=== PATIENT | male | born 1935 | race Caucasian/White ===

== ENCOUNTER → 2016-12-15 | Outpatient (CLI) | payer OTHER ==
[~2016-12-15] VITALS: Ht 182.9 cm; Wt 105.2 kg
[~2016-12-15] MED LIST: ADENOSINE 88 MG in GIVE UN-DILUTED 0 ML IV ONE; ADENOSINE 90 MG/30 ML INJ IV ONE; SPIR50TA
== END | disposition home or self-care (01) ==
LOC: Rad HDHVI 08:19
PROVIDERS: ATTEND Internal Medicine Cardiovascular Disease
DX: I48.2 Chronic atrial fibrillation (principal); I10 Essential (primary) hypertension
CPT/HCPCS: 78452; 93005; 93306; 96374; 96375; A9500; J0153

== ENCOUNTER → 2019-10-19 | Emergency (ER) | payer OTHER ==
[~2019-10-19] VITALS: Ht 182.9 cm; Wt 106.6 kg
[~2019-10-19] MED LIST changes: -ADENOSINE 88 MG in GIVE UN-DILUTED 0 ML IV ONE; -ADENOSINE 90 MG/30 ML INJ IV ONE; +AZITHROMYCIN 500MG/ 250ML 250 ML IV ONE; +cefTRIAXone 1GM/50ML D5W 50 ML IV ONE
[2019-10-19 16:22] LABS: Basophils # (auto) 0 10 ^3/uL (0-0.2); Basophils % (auto) 0.1 % (0.0-2.0); Eosinophils # (auto) 0 10 ^3/uL (0-0.8); Hematocrit 39.6 % (41.0-53.0); Hemoglobin 13.1 g/dL (13.5-17.5); Lymphocytes # (auto) 0.4 10 ^3/uL (0.4-5.4); Lymphocytes % (auto) 2.3 % (10.0-50.0); Mean Corpuscular Hemoglobin 32.4 pg (28.0-32.0); Mean Corpuscular Volume 98.1 fL (80.0-100.0); Monocytes # (auto) 1.2 10 ^3/uL (0-1.3); Monocytes % (auto) 6.1 % (0.0-12.0); Neutrophils # (auto) 17.2 10 ^3/uL (1.6-8.6); Neutrophils % (auto) 91.5 % (37.0-80.0); Platelet Count (auto) 139 10^3/uL (140-450); Red Blood Cells 4.04 10^6/uL (4.5-5.90); Red Cell Distribution Width 15.8 % (11.8-14.3); White Blood Cell 18.8 10^3/uL (4.4-10.8)
[2019-10-19 16:37] LABS: INR 1.23 (0.9-1.15); Partial Thromboplastin Time 34.7 sec (23.64-32.05)
[2019-10-19 16:38] LABS: Albumin 3.7 g/dL (3.4-5.0); Calcium 9.2 mg/dL (8.5-10.1); Potassium 4.4 mmol/L (3.5-5.1)
[2019-10-19 16:43] LABS: BUN/Creatinine Ratio 20.3; Total Protein 7.3 g/dL (6.4-8.2)
[2019-10-19 17:19] VITALS: BP 133/48
== END | disposition home or self-care (01) ==
LOC: EDUNIT# 14:59 → EDBD 14:59 → ER 14:59 → EEVIPCON 14:59
DX: S12.000A Unspecified displaced fracture of first cervical vertebra, initial encounter for closed fracture (principal); S09.8XXA Other specified injuries of head, initial encounter; J06.9 Acute upper respiratory infection, unspecified; I10 Essential (primary) hypertension; Z87.11 Personal history of peptic ulcer disease; W06.XXXA Fall from bed, initial encounter; Y93.89 Activity, other specified; Y92.89 Other specified places as the place of occurrence of the external cause; Y99.8 Other external cause status
CPT/HCPCS: 36415; 70450; 71250; 72125; 80053; 85025; 85610; 85730; 96365; 99285; J0456; J0696

== ENCOUNTER 2019-10-25 23:34 | Inpatient (IN) | payer OTHER ==
[~2019-10-25] VITALS: Ht 193 cm; Wt 103.0 kg
[~2019-10-25 23:34] MED LIST changes: -AZITHROMYCIN 500MG/ 250ML 250 ML IV ONE; -cefTRIAXone 1GM/50ML D5W 50 ML IV ONE
[2019-10-26 01:16] LABS: Basophils # (auto) 0 10 ^3/uL (0-0.2); Basophils % (auto) 0.1 % (0.0-2.0); Eosinophils # (auto) 0 10 ^3/uL (0-0.8); Lymphocytes # (auto) 0.5 10 ^3/uL (0.4-5.4); Lymphocytes % (auto) 6.6 % (10.0-50.0); Mean Corpuscular Hemoglobin 32.3 pg (28.0-32.0); Mean Corpuscular Hgb Conc. 33.3 g/dL (32.0-36.0); Mean Corpuscular Volume 97.2 fL (80.0-100.0); Monocytes # (auto) 0.9 10 ^3/uL (0-1.3); Monocytes % (auto) 11.7 % (0.0-12.0); Neutrophils # (auto) 6.3 10 ^3/uL (1.6-8.6); Neutrophils % (auto) 81.6 % (37.0-80.0); Platelet Count (auto) 226 10^3/uL (140-450); Red Blood Cells 4.32 10^6/uL (4.5-5.90); Red Cell Distribution Width 15.3 % (11.8-14.3); White Blood Cell 7.7 10^3/uL (4.4-10.8)
[2019-10-26 01:26] LABS: INR 1.21 (0.9-1.15); Partial Thromboplastin Time 34.7 sec (23.64-32.05)
[2019-10-26 01:28] LABS: Calcium 9.4 mg/dL (8.5-10.1); Potassium 4.9 mmol/L (3.5-5.1)
[2019-10-26 01:30] LABS: Lactic Acid w/Reflex 2.5 mmol/L (0.4-2.0)
[2019-10-26 01:32] LABS: Bilirubin, Total 2.3 mg/dL (0.2-1.0); Total Protein 7.3 g/dL (6.4-8.2)
[2019-10-26] MEDS ORDERED: HYDROcodone-ACET 10/325MG TAB PO PRN (06:45)
[2019-10-26 08:01] LABS: Urine Bacteria NONE SEEN /hpf (None Seen); Urine Blood 1+ /uL (Negative); Urine Hyaline Cast FEW /lpf (0 - 2); Urine Specific Gravity 1.017 (1.001-1.035); Urine WBC 6 /hpf (0 - 3)
[2019-10-26] MEDS ORDERED: ENOXAPARIN SOD 40 MG/0.4 ML SYRINGE SC ONE (10:00)
[2019-10-26] MEDS ORDERED: FUROSEMIDE 20 MG/2 ML VIAL IV ONE (10:00)
[2019-10-26] MEDS ORDERED: CELECOXIB 100 MG CAP PO ONE (10:00)
[2019-10-26] MEDS ORDERED: methylPREDNISolone SOD SUCC 125 MG/2 ML VL IV ONE (10:00)
[2019-10-26] MEDS ORDERED: POTASSIUM CHL 10 Meq TABLET PO ONE (10:00)
[2019-10-26 12:31] VITALS: BP 108/57
[2019-10-26 16:37] VITALS: BP 94/51
[2019-10-26] MEDS ORDERED: PANTOPRAZOLE 40 MG TAB PO SCH (22:00)
== END 2019-10-26 18:51 | DRG 551 ==
LOC: EEVIPCON 23:34 → ER 23:34 → OVERFLOW 23:35 → WEST WING 10-26 09:06
PROVIDERS: ADMIT Internal Medicine; ATTEND Internal Medicine
DX: M50.90 Cervical disc disorder, unspecified, unspecified cervical region (principal); I50.43 Acute on chronic combined systolic (congestive) and diastolic (congestive) heart failure; I48.91 Unspecified atrial fibrillation; I11.0 Hypertensive heart disease with heart failure; J44.9 Chronic obstructive pulmonary disease, unspecified; S09.90XA Unspecified injury of head, initial encounter; W18.39XA Other fall on same level, initial encounter; Z87.11 Personal history of peptic ulcer disease; Z87.891 Personal history of nicotine dependence; Z91.19 Patient's noncompliance with other medical treatment and regimen; Y93.89 Activity, other specified; Y92.89 Other specified places as the place of occurrence of the external cause; Y99.8 Other external cause status
CPT/HCPCS: 36415; 71045; 80053; 81001; 82728; 83605; 83880; 84484; 85025; 85610; 85730; 87040; 87070; 87804; 87880; 93005; 96372; 96374; 96375; G0378

== ENCOUNTER 2019-11-09 11:35 | Inpatient (IN) | payer OTHER ==
[~2019-11-09] VITALS: Ht 190.5 cm; Wt 117.8 kg
[2019-11-09] VITALS (14 sets, daily range): BP systolic 89–128; BP diastolic 44–65
[2019-11-09] MEDS ORDERED: SODIUM CHLORIDE 0.9% 1,000 ML IV ONE ×2 (12:21)
[2019-11-09 13:12] LABS: Basophils # (auto) 0 10 ^3/uL (0-0.2); Basophils % (auto) 0.1 % (0.0-2.0); Eosinophils # (auto) 0 10 ^3/uL (0-0.8); Hemoglobin 12.6 g/dL (13.5-17.5); Lymphocytes # (auto) 0.2 10 ^3/uL (0.4-5.4); Lymphocytes % (auto) 1.8 % (10.0-50.0); Mean Corpuscular Hemoglobin 31.9 pg (28.0-32.0); Mean Corpuscular Volume 96.7 fL (80.0-100.0); Monocytes # (auto) 0.6 10 ^3/uL (0-1.3); Neutrophils # (auto) 12.1 10 ^3/uL (1.6-8.6); Neutrophils % (auto) 93.1 % (37.0-80.0); Nucleated Red Blood Cells % 0.1 %; Platelet Count (auto) 247 10^3/uL (140-450); Red Blood Cells 3.93 10^6/uL (4.5-5.90); Red Cell Distribution Width 14.5 % (11.8-14.3)
[2019-11-09 13:32] LABS: Albumin 2.1 g/dL (3.4-5.0); Calcium 8.3 mg/dL (8.5-10.1)
[2019-11-09 13:38] LABS: BUN/Creatinine Ratio 16.3; Bilirubin, Total 1.1 mg/dL (0.2-1.0); Total Protein 6.6 g/dL (6.4-8.2)
[2019-11-09 13:44] LABS: Potassium 6.8 mmol/L (3.5-5.1)
[2019-11-09] MEDS ORDERED: SODIUM BICARBONATE 8.4% INJ 50ML SYRINGE IV ONE (13:45)
[2019-11-09] MEDS ORDERED: InsuLIN REG 1unit/0.01ml Soln (100units/ml) IV ONE (13:45)
[2019-11-09] MEDS ORDERED: ALBUTEROL SULF 2.5 MG/0.5ML(0.5%) NEB SOLN NEB ONE (13:45)
[2019-11-09] MEDS ORDERED: CALCIUM GLUC 4.65meq/50ml D5AE 50 ML IV ONE (13:45)
[2019-11-09] MEDS ORDERED: DEXTROSE (50%) 50ML SYRG IV ONE (13:45)
[2019-11-09] MEDS: SODIUM ZIRCONIUM CYCL 10 GM PAK PO SCH ×2 (14:45→22:00)
[2019-11-09] MEDS: NOREPINEPHRINE 8 MG/250ML KIT 250 ML IV SCH (15:26)
[2019-11-09] MEDS ORDERED: ALBUMIN 25% 50 ML IV ONE (15:30)
[2019-11-09 17:50] LABS: Urine Bacteria MOD /hpf (None Seen); Urine Blood 3+ /uL (Negative); Urine WBC 4085 /hpf (0 - 3)
[2019-11-09 17:56] LABS: Urine Specific Gravity 1.012 (1.001-1.035)
[2019-11-09] MEDS: SODIUM BICARBONATE 50ML VIAL 75 ML in D5W/SOD CHL 0.45% 1,000 ML IV SCH (17:58)
[2019-11-09] MEDS ORDERED: PIPERACILLIN-TAZOB 3.375GM 100 ML IV SCH (18:45)
[2019-11-09] MEDS ORDERED: MORPHINE SULF INJ 2 MG/ML SYRINGE 1ML IV PRN (18:45)
[2019-11-09] MEDS ORDERED: ONDANSETRON HCL 4 MG/2 ML VIAL IV SCH (18:45)
[2019-11-09] MEDS ORDERED: MORPHINE SULFATE 4 MG/ML SYR/VIAL IV SCH (18:45)
[2019-11-09] MEDS ORDERED: NITROGLYCERIN 0.4 MG SL TAB SL PRN (18:45)
[2019-11-09] MEDS ORDERED: ONDANSETRON HCL 4 MG/2 ML VIAL IV PRN (19:15)
[2019-11-09 20:38] LABS: Amphetamine Screen, Urine NEGATIVE (NEGATIVE); Barbiturate Scree,Urine NEGATIVE (NEGATIVE); Benzodiazephine Screen, Urine NEGATIVE (NEGATIVE); Cannabinoid Screen, Urine NEGATIVE (NEGATIVE); Cocaine Screen, Urine NEGATIVE (NEGATIVE); Opiate Scree,Urine NEGATIVE (NEGATIVE); Phencyclidine Screen, Urine NEGATIVE (NEGATIVE)
[2019-11-09 21:37] LABS: BUN/Creatinine Ratio 14.9; Calcium 8.4 mg/dL (8.5-10.1); Potassium 5.4 mmol/L (3.5-5.1)
[2019-11-09] MEDS: PIPERACILLIN-TAZOB 2.25GM 50 ML IV SCH (22:00)
--- NOTE | 2019-11-09 22:42 | NUR ---
dr Jeong was called to inform him the latest chemistry result: k+ is 5.4 and Na-127, co2-15 , bun-129' and cr-8.68
--- NOTE | 2019-11-09 22:47 | NUR ---
at 1999, pt was received from emergency room per stretcher in no acute distress with IVs intactlfa and rfa with levophed at 5mcg/min and d51/2 with 50 meq nabicarb at 100 ml/hr. On sr and afebrile. álvarez ath draining well
--- NOTE | 2019-11-09 22:50 | NUR ---
at 2030 repositioned and refused oral care and was screaming rojelio when turned. vital signs are stable
[2019-11-10] VITALS (93 sets, daily range): BP systolic 42–132; BP diastolic 38–70
--- NOTE | 2019-11-10 03:32 | NUR ---
2200 asleep and no resp distress. hob up to 45 degrees
--- NOTE | 2019-11-10 03:33 | NUR ---
0000, repositioned , oral care done
--- NOTE | 2019-11-10 04:34 | NUR ---
0200- sleeping,Remains on controlled afib
--- NOTE | 2019-11-10 04:36 | NUR ---
0400 repositioned. refused am care and oral care,doesnt want to open eyes
[2019-11-10 05:07] LABS: Basophils # (auto) 0 10 ^3/uL (0-0.2); Basophils % (auto) 0.2 % (0.0-2.0); Eosinophils # (auto) 0 10 ^3/uL (0-0.8); Hematocrit 34.2 % (41.0-53.0); Hemoglobin 11.3 g/dL (13.5-17.5); Lymphocytes # (auto) 0.2 10 ^3/uL (0.4-5.4); Mean Corpuscular Hemoglobin 31.7 pg (28.0-32.0); Monocytes # (auto) 0.9 10 ^3/uL (0-1.3); Monocytes % (auto) 5.3 % (0.0-12.0); Neutrophils # (auto) 16.3 10 ^3/uL (1.6-8.6); Neutrophils % (auto) 93.5 % (37.0-80.0); Platelet Count (auto) 237 10^3/uL (140-450); Red Blood Cells 3.56 10^6/uL (4.5-5.90); White Blood Cell 17.5 10^3/uL (4.4-10.8)
[2019-11-10 05:31] LABS: Albumin 1.9 g/dL (3.4-5.0); BUN/Creatinine Ratio 15.7; Calcium 7.9 mg/dL (8.5-10.1); Potassium 5.1 mmol/L (3.5-5.1)
[2019-11-10 05:34] LABS: Bilirubin, Total 0.9 mg/dL (0.2-1.0); Total Protein 5.9 g/dL (6.4-8.2)
[2019-11-10] MEDS: SODIUM ZIRCONIUM CYCL 10 GM PAK PO SCH ×3 (05:50→21:33)
[2019-11-10] MEDS: SODIUM BICARBONATE 50ML VIAL 75 ML in D5W/SOD CHL 0.45% 1,000 ML IV SCH ×3 (06:10→23:00)
--- NOTE | 2019-11-10 07:30 | NUR ---
ASSESS- PT. LYING IN BED WITH EYES CLOSED, AROUSABLE TO NAME. ALERT TO SELF ONLY. DENIES ANY PAIN. PT. HAS HARD C-COLLAR IN PLACE 2ND. HX. OF C-SPINE FX. LUNGS CLEAR ROEL. INSPIRATORY AND EXPIRATORY. NO SOB. ON R/A. NO COUGH. ABD. SOFT, FLAT, NON-TENDER. BOWEL SOUNDS ALL FOUR QUADRANTS. F/C TO GRAVITY WITH CLEAR DK. JOAN/BROWN URINE. ARMS WEAK ROEL. LOWER LEGS WITH SEVERE WEAKNESS ROEL. PT. IS INMATE, 2 GUARDS AT BS. ROEL. LE IN SHACKLES WITH ABD. PAD UNDER EACH SHACKLE TO PROTECT THE SKIN. LT. HEEL WITH DTI, OPTIFOAM DSG. D/I. SACRUM WITH ERYTHEMA, BLANCHABLE. LT. ELBOW WITH OPEN WOUND WITH OPTIFOAM DSG. D/I. RT. FOREARM WITH SCAB. RADIAL PULSES WEAK, PALPABLE ROEL. DORSALIS PEDAL PULSES WEAK, PALPABLE ROEL. 1 PLUS EDEMA FT./ANKLES ROEL. ON LEVOPHED GTT. AT 5 MCG. SBP 90'S. IN A-FIB, HR 70'S-80'S WITHOUT ECTOPY.
[2019-11-10] MEDS: PIPERACILLIN-TAZOB 2.25GM 50 ML IV SCH ×2 (09:40→21:33)
[2019-11-10] MEDS: ENOXAPARIN SOD 30 MG/0.3 ML SYRINGE SC SCH (09:40)
--- NOTE | 2019-11-10 10:30 | NUR ---
SBP 90'S-100'S. ON LEVOPHED GTT. AT 5 MCG. MONITORING BP.
--- NOTE | 2019-11-10 13:00 | NUR ---
DR. CHAVEZ Provider/Hospitalist at bedside. GAVE UPDATE ON PT. NEW ORDERS RECEIVED.
--- NOTE | 2019-11-10 13:00 | NUR ---
WOUND CARE NOTE: IN TO SEE PATIENT AT THIS TIME PER WOUND CARE CONSULT REQUEST. PATIENT WAS NOTED UPON ADMIT TO HAVE WOUNDS. ALL WOUNDS PHOTOGRAPHED AT THAT TIME BY BEDSIDE NURSE FOR REFERENCE. PATIENT ADMITTED TO [facility] WITH DIAGNOSIS OF ACUTE RENAL FAILURE. CURRENT JANE SCORE IS 11. PATIENT IS VERY HARD OF HEARING. HE IS S/P FALL PER GUARD AT BEDSIDE. HE FELL OUT OF HIS WHEELCHAIR, AND OBTAINED MULTIPLE WOUNDS. HE HAS BEEN STAYING AT A SNF RECENTLY, PRIOR TO ADMISSION. PATIENT IS NOTED TO HAVE A FULL THICKNESS WOUND TO THE LEFT ELBOW. 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 WOUND MEASURES 0.5 X 0.5 CM, WITH YELLOW WOUND BED, RED PERIWOUND. PERIWOUND IS ALSO EDEMATOUS, WITH WHAT FEELS LIKE FLUID COLLECTION, SUBCUTANEOUSLY. BEDSIDE NURSE MADE AWARE. APPLIED THERAHONEY, OPTIFOAM GENTLE DRESSING.SMALL DTI OVER MASD TO SACRUM/BUTTOCK NOTED. SKIN REMAINS INTACT, PURPLE AND BRIGHT RED. PATIENT ALSO HAS ERYTHEMA THAT IS NON BLANCHABLE WELL BLANCHABLE TO BILATERAL HEELS. SKIN INTACT. PATIENT HAS MULTIPLE SCABBED ABRASIONS/SKIN TEARS TO BILATERAL ARMS. RECOMMEND: FREQUENT TURN SCHEDULE Q2 HOURS, PRN CONDITION PERMITS, WITH PRESSURE REDISTRIBUTION USING PILLOWS/WEDGES, ELEVATION OF BILATERAL HEELS WITH PILLOWS TO OFFLOAD PRESSURE, LOW AIRLOSS, SOFT SETTING ON ICU BED, BID/PRN MOISTURE BARRIER CREAM, OPTIFOAM GENTLE SACRAL DRESSING TO SACRUM/BUTTOCK, NO MASSAGE OF ELENI OR PURPLE SKIN TO THE SACRUM/BUTTOCKS, SKIN/WOUND CARE PLAN, DIETARY CONSULT, CONTINUED MONITORING BY WOUND CARE TEAM. Addendum: 11/10/19 at 1555 by Jaida Hugo RN Amended: Links added.
[2019-11-10] MEDS ORDERED: BUMETANIDE 2.5mg/10ml (0.25 mg/ml) INJ IV ONE (13:15)
--- NOTE | 2019-11-10 13:15 | NUR ---
WOUND CARE BRIAN ADAMS HERE FOR EVALUATION.
[2019-11-10] MEDS: NOREPINEPHRINE 8 MG/250ML KIT 250 ML IV SCH ×2 (14:58→16:50)
--- NOTE | 2019-11-10 15:53 | NUR ---
DR. SHARMA Provider/Hospitalist at bedside. GAVE UPDATE ON PT. NEW ORDERS RECEIVED.
[2019-11-10] MEDS ORDERED: ALBUTEROL SULF 2.5 MG/0.5ML(0.5%) NEB SOLN NEB PRN (16:15)
[2019-11-10] MEDS ORDERED: SODIUM CHLORIDE 0.9% 1,000 ML IV ONE ×2 (16:15→16:30)
[2019-11-10] MEDS ORDERED: VANCOMYCIN PER PHARMACY 0 MG IV SCH (16:15)
[2019-11-10] MEDS ORDERED: VANCOMYCIN 1GM/250ML 250 ML IV ONE (16:45)
--- NOTE | 2019-11-10 18:00 | NUR ---
PT. HAS BEEN RESTING WITH EYES CLOSED. NO SIGNS OF DISTRESS OR DISCOMFORT.
--- NOTE | 2019-11-10 18:15 | NUR ---
Respiratory note: PT RECEIVED ON RA. PT IS CURRENTLY IN NO RESP DISTRESS AT THIS TIME. BS CLR/DIM T/O. SPO2 96%, HR 87, RR 16. NO PRN TX INDICATED. GUARDS BY BEDSIDE WATCHING PT, PT IN NECK BRACE.
[2019-11-10] MEDS: BUMETANIDE 2.5mg/10ml (0.25 mg/ml) INJ IV SCH (21:32)
[2019-11-11] VITALS (38 sets, daily range): BP systolic 77–139; BP diastolic 40–70
--- NOTE | 2019-11-11 03:47 | NUR ---
AT 0130 AM bp DOWN TO 77/46 WHILE i WAS ON BREAK AND JOHNNIE RN TITRATE UP TH RATE TO 9MCG/MIN.AT 0315 i CHANGED THE bp CUFF TO LEFT ARM FROM THE RIGHT ARM AND bpSYSTOLIC WAS UP TO110, oBSERVED THAT THE LEVOPHED SITE IS LUIS EECHYMOTIC AND BLACKISH AND SWOLLEN, rEINSERTED ANGIO CATH 20 GAUGE ON THE LEFT FOREARM WITH GOOD BLLOD RETUN AND TRANSFERRED THE lEVOPHED TO THE [facility], .THE AFFECTED SWOLLEN AND BLACKISH PURPLE RIGHT ARM WAS ELEVATED IN A PILLOWAND APPLIED ice AND DOCUMENTED AND PHOTOGRAPHED, LEVOPHED OFF THIS TIME
--- NOTE | 2019-11-11 03:54 | NUR ---
AT 0230AM, PT WAS BATHED AND CHANGED GOWN AND LINENS, ORAL CARE GIVEN , MOUTH AND LIPS ARE DRIED WASHED AND PETROLATUM APPLIED
[2019-11-11 03:56] LABS: Basophils # (auto) 0 10 ^3/uL (0-0.2); Basophils % (auto) 0.1 % (0.0-2.0); Eosinophils # (auto) 0 10 ^3/uL (0-0.8); Hematocrit 33.8 % (41.0-53.0); Hemoglobin 11.2 g/dL (13.5-17.5); Lymphocytes # (auto) 0.3 10 ^3/uL (0.4-5.4); Lymphocytes % (auto) 2.1 % (10.0-50.0); Mean Corpuscular Hemoglobin 31.6 pg (28.0-32.0); Mean Corpuscular Volume 95.7 fL (80.0-100.0); Monocytes # (auto) 0.9 10 ^3/uL (0-1.3); Monocytes % (auto) 5.9 % (0.0-12.0); Neutrophils # (auto) 14.2 10 ^3/uL (1.6-8.6); Neutrophils % (auto) 91.9 % (37.0-80.0); Nucleated Red Blood Cells % 0.1 %; Platelet Count (auto) 212 10^3/uL (140-450); Red Blood Cells 3.53 10^6/uL (4.5-5.90); Red Cell Distribution Width 14.7 % (11.8-14.3); White Blood Cell 15.5 10^3/uL (4.4-10.8)
[2019-11-11 04:14] LABS: BUN/Creatinine Ratio 15.4; Calcium 7.6 mg/dL (8.5-10.1); Potassium 4.6 mmol/L (3.5-5.1)
[2019-11-11] MEDS: SODIUM BICARBONATE 50ML VIAL 75 ML in D5W/SOD CHL 0.45% 1,000 ML IV SCH ×2 (06:18→20:39)
[2019-11-11] MEDS: SODIUM ZIRCONIUM CYCL 10 GM PAK PO SCH (06:18)
--- NOTE | 2019-11-11 09:10 | NUR ---
NUTRITION Patient was feed breakfast: had a three spoonfuls of apple sauce and two of oatmeal. Patient refused anything else. Also had sips of water. Patient tolerated well.
[2019-11-11] MEDS: BUMETANIDE 2.5mg/10ml (0.25 mg/ml) INJ IV SCH ×2 (10:26→21:41)
[2019-11-11] MEDS: ENOXAPARIN SOD 30 MG/0.3 ML SYRINGE SC SCH (10:26)
[2019-11-11] MEDS: PIPERACILLIN-TAZOB 2.25GM 50 ML IV SCH (10:26)
[2019-11-11] MEDS: ALBUMIN 25% 100 ML IV SCH ×2 (10:26→17:54)
--- NOTE | 2019-11-11 12:20 | NUR ---
MD Dr. Joshua at bedside updated on patient condition with new orders. This RN to input into system. MD spoke to patient regarding plan of care. Will carry out orders per MD.
--- NOTE | 2019-11-11 13:15 | NUR ---
WOUND CARE NOTE: IN TO ASSESS NEW WOUND CONCERN AT THIS TIME. BEDSIDE NURSE PHOTOGRAPHED A NEW IV INFILTRATION TO THE RIGHT FOREARM FOR REFERENCE. PATIENT'S RIGHT FOREARM IS EDEMATOUS, WITH ERYTHEMA AND ECCHYMOSIS. ADVISED BEDSIDE NURSE TO ELEVATE ARM UP ONTO PILLOWS FOR EDEMA CONTROL, AND CLOSELY MONITOR SKIN TO THE AREA. NO BLISTERING NOTED AT THIS TIME. WOUND CARE TEAM WILL CONTINUE TO MONITOR PATIENT FOR SKIN INTEGRITY. Addendum: 11/11/19 at 1608 by Jaida Hugo RN Amended: Links added.
[2019-11-11] MEDS: LINEZOLID 600MG/300ML 300 ML IV SCH ×2 (13:49→21:41)
--- NOTE | 2019-11-11 15:08 | NUR ---
Nutrition Consult Est Energy needs 8541-0550 kcal (25-30 kcal/kg IBW 87.7) Est protein needs 89-118(0.6-0.8g/kg BW, consider adjusting when CHANEL resolves) Will reassess prn. Consider adding Nephrovite and Vitamin C daily Addendum: 11/11/19 at [address] Amended: Links added.
--- NOTE | 2019-11-11 18:23 | NUR ---
ASSESSED PT @ THIS TIME FOR PRN MED NEB TX. PT IS RESTING COMFORTABLY IN BED. HE STATES HIS BREATHING IS DOING FINE. NO DISTRESS NOTED. CURRENTLY ON R/A 96%, HR 90 AND RR 16. BS ARE DIMINISHED T/O. PT IS AWARE TO CALL IF HE FEELS SOB. GUARDS @ BEDSIDE.
--- NOTE | 2019-11-11 20:11 | NUR ---
PT REFUSING TO EAT DINNER PT STATED "I DON'T FEEL LIKE EATING"
--- NOTE | 2019-11-11 20:12 | NUR ---
IMPLEMENTED COOLING MEASURES - T100.2
[2019-11-11] MEDS: MORPHINE SULFATE 4 MG/ML SYR/VIAL IV PRN (21:42)
--- NOTE | 2019-11-11 22:40 | NUR ---
PAIN ASSESSMENT PATIENT IS SLEEPING COMFORTABLY IN BED, NO SIGN OF FACIAL GRIMACING.
[2019-11-12] VITALS (58 sets, daily range): BP systolic 77–133; BP diastolic 32–104
[2019-11-12] MEDS: SODIUM BICARBONATE 50ML VIAL 75 ML in D5W/SOD CHL 0.45% 1,000 ML IV SCH ×3 (01:07→17:20)
[2019-11-12] MEDS: ALBUMIN 25% 100 ML IV SCH (02:06)
--- NOTE | 2019-11-12 03:55 | NUR ---
ADVERTISING JOB TITLES UNABLE TO DRAW BLOOD FOR BMP LABS PER ADVERTISING JOB TITLES REPOT PT IS HARD STICK, "WILL TRY AGAIN IN A MORNING"
--- NOTE | 2019-11-12 06:35 | NUR ---
Respiratory note: PT ASSESSED FOR PRN MN TX. HR 84, RR 10, POX 98% ON RA, BREATH SOUNDS ARE CLEAR. NO SOB OR DISTRESS NOTED. PT NOTIFY TO HAVE RT PAGE FOR MN TX.
[2019-11-12] MEDS: MORPHINE SULFATE 4 MG/ML SYR/VIAL IV PRN ×3 (07:45→20:27)
[2019-11-12 08:17] LABS: BUN/Creatinine Ratio 15.9; Calcium 7.8 mg/dL (8.5-10.1); Potassium 4.4 mmol/L (3.5-5.1)
--- NOTE | 2019-11-12 09:30 | NUR ---
DR. MCINTYRE AT BEDSIDE: UPDATE MD UPDATED ON PT'S CURRENT STATUS, LABS FROM THIS AM AND POC FOR TODAY. INFORMED MD THAT PT'S BUN CURRENTLY IS 139. WILL CARRY OUT ANY ORDERS GIVEN. CONTINUE CARE.
[2019-11-12] MEDS: BUMETANIDE 2.5mg/10ml (0.25 mg/ml) INJ IV SCH ×2 (10:13→22:13)
[2019-11-12] MEDS: LINEZOLID 600MG/300ML 300 ML IV SCH ×2 (10:13→22:13)
[2019-11-12] MEDS: ENOXAPARIN SOD 30 MG/0.3 ML SYRINGE SC SCH (10:14)
[2019-11-12 10:41] LABS: Basophils # (auto) 0 10 ^3/uL (0-0.2); Basophils % (auto) 0.1 % (0.0-2.0); Eosinophils # (auto) 0 10 ^3/uL (0-0.8); Eosinophils % (auto) 0.1 % (0.0-7.0); Hematocrit 36.4 % (41.0-53.0); Hemoglobin 11.8 g/dL (13.5-17.5); Lymphocytes # (auto) 0.6 10 ^3/uL (0.4-5.4); Lymphocytes % (auto) 3.7 % (10.0-50.0); Mean Corpuscular Hemoglobin 31.7 pg (28.0-32.0); Mean Corpuscular Hgb Conc. 32.3 g/dL (32.0-36.0); Mean Corpuscular Volume 98.1 fL (80.0-100.0); Monocytes # (auto) 1.2 10 ^3/uL (0-1.3); Monocytes % (auto) 7.2 % (0.0-12.0); Neutrophils # (auto) 14.9 10 ^3/uL (1.6-8.6); Neutrophils % (auto) 88.9 % (37.0-80.0); Platelet Count (auto) 166 10^3/uL (140-450); Red Blood Cells 3.71 10^6/uL (4.5-5.90); White Blood Cell 16.8 10^3/uL (4.4-10.8)
[2019-11-12] MEDS: NOREPINEPHRINE 8 MG/250ML KIT 250 ML IV SCH (13:00)
[2019-11-12] MEDS: ceFAZolin 1GM/50ML 50 ML IV SCH (13:00)
--- NOTE | 2019-11-12 13:44 | NUR ---
DR. MARQUEZ AT BEDSIDE: ORDERS MD UPDATED ON PT'S CURRENT STATUS, LABS AND POC FOR TODAY. INFORMED MD ON PT'S TRENDING LABS AND HEMODYNAMICS AT THIS TIME. CONTINUE CARE.
--- NOTE | 2019-11-12 19:30 | NUR ---
PT REFUSED DINNER FOR THIS EVENING.
--- NOTE | 2019-11-12 19:35 | NUR ---
OPENING NOTE RECEIVED REPORT FROM DAY SHIFT RN AND ASSUMED CARE OF PT. PT IS RESTING IN BED WITH CERVICAL SPINE COLLAR APPLIED FOR FRACTURE, 1.5 L NC SUPPLEMENTAL 02. VITAL SIGNS STABLE WITH NO S/S OF DISTRESS. PER REPORT PT HAS BEEN BRADYPNEIC. BASS CATHETER IN PLACE AND DRAINING APPROPRIATELY. WILL CONTINUE TO MONITOR AND ASSESS PT.
[2019-11-13] VITALS (85 sets, daily range): BP systolic 83–132; BP diastolic 36–88
[2019-11-13] MEDS: MORPHINE SULFATE 4 MG/ML SYR/VIAL IV PRN ×4 (00:40→19:54)
[2019-11-13] MEDS: ceFAZolin 1GM/50ML 50 ML IV SCH ×2 (00:40→14:15)
--- NOTE | 2019-11-13 00:47 | NUR ---
PT CARE DID FULL KRISTINE CHANGE. ATTEMPTED TO GIVE PT BATH, BUT HE WAS SCREAMING, MOANING, AND THRASHING IN BED DESPITE MORPHINE ADMINISTRATION. BATH AND GOWN CHANGE HELD FOR NOW. WILL ATTEMPT AGAIN LATER.
--- NOTE | 2019-11-13 03:46 | NUR ---
CLINICAL RESEARCH DIRECTOR UNABLE TO OBTAIN LABS AT THIS TIME. WILL HAVE ANOTHER TECH ATTEMPT.
--- NOTE | 2019-11-13 04:35 | NUR ---
UNABLE TO OBTAIN LABS.
[2019-11-13] MEDS: NOREPINEPHRINE 8 MG/250ML KIT 250 ML IV SCH (05:06)
--- NOTE | 2019-11-13 05:56 | NUR ---
PRN MN TX NOT INDICATED AT THIS TIME. PT ON 2L/MIN VIA NC, 98% O2 SATS, HR 86 BPM, RR16 BPM. RESPIRATION IS EQUAL AND NON LABORED. BS ARE CLEAR TO AUSCULTATION, SKIN IS DRY AND WARM TO THE TOUCH. NO SOB OR ANY OTHER RESPIRATORY DISTRESS NOTED. WILL CONTINUE TO MONITOR PT.
--- NOTE | 2019-11-13 06:15 | NUR ---
GUZZLER BUILDER AT BEDSIDE TO ATTEMPT TO OBTAIN LABS. SUCCESSFUL. AWAITING RESULTS.
[2019-11-13] MEDS: SODIUM BICARBONATE 50ML VIAL 75 ML in D5W/SOD CHL 0.45% 1,000 ML IV SCH (06:42)
[2019-11-13 06:46] LABS: Basophils # (auto) 0 10 ^3/uL (0-0.2); Basophils % (auto) 0.1 % (0.0-2.0); Eosinophils # (auto) 0.1 10 ^3/uL (0-0.8); Eosinophils % (auto) 0.6 % (0.0-7.0); Hematocrit 32.6 % (41.0-53.0); Hemoglobin 11.1 g/dL (13.5-17.5); Lymphocytes # (auto) 0.4 10 ^3/uL (0.4-5.4); Mean Corpuscular Hemoglobin 32.6 pg (28.0-32.0); Mean Corpuscular Volume 95.9 fL (80.0-100.0); Monocytes # (auto) 0.9 10 ^3/uL (0-1.3); Monocytes % (auto) 4.8 % (0.0-12.0); Neutrophils # (auto) 17.3 10 ^3/uL (1.6-8.6); Neutrophils % (auto) 92.5 % (37.0-80.0); Platelet Count (auto) 172 10^3/uL (140-450); Red Cell Distribution Width 14.9 % (11.8-14.3); White Blood Cell 18.7 10^3/uL (4.4-10.8)
[2019-11-13 06:59] LABS: Potassium 4.2 mmol/L (3.5-5.1)
[2019-11-13 07:12] LABS: BUN/Creatinine Ratio 16.6; Calcium 7.4 mg/dL (8.5-10.1)
[2019-11-13] MEDS: BUMETANIDE 2.5mg/10ml (0.25 mg/ml) INJ IV SCH (09:35)
[2019-11-13] MEDS: LINEZOLID 600MG/300ML 300 ML IV SCH ×2 (09:43→21:31)
[2019-11-13] MEDS: PANTOPRAZOLE 40 MG/10 ML VIAL INJ IV SCH (09:46)
[2019-11-13] MEDS: ENOXAPARIN SOD 30 MG/0.3 ML SYRINGE SC SCH (10:00)
[2019-11-13] MEDS: SODIUM CHLORIDE 0.9% 1,000 ML IV SCH (12:15)
[2019-11-13 12:23] LABS: Phosphorus 8.8 mg/dL (2.5-4.90)
[2019-11-13] MEDS: FUROSEMIDE INJECTION 100 MG in SODIUM CHL 0.9% 100 ML IV SCH ×2 (13:00→21:32)
--- NOTE | 2019-11-13 15:38 | NUR ---
MD PHONE CALL; Spoke with physician from [facility], provided an update on condition and current POC.
--- NOTE | 2019-11-13 16:26 | NUR ---
Midline Placement: Patient educated on need for midline placement. All risks and benefits explained and all questions and concerns addresses prior to procedure. 18g/10cm midline inserted via right basilic vein using Ultrasound. Sterile technique utilized. Blood return obtained from lumen and flushed easily with NS using proper technique. Midline secured with saline lock; biodisc and occlusive dressing applied. Primary RN notified. Midline lot #[id number]
--- NOTE | 2019-11-13 18:45 | NUR ---
PT ASSESSED FOR PRN TX. PT IS SLEEPING WITH NO ACUTE RESP DISTRESS NOTED. TX IS NOT INDICATED. HR 88 POX 97% ON 2LNC RR 14 B/S CLEAR.
--- NOTE | 2019-11-13 19:45 | NUR ---
NUTRITION ASKED PT IF HE WOULD LIKE HIS DINNER TRAY AND HE REFUSED. STATING HE "ISN'T HUNGRY". ENCOURAGED PO INTAKE OF WATER. TOLD PT TO LET THIS RN KNOW IF HE BECAME HUNGRY. WILL ATTEMPT TO FEED PT THIS EVENING.
[2019-11-13 22:29] LABS: BUN/Creatinine Ratio 16.3; Calcium 7.5 mg/dL (8.5-10.1); Potassium 4.3 mmol/L (3.5-5.1)
[2019-11-14] VITALS (89 sets, daily range): BP systolic 88–132; BP diastolic 24–99
[2019-11-14] MEDS: ceFAZolin 1GM/50ML 50 ML IV SCH ×2 (00:39→13:52)
--- NOTE | 2019-11-14 02:00 | NUR ---
PT CARE GAVE PT CHG BATH, GOWN CHANGE, AND FULL KRISTINE CHANGE. PT DID NOT TOLERATE WELL. HE WAS MOANING, GRIMACING, AND PROTECTING THE ENTIRE TIME DESPITE USE OF RELAXATION TECHNIQUES. VITAL SIGNS STABLE. PT TURNED. DENIED PO INTAKE AGAIN. WILL MEDICATE PER MD ORDER.
[2019-11-14] MEDS: MORPHINE SULFATE 4 MG/ML SYR/VIAL IV PRN ×3 (02:24→15:35)
[2019-11-14] MEDS: NOREPINEPHRINE 8 MG/250ML KIT 250 ML IV SCH ×2 (03:35→14:15)
[2019-11-14 03:46] LABS: Basophils # (auto) 0 10 ^3/uL (0-0.2); Basophils % (auto) 0.1 % (0.0-2.0); Eosinophils # (auto) 0.1 10 ^3/uL (0-0.8); Eosinophils % (auto) 0.5 % (0.0-7.0); Hematocrit 33.2 % (41.0-53.0); Hemoglobin 11.2 g/dL (13.5-17.5); Lymphocytes # (auto) 0.4 10 ^3/uL (0.4-5.4); Mean Corpuscular Hemoglobin 32.1 pg (28.0-32.0); Mean Corpuscular Hgb Conc. 33.9 g/dL (32.0-36.0); Mean Corpuscular Volume 94.8 fL (80.0-100.0); Monocytes # (auto) 0.9 10 ^3/uL (0-1.3); Monocytes % (auto) 4.9 % (0.0-12.0); Neutrophils # (auto) 17.8 10 ^3/uL (1.6-8.6); Neutrophils % (auto) 92.5 % (37.0-80.0); Platelet Count (auto) 150 10^3/uL (140-450); Red Cell Distribution Width 15.1 % (11.8-14.3); White Blood Cell 19.2 10^3/uL (4.4-10.8)
[2019-11-14 04:03] LABS: BUN/Creatinine Ratio 15.6; Calcium 7.2 mg/dL (8.5-10.1); Potassium 4.3 mmol/L (3.5-5.1)
[2019-11-14] MEDS: SODIUM CHLORIDE 0.9% 1,000 ML IV SCH ×2 (05:45→22:02)
--- NOTE | 2019-11-14 07:04 | NUR ---
RT NOTES: NO TX INDICATED AT THIS TIME. NO SIGNS OF DISTRESS. PT STATES HE IS SLIGHTLY SOB BUT ONLY BECAUSE OF THE NECK BRACE. ON 2L NC SPO2 98 HR 91 RR 14. BP 100/58. LUNG SOUNDS CLEAR T/O. GUARD IS BEDSIDE. PT AWARE TO PAGE IF NEED FOR TX ARISES. WILL CONTINUE TO MONITOR.
--- NOTE | 2019-11-14 07:11 | NUR ---
REPORT RECEIVED FROM FLAT IRONER RN
--- NOTE | 2019-11-14 08:58 | NUR ---
DR. MCINTYRE AT BEDSIDE
[2019-11-14] MEDS: FUROSEMIDE INJECTION 100 MG in SODIUM CHL 0.9% 100 ML IV SCH ×6 (09:35→22:02)
[2019-11-14] MEDS: ALLOPURINOL 100 MG TAB PO SCH (10:11)
[2019-11-14] MEDS: LINEZOLID 600MG/300ML 300 ML IV SCH ×2 (10:11→22:01)
[2019-11-14] MEDS: PANTOPRAZOLE 40 MG/10 ML VIAL INJ IV SCH (10:11)
[2019-11-14] MEDS: ENOXAPARIN SOD 30 MG/0.3 ML SYRINGE SC SCH (10:11)
[2019-11-14 11:11] LABS: BUN/Creatinine Ratio 17.7; Calcium 7.1 mg/dL (8.5-10.1); Potassium 4.6 mmol/L (3.5-5.1)
--- NOTE | 2019-11-14 12:31 | NUR ---
Nutrition Follow-up Notes Wt.: 147.6 kg pt sleeping with guards by bedside. per pt records pt with CKD no HD yet. pt with no distress noted. currently in renal std diet with inadequate PO of < 50% x 4 per RN doc Est Energy needs 6191-0332 kcal (25-30 kcal/kg IBW 87.7) Est protein needs 89-118(0.6-0.8g/kg BW, consider adjusting when CHANEL resolves) Will reassess prn. Labs: BUN 34 H, CREAT 8.59 H, CA 7.2 L, PHOS 8.8 H Skin: Jose scale 13, mod risk, pt with multiple wounds. Please refer to wound assessment report for full details. GI: Pt had 1 BM yesterday per arranging funeral director. PES: Partially resolved: Altered nutrition related lab values r/t current medical condition aeb elev RFTs Obesity r/t excessive PO intake aeb 168% of IBW and BMI of 40.7 which is morbidly obese Will continue to monitor PO intake, skin status, pertinent labs and weight trend. F/u in 3-5 days. Rec.: 1.) Consider renal specific 90 gm protein 2 gm na low phos diet if pt not on HD. 2) continue renal std diet if pt on HD. 3) consider nephrovite and Vit C bid. 4) continue current plan of care
[2019-11-14 13:52] LABS: INR 1.56 (0.9-1.15); Partial Thromboplastin Time 42.5 sec (23.64-32.05)
--- NOTE | 2019-11-14 14:54 | NUR ---
COMFORT PATIENT RESTING NO S/S OF DISTRESS AT THIS TIME
--- NOTE | 2019-11-14 15:38 | NUR ---
PICC NURSES AT BEDSIDE
[2019-11-14] MEDS ORDERED: LIDOCAINE 1% (LOCAL ANESTH.) PF 5ml SDV ID ONE (16:45)
--- NOTE | 2019-11-14 16:53 | NUR ---
PICC line placement Patient educated on need for PICC line placement. All risks and benefits explained and all questions and concerns addressed prior to procedure. Noted past medical history and allergies with no contraindications. INR and Plt counts within acceptable range. 5 fr PICC line inserted via RIGHT BASILIC vein using food[employer] US and Tip Location System. Sterile technique with maximum barrier precautions utilized. CURRENT MIDLINE WAS EXCHANGED OVER A GUIDWIRE UTILIZING STERILE TECHNIQUE. MIDLINE WAS REMOVED WITH CATHETER FULLY INTACT. Blood return obtained from each of THE 3 lumens and each flushed easily with NS using proper technique. PICC secured with Stat-lock; biodisc and occlusive dressing applied. Stat portable chest x-ray obtained for PICC tip placement. *Baseline Arm Circumference 30CM. INTERNAL LENGTH 41CM. EXTERNAL LENGTH 0CM. PICC lot # [id number]. Note:
--- NOTE | 2019-11-14 16:57 | NUR ---
OK to use PICC line Xray completed. OK to use PICC line. PRIMARY RN NOTIFIED
[2019-11-14 17:21] LABS: BUN/Creatinine Ratio 17.4; Calcium 7.6 mg/dL (8.5-10.1); Potassium 4.4 mmol/L (3.5-5.1)
--- NOTE | 2019-11-14 18:02 | NUR ---
PT ASSESSED FOR PRN MED NEB TX. SPO2 97% ON 2L NC, HR 90, RR 14. NO SIGNS OF RESPIRATORY DISTRESS. PT RESTING COMFORTABLY. WILL CONTINUE TO MONITOR.
[2019-11-14] MEDS ORDERED: KETOROLAC TROMETH 30 MG/ML 1ML VIAL IV PRN (20:00)
--- NOTE | 2019-11-14 22:00 | NUR ---
Patient bathe/linen change Patient given complete bath. Skin integrity assessed for any changes. Dressing changed on sacrum. Linens changed. Patient repositioned for comfort.
[2019-11-14] MEDS: SODIUM CHLOR 0.9% PF (SALINE LOCK) 10ML VIAL/SYR IV SCH (22:02)
[2019-11-14] MEDS: MORPHINE SULF INJ 2 MG/ML SYRINGE 1ML IV PRN (22:08)
[2019-11-15] VITALS (98 sets, daily range): BP systolic 74–138; BP diastolic 39–117
[2019-11-15] MEDS: NOREPINEPHRINE 8 MG/250ML KIT 250 ML IV SCH ×4 (00:24→21:45)
[2019-11-15] MEDS: ceFAZolin 1GM/50ML 50 ML IV SCH ×2 (00:34→13:41)
[2019-11-15] MEDS: FUROSEMIDE INJECTION 100 MG in SODIUM CHL 0.9% 100 ML IV SCH ×3 (01:30→06:35)
[2019-11-15 04:07] LABS: Basophils # (auto) 0 10 ^3/uL (0-0.2); Eosinophils # (auto) 0.1 10 ^3/uL (0-0.8); Eosinophils % (auto) 0.5 % (0.0-7.0); Hematocrit 33.9 % (41.0-53.0); Hemoglobin 11.1 g/dL (13.5-17.5); Lymphocytes # (auto) 0.4 10 ^3/uL (0.4-5.4); Lymphocytes % (auto) 2.1 % (10.0-50.0); Mean Corpuscular Hemoglobin 31.4 pg (28.0-32.0); Mean Corpuscular Hgb Conc. 32.8 g/dL (32.0-36.0); Mean Corpuscular Volume 95.8 fL (80.0-100.0); Monocytes # (auto) 0.8 10 ^3/uL (0-1.3); Monocytes % (auto) 4.4 % (0.0-12.0); Neutrophils # (auto) 16.3 10 ^3/uL (1.6-8.6); Platelet Count (auto) 140 10^3/uL (140-450); Red Blood Cells 3.54 10^6/uL (4.5-5.90); Red Cell Distribution Width 15.1 % (11.8-14.3); White Blood Cell 17.5 10^3/uL (4.4-10.8)
[2019-11-15 04:22] LABS: Alanine Aminotransferase < 6 U/L (16-61); Albumin 1.4 g/dL (3.4-5.0); Anion Gap 16 (5-15); Aspartate Aminotransferase 21 U/L (15-37); BUN/Creatinine Ratio 16.2; Calcium 7.2 mg/dL (8.5-10.1); Carbon Dioxide 21 mmol/L (21-32); Chloride 86 mmol/L (98-107); GFR African American 8 mL/min; GFR Non-African American 6 mL/min; Glucose 86 mg/dL (74-106); Potassium 4.7 mmol/L (3.5-5.1); Sodium 123 mmol/L (136-145)
[2019-11-15 04:25] LABS: Alkaline Phosphatase 94 U/L (45-117); Bilirubin, Total 1.8 mg/dL (0.2-1.0); Total Protein 4.9 g/dL (6.4-8.2)
[2019-11-15 04:27] LABS: Blood Urea Nitrogen 138 mg/dL (7-18)
--- NOTE | 2019-11-15 07:05 | NUR ---
REPORT RECEIVED FROM ADULT AND PEDIATRIC NEUROLOGIST NURSE. PATIENT IS RESTING IN BED. RESPIRATIONS EVEN AND UNLABORED. NO SIGNS OF ACUTE DISTRESS NOTED. BED IN LOW POSITION WITH 2 GUARDS AT BEDSIDE. WILL CONTINUE TO MONITOR.
--- NOTE | 2019-11-15 07:05 | NUR ---
Report is given to Ximena Avalos RN.
[2019-11-15] MEDS ORDERED: SODIUM CHL 0.9% 1000 ML BAG XX ONE (08:00)
--- NOTE | 2019-11-15 08:00 | NUR ---
PAIN PATIENT COMPLAINS OF PAIN 10/10 ALL OVER WITH ANY MOVEMENT OR TOUCH. MEDICATED PATIENT PER MD ORDER.
[2019-11-15] MEDS: MORPHINE SULF INJ 2 MG/ML SYRINGE 1ML IV PRN ×2 (08:01→17:58)
--- NOTE | 2019-11-15 08:52 | NUR ---
DR MCINTYRE ON UNIT TO DISCUSS PLAN OF CARE. ALL ORDERS NOTED IN CHART. PER MD PATIENT TO HAVE DIALYSIS TODAY ONCE CATHETER IS PLACED.
[2019-11-15 09:00] LABS: % Iron Saturation 94.7 % (20-55)
--- NOTE | 2019-11-15 09:05 | NUR ---
SPOKE TO DR SHARMA TO CONFIRM CONSENT FOR DIALYSIS CATHETER PLACEMENT. PER MD BRAGG TO PLACE CATHETER.
--- NOTE | 2019-11-15 09:51 | NUR ---
DR ISAAC AT BEDSIDE TO PLACE DIALYSIS CATHETER.
--- NOTE | 2019-11-15 09:56 | NUR ---
Respiratory note: PT ASSESSED FOR PRN TX. FOUND PT ON 2 LPM NC SP02 96&. PT IS IN NO RESPIRATORY DISTRESS AT THIS TIME. WILL CONTINUE TO MONITOR.
[2019-11-15] MEDS: ALLOPURINOL 100 MG TAB PO SCH (10:00)
[2019-11-15] MEDS ORDERED: HEPARIN 1,000 UNITS/ml 1ML VIAL ONE (10:04)
[2019-11-15] MEDS: LINEZOLID 600MG/300ML 300 ML IV SCH ×2 (10:26→22:06)
[2019-11-15] MEDS: SODIUM CHLOR 0.9% PF (SALINE LOCK) 10ML VIAL/SYR IV SCH ×2 (10:26→22:00)
[2019-11-15] MEDS: ENOXAPARIN SOD 30 MG/0.3 ML SYRINGE SC SCH (10:27)
[2019-11-15 10:29] LABS: Hepatitis A Ab IgM Negative; Hepatitis B Core IgM Negative
[2019-11-15 10:30] LABS: Hepatitis B Surface Antigen Negative (Negative); Hepatitis C Antibody Negative (Negative)
[2019-11-15] MEDS ORDERED: HEPARIN SODIUM (PORCINE) 5000 UNITS/ML 1ML VIAL SC ONE (10:30)
[2019-11-15] MEDS: SODIUM CHLORIDE 0.9% 1,000 ML IV SCH ×2 (10:37→22:30)
[2019-11-15] MEDS: PANTOPRAZOLE 40 MG/10 ML VIAL INJ IV SCH (13:41)
--- NOTE | 2019-11-15 15:42 | NUR ---
DIALYSIS NURSE AT BEDSIDE
--- NOTE | 2019-11-15 16:18 | NUR ---
SPOKE TO DR SHARMA ABOUT PATIENTS CURRENT BLOOD PRESSURE OF 74/45 DURING DIALYSIS. PER OK TO MAX CURRENT PRESSOR AND START NEXT PRESSOR NEEDED TO MAINTAIN MAP OF 65-70. ALL ORDERS NOTED IN CHART.
[2019-11-15] MEDS ORDERED: PHENYLEPHRINE IV 250 ML IV ONE (16:22)
[2019-11-15] MEDS: PHENYLEPHRINE IV 250 ML IV SCH ×3 (16:30→22:30)
--- NOTE | 2019-11-15 20:00 | NUR ---
FEDERAL INMATE FROM [facility]. MEDICAL DIAGNOSIS PER MD: ACUTE RENAL FAILURE AND SEPSIS. DIALYSIS PATIENT. DIALIZED TODAY THROUGH A RIGHT FEMORAL JANI CATH. VASOPRESSOR: NEOSYNEPHRINE AND LEVOPHED. ATRIAL FIB WITH FREQUENT VENTRICULAR ABERRANCIES. PATIENT SLEEPS READILY. PAINFUL WHEN TOUCHING HIM. DOES NOT MOVES EXTREMITIES TO COMMAND. RESISTANT TO ORAL CARE. ON 2LNP. RR13. RENAL DIET BUT HAS NOT BEEN TAKING IT. BOTH ARMS ARE WEEPING. LEFT ELBOW SKIN TEAR WITH FOAM DRESSING. RIGHT FOREARM OPTIFOAM OVER AN OLD IV SITE WOUND. HAS A SHER PICC LINE PLACED FROM 11/14/19. BASS IN PLACE TO DOWN DRAIN BAG. 3+ PITTING EDEMA TO ARMS AND LEGS. WOUND CONSULT IN. DIETARY CONSULT IN. SEVERAL LAB VALUES ABNORMAL : NA 123, WBC 17.5, BUN 138 AND CREATININE 8.52
[2019-11-15] MEDS: ENSURE CLEAR Mixed Berry 8oz Carton PO SCH (22:00)
--- NOTE | 2019-11-15 22:00 | NUR ---
ROM EXERCISES TO ARMS. 15% OF MOVEMENT IN THE ARMS. OTHERWISE FULL SUPPORT IN EXERCISE. RAC HAS A FOAM DRESSING OVER A RED/BLACK SITE. NO DRNG. LEFT AC HAS A SKIN TEAR. FOAM DRESSING SATURATED WITH SEROUS FLUID. WOUND CLEANSED WITH WOUND FIRE MEDIC , DRIED, AND NEW FOAM DRESSING APPLIED. LEFT HEEL , DRY PINK WOUND WITH TOP LAYER OF SKIN OFF. NO DRNG ON FOAM DRESSING. NEW FOAM DRESSING APPLIED. BILATERAL SHACKLES TO FEET. BOTH ARMS AND LEGS HAVE AT LEAST 2+ PITTING EDEMA. ALL PULSES WEAK. EXTREMITIES WARM. HEELS OFF BED. REPOSITIONED TO HIS RIGHT SIDE. ORAL CARE DONE. 250CC OF ENSURE GIVEN TO PATIENT . HE IS UNABLE TO DO IT HIMSELF. TRIED STRAW FLUID DROP, 15CC AND 30CC OF ENSURE AT A TIME. HE DID BETTER WITH THE 15CC. COUGHED TWICE BUT HIS MOUTH WAS DRY. OVIDIO AREA BETWEEN HIS SCROTUM AND LEG IS RED AND TENDER. AREA CLEANED AND ZGUARD APPLIED. PICC LINE DRESSING IS CURRENT, BIOPATCH AT SITE. ATRIAL FIB RATE RANGE 107-132 WHILE I WAS FEEDING HIM. URINE PER BASS IS BELOW BORDERLINE AND IS A DARK TEA COLOR. CERVICAL COLLAR ON PATIENT. WEANING NEOSYNEPHRINE DOWN.
[2019-11-16] VITALS (93 sets, daily range): BP systolic 81–171; BP diastolic 28–131
--- NOTE | 2019-11-16 | NUR ---
INCONTINENT OF LIQUID JOAN STOOL. OVIDIO CARE DONE AND ZGUARD APPLIED. ATRIAL FIB RATE IS COMING DOWN WITH THE WEANING OF THE NEOSYNEPHRINE. LUNGS CLEAR, DIM IN BASES. ABDOMEN SOFT. URINE IS A DARK TEA COLOR. OLIGURIC. WEEPING A LARGE AMOUNT FROM THE RIGHT FOREARM AND A LARGE AMOUNT FROM THE SKIN TEAR ON THE LEFT ELBOW.
[2019-11-16] MEDS: PHENYLEPHRINE IV 250 ML IV SCH ×3 (00:53→22:30)
[2019-11-16] MEDS: ceFAZolin 1GM/50ML 50 ML IV SCH ×2 (00:59→13:00)
--- NOTE | 2019-11-16 01:18 | NUR ---
NEOSYNEPHRINE OFF. SBP STABLE.
[2019-11-16] MEDS: NOREPINEPHRINE 8 MG/250ML KIT 250 ML IV SCH ×4 (01:30→20:30)
[2019-11-16 03:54] LABS: Basophils # (auto) 0 10 ^3/uL (0-0.2); Basophils % (auto) 0.1 % (0.0-2.0); Eosinophils # (auto) 0 10 ^3/uL (0-0.8); Eosinophils % (auto) 0.1 % (0.0-7.0); Hematocrit 31.9 % (41.0-53.0); Hemoglobin 10.7 g/dL (13.5-17.5); Lymphocytes # (auto) 0.3 10 ^3/uL (0.4-5.4); Lymphocytes % (auto) 2.5 % (10.0-50.0); Mean Corpuscular Hemoglobin 32.1 pg (28.0-32.0); Mean Corpuscular Hgb Conc. 33.6 g/dL (32.0-36.0); Mean Corpuscular Volume 95.5 fL (80.0-100.0); Monocytes # (auto) 0.8 10 ^3/uL (0-1.3); Monocytes % (auto) 5.9 % (0.0-12.0); Neutrophils # (auto) 12.5 10 ^3/uL (1.6-8.6); Neutrophils % (auto) 91.4 % (37.0-80.0); Platelet Count (auto) 108 10^3/uL (140-450); Red Blood Cells 3.34 10^6/uL (4.5-5.90); Red Cell Distribution Width 14.9 % (11.8-14.3); White Blood Cell 13.7 10^3/uL (4.4-10.8)
--- NOTE | 2019-11-16 04:00 | NUR ---
DIARRHEA. JOAN SOFT LIQUID. STILL DOES NOT ANSWER ORIENTATION QUESTIONS. IN FACT, HE DOESN'T ANSWER ANY QUESTIONS. I'LL SAY " YOU'VE GOT THE POOPS TONIGHT". HE WILL ANSWER "YES, I DO".. BUT THAT'S IT. LUNGS CLEAR, DIM IN BASES. HAD TO PUT THE NEOSYNEPHRINE BACK ON FOR B/P SUPPORT.
[2019-11-16 04:18] LABS: Calcium 7.2 mg/dL (8.5-10.1); Potassium 4.4 mmol/L (3.5-5.1)
[2019-11-16 04:21] LABS: BUN/Creatinine Ratio 15.2; Phosphorus 8.5 mg/dL (2.5-4.90)
[2019-11-16] MEDS: ENSURE CLEAR Mixed Berry 8oz Carton PO SCH ×2 (05:44→12:00)
--- NOTE | 2019-11-16 06:30 | NUR ---
LARGE INCONTINENT DIARRHEA, JOAN SOFT LIQUID. OVIDIO CARE. ZGUARD TO BUTTOCKS. NEW OPTIFOAM. BLISTER ON INSIDE OF LEFT FOOT BROKEN. CLEANSED AND FOAM DRESSING APPLIED.
--- NOTE | 2019-11-16 07:00 | NUR ---
REPORT RECEIVED FROM GUYLINE OPERATOR NURSE. PATIENT RESTING IN BED AT THIS TIME. RESPIRATIONS EVEN AND UNLABORED. NO SIGNS OF ACUTE DISTRESS NOTED. BED IN LOW POSITION, 2 GUARDS AT BEDSIDE. WILL CONTINUE TO MONITOR.
[2019-11-16] MEDS: SODIUM CHLORIDE 0.9% 1,000 ML IV SCH (07:13)
--- NOTE | 2019-11-16 08:00 | NUR ---
PATIENT DRINKING MINIMAL AMOUNTS OF ENSURE THAT IS ORDERED. PATIENT REFUSING TO EAT ANY FOOD.
--- NOTE | 2019-11-16 08:00 | NUR ---
BOWEL MOVEMENT PATIENT HAD MODERATE LIQUID BOWEL MOVEMENT, FOUL SMELLING. WILL SEND FOR C DIFF IF ANOTHER BOWEL MOVEMENT.
[2019-11-16] MEDS: MORPHINE SULF INJ 2 MG/ML SYRINGE 1ML IV PRN ×2 (08:29→16:46)
[2019-11-16] MEDS: ALLOPURINOL 100 MG TAB PO SCH (10:13)
[2019-11-16] MEDS: PANTOPRAZOLE 40 MG/10 ML VIAL INJ IV SCH (10:13)
[2019-11-16] MEDS: ENOXAPARIN SOD 30 MG/0.3 ML SYRINGE SC SCH (10:14)
[2019-11-16] MEDS: SODIUM CHLOR 0.9% PF (SALINE LOCK) 10ML VIAL/SYR IV SCH ×2 (10:14→22:00)
[2019-11-16] MEDS: LINEZOLID 600MG/300ML 300 ML IV SCH (10:14)
--- NOTE | 2019-11-16 10:44 | NUR ---
C DIFF SENT DUE TO PATIENTS DIARRHEA.
--- NOTE | 2019-11-16 11:07 | NUR ---
Nutrition Follow-up and Consult Wt.: 102.4kg pt wt 147kg likely erroneous, pt wt last visit October 25, 2019 wt was 103kg pt sleeping with guards by bedside. per pt records CKD stage 3, RN starting inpatient dialysis. Pt with elevated RFTs still. Pt refusing to eat, consumed some ensure clear. MD discussing placing NG tube for feeding. If TF initiated consider Nepro Carb Steady at 60 ml/hr to provide 2592 kcal and 117g protein+ 1 prostat per day. Est Energy needs 0849-7245 kcal (25-30 kcal/kg IBW 87.7) Est protein needs 122-150(1.2-1.5g/kg BW, CHANEL/CKD III with dialysis) Will reassess prn. Labs: BUN 100H, Creat 6.56H, Ca 7.2L, Alb 1.4L, Glu 114H Skin: BS 9, high risk, pt with multiple wounds. Please refer to wound assessment report for full details. GI: Pt with diarrhea x 6 11/15 per canoe inspector final, culture sent to r/o C diff PES: Altered nutrition related lab values r/t current medical condition aeb elev RFTs PES Altered: Overweight r/t excessive PO intake aeb 117% of IBW and BMI of 28.2 which is overweight Will continue to monitor PO intake, skin status, pertinent labs and weight trend. F/u in 3-5 days. Rec.: 1.) If TF initiated consider Nepro Carb Steady at 60 ml/hr per MD approval, with the addition of 1 prostat 2) When medically feasible and pt decides to eat continue renal std diet if pt on HD, renal specific 90g pro diet if not on HD 3) consider nephrovite and Vit C bid. 4) continue current plan of care
--- NOTE | 2019-11-16 12:46 | NUR ---
WOUND CARE NOTE: Wound care in to see patient for reevaluation of wounds. Patient continue resting in ICU bed in Rm. 110. Patient is awake but not fully oriented. He's max assist in turning and repositioning and his Jose score is 9. Patient is sensitive to touch and moans in every touch. Skin/wound assessment done with the help of charge nurse, BRIAN Guerrero. Patient's bilateral arm noted with weeping edema and erythema with multi scabs and ecchymosis. His L elbow continue to display 0.5x0.5cm puncture wound. Wound is red, draining moderate amount of serous drainage, no odor noted. His bilateral heel continue to display small area of non-blanchable/slow to ralph redness with dry intact brown scab to R posterior ankle. His L medial ankle noted with 1x2.5cm open abrasion. Wound is red with pink cookie wound, no drainage/odor noted.Cleansed L elbow and L medial ankle wound with wound cleanser,patted dry with gauze, applied Thera honey gel and covered with Opti foam gentle dressing. Patient's R sacrum continue to display dark red non-blanchable skin with skin erosion consistent with moisture associated skin damage due to diarrhea. Patient passed small amount of soft loose stool. Cookie care given, applied Z Guard cream. Care pad changed. New photograph of wounds are taken for reference. Repositioned patient for comfort facing his Lt side, redistributed pressure points with pillows and elevated edematous extremities on pillows. Patient tolerated well. BRIAN Guerrero at bedside. RECOMMENDATION: Continuation of all wound care order prescribed by MD, continue with skin/wound plan of care, continue monitoring by wound care while patient is hospitalized. Addendum: 11/16/19 at 1501 by Mimi Vargas RN Amended: Links added.
--- NOTE | 2019-11-16 13:30 | NUR ---
PATIENT DRINKING MINIMAL AMOUNTS OF ENSURE AND REFUSING TO EAT FOOD.
--- NOTE | 2019-11-16 14:15 | NUR ---
DRESSING CHANGED TO RIGHT FEMORAL JANI CATHETER USING STERILE TECHNIQUE. DRESSING WAS SATURATED DUE TO PATIENTS WEEPING OF SEROUS FLUIDS FROM HIS TISSUES. PATIENT TOLERATED WELL. WILL CONTINUE TO MONITOR.
--- NOTE | 2019-11-16 17:41 | NUR ---
DR SHARMA AT BEDSIDE TO ASSESS PATIENT AND DISCUSS PLAN OF CARE. MD MADE AWARE OF ANTIBIOTIC SENSITIVITY CULTURES THAT ARE BACK AND PATIENT NOT EATING OR DRINKING VERY WELL. PER MD PLACE NGT.
[2019-11-16] MEDS ORDERED: Nepro With Carb Steady 1 Liter Bottle GT SCH (17:45)
--- NOTE | 2019-11-16 18:00 | NUR ---
LATE ENTRY ATTEMPTED SEVERAL TIMES TO PLACE NGT. UNABLE TO SUCCESSFULLY PLACE NGT AND PATIENT WAS ALSO SPITTING AT STAFF DURING ATTEMPTS. WILL ENDORSE TO BOUNTY HUNTER NURSE.
--- NOTE | 2019-11-16 18:20 | NUR ---
PT ASSESSED, NO SOB NOTED. PRN [place] TX NOT INDICATED.
[2019-11-16] MEDS: levoFLOXacin 250MG 50 ML IV SCH (18:44)
--- NOTE | 2019-11-16 19:19 | NUR ---
[facility] INMATE CAME FROM BEING AT [facility] FOR 2-3 WEEKS. LABS REVEALED A RISE IN THE BUN AND CREATININE. ARRIVED WITH HYPOTENSION AND DEHYDRATION. IS CURRENTLY ON LEVOPHED AND NEOSYNEPHRINE. UNABLE TO WEAN THEM AT THIS TIME. PLAN: DIALYSIS TOMORROW MORNING. HAD DIARRHEA TODAY, C DIFF LEVEL NEGATIVE. DIFFICULTY GETTING PATIENT TO DRINK ENOUGH. PLAN FOR NGT INSERTION. ATTEMPT MADE ON , HE RESISTED, YELLED AND STARTED SPITTING. PLAN IS TO TRY GETTING HIM TO DRINK AGAIN TONIGHT. MICHEL. SPEAKS. LUNGS CLEAR. 2LNP. NO DYSPNEA. O2 SATURATION STABLE. OVIDIO AREA REDNESS, SACRAL SKIN EROSION, RAC SKIN AREA THAT IS DARKENED AND RED. BOTH ARMS WEEP SEROUS FLUID. LEFT ELBOW SKIN TEAR WITH FOAM DRESSING. RIGHT MEDIAL ANKLE BLISTER BROKE AND NOW HAS A FOAM DRESSING OVER IT. LEFT HEEL FOAM DRESSING COVERING A SKIN PRESSURE REDNESS. ALL PULSES WEAK. ALL EXTREMITIES ARE WARM. 2 [facility] GUARDS IN ROOM. ANKLE SHACKLE. PICC LINE RIGHT UPPER ARM. JNAI RIGHT FEMORAL . ATRIAL FIB WITH VENTRICULAR ABERRANCIES.
--- NOTE | 2019-11-16 20:00 | NUR ---
ATTEMPTED TO HAVE HIM DRINK AND HE IMMEDIATELY SPIT IT OUT. TRIED GIVING IT TO HIM WITH A STRAW FLUID DROP, HE SPIT IT OUT. EXPLAINED TO HIM WHAT WE WERE EXPECTING FROM HIM. NOTHING WORKED. SAL[place] SUMP 16FR: ATTEMPTED AN INSERTION THROUGH THE LEFT NARE, IT KEPT COILING IN HIS MOUTH. ATTEMPTED THE SAL[place] SUMP THROUGH THE RIGHT NARE, MET BLOCKAGE IMMEDIATELY. STOPPED AFTER REPEATED COILINGS. LUNGS CLEAR. 2LNP. ABDOMEN SOFT. NO DIARRHEA. BASS DRAINING CLEAR YELLOW LIQUID TO DOWN DRAIN BAG, SMALL AMOUNT OF DARK SEDIMENT IN TUBING. ATRIAL FIB, FREQUENT VENTRICULAR ABERRANCIES.SBP BEING CONTROLLED WITH LEVOPHED AND NEOSYNEPHRINE. UNABLE TO WEAN DOWN. PICC LINE RIGHT UPPER ARM WITH A CLEAN, DRY DRESSING. JANI WITH CLEAN DRY DRESSING.
--- NOTE | 2019-11-16 22:00 | NUR ---
RIGHT ARM FOAM DRESSING REMOVED AND NEW ONE APPLIED LOWER NEAR THE WRIST FOR A TINY LEAKING/WEEPING SITE. ARM WRAPPED IN A PAD. LEFT FOAM DRESSING OVER SKIN TEAR SATURATED WITH SEROUS FLUID. DRESSING REMOVED AND SITE CLEANED. NEW FOAM DRESSING APPLIED. LEFT HEEL FOAM DRESSING REMOVED. LEFT HEEL DRESSING OFF. SITE SHOWS A NONBLANCHABLE RED AREA. RIGHT HEEL OPEN TO AIR. LEFT MEDIAL ANKLE WOUND DRAINED A MODERATE AMOUNT OF SEROUS DRNG. SITE CLEANED AND REDRESSED WITH A FOAM DRESSING. BOTH ARMS CLEANED WITH CHLORHEXADINE WIPE. HEEL OFF BED. REPOSITIONED TO BACK. PATIENT MOANED WHEN I TURNED HIM. MICHEL. LUNGS CLEAR. ATRIAL FIB WITH SEVERAL VENTRICULAR ABERRANCIES
[2019-11-17] VITALS (92 sets, daily range): BP systolic 74–141; BP diastolic 18–86
--- NOTE | 2019-11-17 | NUR ---
SAID THAT HE HAS PAIN, VERY CLEARLY. BUT THEN DID NOT ANSWER WHERE IT WAS OR THE INTENSITY. THE MAJORITY OF THE TIME HE DOES NOT ANSWER MY QUESTIONS. MICHEL. LUNGS CLEAR. NO DIARRHEA SO FAR TONIGHT. JANI SITE CLEAN AND DRY. PICC LINE DRESSING IS CLEAN AND DRY. ALL PULSES REMAIN WEAK, MOSTLY BECAUSE OF ALL THE PITTING EDEMA. EXTREMITIES ARE WARM. NO CHANGE IN WOUNDS. ATRIAL FIB WITH FREQUENT VENTRICULAR ABERRANCIES.
[2019-11-17] MEDS: ceFAZolin 1GM/50ML 50 ML IV SCH ×2 (01:09→13:39)
[2019-11-17] MEDS: MORPHINE SULF INJ 2 MG/ML SYRINGE 1ML IV PRN (01:09)
--- NOTE | 2019-11-17 01:09 | NUR ---
KEPT MOANING. WHEN I ASKED HIM IF HE HAD PAIN, HE WOULDN'T ANSWER.
--- NOTE | 2019-11-17 01:10 | NUR ---
PAIN MED GIVEN
--- NOTE | 2019-11-17 02:00 | NUR ---
VSS. PATIENT IS NO LONGER MOANING.
--- NOTE | 2019-11-17 02:00 | NUR ---
REPOSITIONED TO BACK. LEFT ARM SKIN TEAR IS WEEPING. DRESSING REMOVED. CHLORHEXADINE CLEAN WIPE TO FOREARM. NEW FOAM DRESSING APPLIED
[2019-11-17] MEDS: NOREPINEPHRINE 8 MG/250ML KIT 250 ML IV SCH (02:45)
--- NOTE | 2019-11-17 03:20 | NUR ---
AM LABS DRAWN
[2019-11-17] MEDS: PHENYLEPHRINE INJ 40 MG in SODIUM CHL 0.9% 250 ML IV SCH (04:00)
--- NOTE | 2019-11-17 04:00 | NUR ---
CHG BATH. SILICONE LOTION.
[2019-11-17 04:33] LABS: Basophils # (auto) 0 10 ^3/uL (0-0.2); Basophils % (auto) 0.1 % (0.0-2.0); Eosinophils # (auto) 0 10 ^3/uL (0-0.8); Eosinophils % (auto) 0.1 % (0.0-7.0); Hematocrit 31.2 % (41.0-53.0); Hemoglobin 10.5 g/dL (13.5-17.5); Lymphocytes # (auto) 0.6 10 ^3/uL (0.4-5.4); Lymphocytes % (auto) 3.4 % (10.0-50.0); Mean Corpuscular Hemoglobin 32.2 pg (28.0-32.0); Mean Corpuscular Hgb Conc. 33.7 g/dL (32.0-36.0); Mean Corpuscular Volume 95.6 fL (80.0-100.0); Monocytes # (auto) 0.8 10 ^3/uL (0-1.3); Monocytes % (auto) 4.7 % (0.0-12.0); Neutrophils # (auto) 14.9 10 ^3/uL (1.6-8.6); Neutrophils % (auto) 91.7 % (37.0-80.0); Platelet Count (auto) 93 10^3/uL (140-450); Red Blood Cells 3.26 10^6/uL (4.5-5.90); Red Cell Distribution Width 15.2 % (11.8-14.3); White Blood Cell 16.2 10^3/uL (4.4-10.8)
[2019-11-17 04:45] LABS: BUN/Creatinine Ratio 16.6; Calcium 7.2 mg/dL (8.5-10.1); Potassium 4.3 mmol/L (3.5-5.1)
[2019-11-17 06:59] LABS: % Iron Saturation 110.9 % (20-55)
[2019-11-17] MEDS ORDERED: SODIUM CHL 0.9% 1000 ML BAG XX ONE (07:00)
--- NOTE | 2019-11-17 07:20 | NUR ---
DIALYSIS NURSE AT BEDSIDE SETTING UP FOR TREATMENT.
--- NOTE | 2019-11-17 09:16 | NUR ---
Nutrition Consult Notes Recommended NGT feeding is Nepro with Carb Steady @ 60 ml/hr. Please refer to Nutrition Followup notes dated 11/16/19 for further details.
--- NOTE | 2019-11-17 09:57 | NUR ---
DIALYSIS NOT TOLERATED CHARGE NURSE COVERING FOR PRIMARY NURSE AND ASSISTING WITH IV PRESSOR TITRATIONS. 0957 BP 66/49. PER DIALYSIS NURSE TREATMENT STOPPED. TOTAL OF 73ML REMOVED. LAST BP 124/47. AWARE.
[2019-11-17] MEDS: SODIUM CHLOR 0.9% PF (SALINE LOCK) 10ML VIAL/SYR IV SCH ×2 (10:00→22:00)
[2019-11-17] MEDS: ALLOPURINOL 100 MG TAB PO SCH ×2 (10:00→13:39)
[2019-11-17] MEDS: ENOXAPARIN SOD 30 MG/0.3 ML SYRINGE SC SCH (10:00)
[2019-11-17] MEDS: PANTOPRAZOLE 40 MG/10 ML VIAL INJ IV SCH (10:00)
--- NOTE | 2019-11-17 10:00 | NUR ---
SKIN GAUZE REMOVED TO ASSESS SKIN. LINEAR PRESSURE AREA NOTED RIGHT INNER AND OUTER LOWER LEGS. WELL LEFT INNER AND OUTER LOWER EXTREMITY. PICTURES TAKEN. AREA REMAINED OPEN TO AIR. SOCK CUT AND PLACED TO PROTECT FLEX CUFFS FROM MAKING DIRECT CONTACT WITH SKIN. HEELS OFF LOADED. WILL CONTINUE TO REPOSITION PATIENT AT LEAST EVERY 2 HRS AND OFF LOAD CUFFS FROM SKIN. BILATERAL UPPER ARMS CONTINUE TO WEAP SEROUS FLUID. COMPLETE LINEN CHANGE DONE. OVIDIO AREA ALSO CLEANSED AND CHANGED ORDERED. Addendum: 11/17/19 at 1659 by Glenys Vance RN PATIENT NOTED TO BOBBY DURING POSITION CHANGE/ CARES. MORPHINE 2MG IVP PULLED OUT. MEDICATION WAS HELD RR NOTED TO GO LOW 8-10 SHALLOW BREATHS PER MIN. IVP MORPHINE HELD AT THIS TIME. WILL CONTINUE TO MONITOR AND ATTEMPT ALTERNATIVE PAIN MANAGEMENT MEASURES.
--- NOTE | 2019-11-17 10:00 | NUR ---
ORAL CARE REFUSED.
--- NOTE | 2019-11-17 11:00 | NUR ---
PO MEDICATIONS HELD PATIENT NOT ALLOWING ORAL CARE. EXPLAINED IMPORTANCE. PATIENT APPEARS TO BE PASSIVE. WHEN ASKED IF HE UNDERSTANDS HE NODS HEAD. PT OFFERED ORAL MOISTURIZER CREAM, AGAIN PATIENT REFUSES. UNABLE TO TEST SWALLOWING ABILITY. UNABLE TO INSERT NG. CRUSHED MEDICATION WASTED. MD TO BE NOTIFIED.
--- NOTE | 2019-11-17 12:00 | NUR ---
NUTRITION NO NG IN PLACE. PATIENT CONTINUES TO REFUSE ORAL CARE OR SIPS OF WATER. MD TO BE NOTIFIED OF NUTRITIONAL INTAKE WELL UNSUCCESSFUL INSERTION OF NG.
--- NOTE | 2019-11-17 15:00 | NUR ---
AT BEDSIDE DR. SHARMA UPDATED ON PATIENTS STATUS. MD AWARE NG WAS UNABLE TO BE PLACED NG "COILED OR MEET RESISTANCE" WHEN ATTEMPT WAS MADE BY MULTIPLE NURSES PER REPORT. NO NUTRITION VIA IV AT THIS TIME IT WILL INVOLVE FURTHER FLUIDS AND POSSIBLE FLUID OVERLOAD. MD AWARE PATIENT HAS NO MOTIVATION AND ONLY ANSWERS QUESTIONS TO HIS DESIRE. REFUSING ORAL CARE OR INVOLVEMENT IN SELF-CARE. INFORMED PO MEDS HELD. VERBALIZED UNDERSTANDING. SEE NEW ORDERS.
--- NOTE | 2019-11-17 15:30 | NUR ---
DIRECT SALES PROFESSIONAL AT BEDSIDE DR MCINTYRE UPDATED ON PATIENTS STATUS. NEW ORDERS IN PLACE.
[2019-11-17] MEDS ORDERED: BUMETANIDE 2.5mg/10ml (0.25 mg/ml) INJ IV ONE (15:45)
[2019-11-17] MEDS: NOREPINEPHRINE BITARTRATE 16 MG in SODIUM CHL 0.9% 250 ML IV SCH (16:40)
--- NOTE | 2019-11-17 17:59 | NUR ---
ORAL CARE REFUSED. PATIENT CONTINUES TO REFUSE ORAL CARE. REFUSES TO TAKE ANY SIPS OF WATER. PO MEDICATION HELD.
[2019-11-17] MEDS: MIDODRINE HCL 10 MG TAB PO SCH (18:00)
--- NOTE | 2019-11-17 19:31 | NUR ---
ADMITTED ON 11/09/2019 [address] [facility] INMATE FROM [facility]. FELL FROM HIS WHEELCHAIR THERE. OFFICIAL DIAGNOSIS RENAL FAILURE AND SEPSIS. REMAINS ON LEVOPHED AND NEOSYNEPHRINE. DIFFICULTY DURING DIALYSIS. DR MCINTYRE ORDERED EARLY TERMINATION OF DIALYSIS. PLAN FOR DIALYSIS TOMORROW. OPENS EYES. OCCASIONALLY SPEAKS, MOSTLY DOES NOT ANSWER YOUR QUESTIONS. WEAK MOVEMENT OF ARMS. PITTING EDEMA IN ARMS AND LEGS. MULTIPLE WOUNDS. WOUND CARE INVOLVED. NUTRITION: UNABLE TO GET HIM TO DRINK OR DO ORAL CARE. NO DIARRHEA TODAY. OVIDIO AREA REDNESS WITH Z GUARD APPLIED. SKIN TEARS ON SACRAL AREA. SKIN TEAR LEFT ELBOW. RIGHT AC REDNESS AND DARKENED SKIN FROM A PREVIOUS INFILTRATION. WEEPING FOREARMS. HEEL REDNESS. BROKEN BLISTER LEFT MEDIAL ANKLE/DRAINING. DTI UNDER SHACKLE AREA. ALL WOUNDS ACCORDING TO CHART HAVE BEEN PICTURED. REQUIRES US TO TURN HIM. BASS IN PLACE WITH LOW URINE OUTPUT. COLOR OF THE URINE IS PROGRESSING IN COLOR FROM COFFEE TO YELLOW. SEDIMENT IS STILL IN THE TUBING. BOTH ANKLES SHACKLED.
[2019-11-17] MEDS ORDERED: EPOETIN ALFA 10,000 UNIT/1 ML VIAL SC ONE (21:00)
--- NOTE | 2019-11-17 22:00 | NUR ---
ARM DRESSINGS DONE. WEEPING RIGHT WRIST AND LEFT SKIN TEAR. ATRIAL FIB RATE HIGHER POST DIALYSIS TODAY. UNABLE TO WEAN DOWN THE VASOPRESSORS.
[2019-11-18] VITALS (72 sets, daily range): BP systolic 61–168; BP diastolic 27–90
--- NOTE | 2019-11-18 | NUR ---
REPOSITIONED. NO BM TONIGHT. RIGHT WRIST STOPPED WEEPING. LEFT ELBOW SKIN TEAR IS WEEPING CONTINUALLY. WEAK ARM MOVEMENTS. ATRIAL FIB RATE 105-119. VENTRICULAR ABERRANCIES. LOW URINE OUTPUT.
[2019-11-18] MEDS: ceFAZolin 1GM/50ML 50 ML IV SCH ×2 (01:19→13:00)
[2019-11-18] MEDS: NOREPINEPHRINE BITARTRATE 16 MG in SODIUM CHL 0.9% 250 ML IV SCH ×2 (02:00→20:00)
--- NOTE | 2019-11-18 02:00 | NUR ---
REPOSITIONED. DRANK A SIP OF MILK. LUNGS CLEAR. ROOM AIR. NO WEEPING OF RIGHT WRIST. ABD PAD CHANGED ON LEFT ELBOW SKIN TEAR. ATRIAL FIB. SBP STABLE. UNABLE TO WEAN DOWN THE VASOPRESSORS.
--- NOTE | 2019-11-18 03:34 | NUR ---
AM LABS SENT
--- NOTE | 2019-11-18 04:00 | NUR ---
CHG BATH. LEFT ELBOW DRESSING CHANGE. LEFT MEDIAL ANKLE DRESSING CHANGE. SEROUS DRNG FROM ALL SITES. RIGHT GROIN DRESSING CHANGE. OVIDIO AREA REDNESS IS BETTER.
[2019-11-18 04:15] LABS: Basophils # (auto) 0 10 ^3/uL (0-0.2); Basophils % (auto) 0.1 % (0.0-2.0); Eosinophils # (auto) 0 10 ^3/uL (0-0.8); Hemoglobin 10.6 g/dL (13.5-17.5); Lymphocytes # (auto) 0.4 10 ^3/uL (0.4-5.4); Monocytes # (auto) 0.6 10 ^3/uL (0-1.3); Neutrophils # (auto) 7.3 10 ^3/uL (1.6-8.6); Nucleated Red Blood Cells % 0.4 %; Red Cell Distribution Width 14.8 % (11.8-14.3); White Blood Cell 8.3 10^3/uL (4.4-10.8)
[2019-11-18 04:18] LABS: Hematocrit 30.9 % (41.0-53.0); Lymphocytes % (auto) 4.5 % (10.0-50.0); Mean Corpuscular Hemoglobin 32.5 pg (28.0-32.0); Mean Corpuscular Hgb Conc. 34.4 g/dL (32.0-36.0); Mean Corpuscular Volume 94.5 fL (80.0-100.0); Monocytes % (auto) 7.5 % (0.0-12.0); Neutrophils % (auto) 87.9 % (37.0-80.0); Platelet Count (auto) 54 10^3/uL (140-450); Red Blood Cells 3.27 10^6/uL (4.5-5.90)
[2019-11-18 04:31] LABS: Calcium 7.4 mg/dL (8.5-10.1); Potassium 4.5 mmol/L (3.5-5.1)
[2019-11-18] MEDS: PHENYLEPHRINE INJ 40 MG in SODIUM CHL 0.9% 250 ML IV SCH ×2 (06:00→08:11)
[2019-11-18] MEDS: MIDODRINE HCL 10 MG TAB PO SCH ×4 (06:00→18:00)
--- NOTE | 2019-11-18 06:00 | NUR ---
REPOSITIONED TO BACK. ATRIAL FIB. VENTRICULAR ABERRANCIES CONTINUE.
[2019-11-18] MEDS ORDERED: SODIUM CHL 0.9% 1000 ML BAG XX ONE (07:00)
--- NOTE | 2019-11-18 08:30 | NUR ---
ASSESSMENT PATIENT RESPONSIVE TO VOICE. ANSWERING SIMPLE QUESTIONS BUT LIMITED TO PATIENTS DESIRE. PATIENT VERBALIZING NAME/ / YEAR. STATING MILD PAIN TO LEFT KNEE ONLY WITH TOUCH OR POSITION CHANGE. NEURO STATUS/RESPONSE IMPROVED FROM 11/16 SHIFT PATIENT WAS VERY PASSIVE. REQUESTING A SIP OF WATER. SIP OF WATER GIVEN WITH MEDICINE CUP. NO COUGHING NOTED BUT DELAYED SWALLOWING NOTED. STRICT ASPIRATION PRECAUTIONS IN PLACE. OFFERED PATIENT MILK NOC SHIFT NURSE STATING PATIENT REQUEST. PT DENIED. GUARDS AT BEDSIDE FOR SAFETY.
--- NOTE | 2019-11-18 08:35 | NUR ---
Cooling Measures applied. Patient currently has temp of 99.4 , cooling measures in place.
[2019-11-18] MEDS: ENOXAPARIN SOD 30 MG/0.3 ML SYRINGE SC SCH (10:00)
[2019-11-18] MEDS: ALLOPURINOL 100 MG TAB PO SCH ×2 (10:00→17:20)
--- NOTE | 2019-11-18 10:00 | NUR ---
MEDICATIONS HELD UNTIL DIALYSIS COMPLETED.
--- NOTE | 2019-11-18 10:57 | NUR ---
Dressing change done 11/17 by meg conklin. Dressing CDI. Addendum: 11/18/19 at 1058 by Glenys Vance RN Amended: Links added.
--- NOTE | 2019-11-18 11:00 | NUR ---
MEDIATION HELD LOVENOX HELD. PATIENT PLT COUNT AT 54. NO S/S OF BLEEDING. WILL CONTINUE TO MONITOR. MD TO BE NOTIFIED.
--- NOTE | 2019-11-18 12:20 | NUR ---
DIALYSIS NURSE AT BEDSIDE.
--- NOTE | 2019-11-18 12:30 | NUR ---
POSITION CHANGE HELD DURING DIALYSIS. WILL FOLLOW UP ONCE PATIENTS TX COMPLETED AND STABLE.
--- NOTE | 2019-11-18 12:46 | NUR ---
PO MIDODRINE ADMINISTERED MEDICATION CRUSHED AND ADDED TO APPLESAUCE. ENCOURAGMENT AND REASSURANCE NEEDED IN ORDER FOR PATIENT TO OPEN MOUTH. PT TOLERATED WELL JUST SLOW TO SWALLOW. NO COUGHING NOTED.
--- NOTE | 2019-11-18 14:00 | NUR ---
POSITION CHANGE HELD DURING DIALYSIS. PATIENT BP LIABLE. WILL FOLLOW UP ONCE PATIENTS TX COMPLETED AND STABLE.
[2019-11-18] MEDS ORDERED: ALBUMIN 25% 100 ML IV ONE ×2 (15:05→15:15)
[2019-11-18] MEDS ORDERED: METOPROLOL TARTRATE 1MG/1ML-5ML VIAL IV ONE ×2 (15:05)
--- NOTE | 2019-11-18 15:05 | NUR ---
DIALYSIS/ TACKYCARDIA PATIENTS HR NOTED 140-160'S BP LABILE. DIALYSIS NURSE AT BEDSIDE MAKING ADJUSTMENTS PER MD. SAP ABAP DEVELOPER AT BEDSIDE. NEW ORDERS IN PLACE FOR LOPRESSOR IVP AND MAX ON NEOSYNEPHRINE. SEE IV SPREADSHEET/ V/S.
--- NOTE | 2019-11-18 15:15 | NUR ---
DIALYSIS COMPLETE 1.8 LITERS REMOVED. LAST BP 122/71.
[2019-11-18] MEDS: SODIUM CHLOR 0.9% PF (SALINE LOCK) 10ML VIAL/SYR IV SCH ×2 (15:22→22:00)
--- NOTE | 2019-11-18 15:31 | NUR ---
PER DIALYSIS NURSE NO FURTHER FLUIDS PULLED. HR AFIB 114 BP 9/57 RR 15.
[2019-11-18] MEDS: levoFLOXacin 250MG 50 ML IV SCH (17:20)
[2019-11-18] MEDS: PANTOPRAZOLE 40 MG/10 ML VIAL INJ IV SCH (17:20)
--- NOTE | 2019-11-18 17:20 | NUR ---
PO MEDICATIONS REFUSED PATIENT REFUSED TO TAKE PO MEDS. MD NOTIFIED PT HAS BEEN REFUSING ORAL AND PO INTAKE. ORAL MUCOUS MEMBRANES, BROWN/ DRY EVEN AFTER ENCOURAGEMENT AND EDUCATION ON IMPORTANCE.
--- NOTE | 2019-11-18 17:21 | NUR ---
UPDATED ON PATIENTS STATUS SEE NEW ORDERS. AWARE LOVENOX WAS HELD FOR LOW PLT. Addendum: 11/18/19 at 1744 by Glenys Vance RN DISCUSSED WITH THAT INTERIOR PLANT CARETAKER IS RECOMMENDING HR CONTROL PRN PATIENT WAS 140-160'S DURING DIALYSIS. NO NEW ORDERS AT THIS TIME/ SEE NOTES.
--- NOTE | 2019-11-18 18:44 | NUR ---
FOOTBALL PAD REPAIRER PAGED DR. MCINTYRE REQUESTED TO CLARIFY MEDICATION ORDER WITH HOSPITALIST. NO NEW ORDERS. PAGED TO NOTIFY DIALYSIS IS PENDING FOR A.M. AWAITING CALLBACK.
--- NOTE | 2019-11-18 18:52 | NUR ---
HEALTH CARE MARKETING SPECIALIST CALLED BACK DR. MCINTYRE ADDED VASOPRESSIN TO MAINTAIN BP DURING DIALYSIS PRN. IF ADDITIONAL MEDICATIONS NEEDED SUCH PRN FOR TACKYCARDIA, DIALYSIS NURSE AND/FRONT END SPECIALIST TO CONTACT .
[2019-11-18] MEDS: VASOPRESSIN 50 UNITS in D5W 5% 247.5 ML IV SCH (19:00)
--- NOTE | 2019-11-18 20:00 | NUR ---
[facility]CC INMATE REMAINS HERE IN THE ICU DUE TO INABILITY TO WEAN HIM OFF THE LEVOPHED AND NEOSYNEPHRINE. PLAN: DIALYSIS TOMORROW. ORIENTED TO SELF AND YEAR. WEAK MOVEMENTS OF ARMS. LEFT KNEE XRAY DONE. PATIENT EXPERIENCES A LOT OF PAIN WHEN YOU MOVE HIS LEFT LEG. PICC LINE DRESSING IS CLEAN AND DRY.ATRIAL FIB WITH VENTRICULAR ABERRANCIES. HR RANGE IS 100 TO 109. REFUSING WATER OR FOOD. ORAL CARE DONE. FEW SMALL SCABS ON LIPS. MOISTURIZER APPLIED. MICHEL. SPEECH CLEAR. ABDOMEN SOFT. 2+ PITTING EDEMA IN ARMS AND LEGS. WEEPING FROM A FEW PINPOINT AREAS ON THE RIGHT ARM AND A SKIN TEAR ON THE LEFT ARM. BOTH LEGS SHACKLED. OVIDIO AREA REDNESS IS STILL PRESENT BUT BETTER.LOW URINE OUTPUT. SEDIMENT IN URINE. NO MAINTENANCE FLUID. BOTH THE LEVOPHED AND NEOSYNEPHRINE ARE DOUBLE STRENGTH. BOTH FOREARMS CLEANED WITH A CHG WIPE AND NEW PAD PLACED UNDER THEM TO CATCH THE WEEPING WOUNDS.
--- NOTE | 2019-11-18 22:00 | NUR ---
REPOSITIONED. CHANGED PAD ON LEFT ARM. LEFT ARM SKIN TEAR CONTINUOUSLY OOZES SEROUS FLUID IN LARGE AMOUNTS.ATRIAL FIB. IV SITE SHOWS NO REDNESS OR SWELLING.
[2019-11-19] VITALS (102 sets, daily range): BP systolic 63–139; BP diastolic 37–82
--- NOTE | 2019-11-19 | NUR ---
REPOSITIONED. PAD CHANGED ON LEFT ARM. ONE FULL ABD PAD SOAKED WITH SEROUS FLUID.. VSS . NO CHANGE IN LEVOPHED OR NEOSYNEPHRINE.
[2019-11-19] MEDS: ceFAZolin 1GM/50ML 50 ML IV SCH ×2 (00:39→13:00)
--- NOTE | 2019-11-19 03:30 | NUR ---
TEMP 100.8. CHG BATH GIVEN. LOTION TO SKIN. NEW OPTIFOAM TO SACRAL AREA. FEW SKIN TEARS NEAR THE ANUS. TINY AMOUNT OF BLEEDING. PARTIAL LINEN CHANGE. DRINKING COFFEE. 2 ICE BAGS TO AXILLA WHEN THE TYLENOL DID NOT WORK.
--- NOTE | 2019-11-19 03:31 | NUR ---
PREVIOUS NOTE ON WRONG CHART.
--- NOTE | 2019-11-19 04:30 | NUR ---
CHG BATH. PARTIAL LINEN CHANGE. ABDS TO SITES THAT OOZE CONTINUALLY. PAD SURROUNDS THE ARMS. REPOSITIONED TO RIGHT SIDE.
--- NOTE | 2019-11-19 05:30 | NUR ---
RIGHT GROIN JANI SITE IS CONTINUALLY OOZING SEROUS FLUID. OLD DRESSING REMOVED , SITE CLEANED. NEW BIODISK APPLIED AND CLEAR DRESSING.
[2019-11-19] MEDS: PHENYLEPHRINE INJ 40 MG in SODIUM CHL 0.9% 250 ML IV SCH (06:00)
[2019-11-19] MEDS: NOREPINEPHRINE BITARTRATE 16 MG in SODIUM CHL 0.9% 250 ML IV SCH ×2 (06:00→19:45)
[2019-11-19] MEDS: MIDODRINE HCL 10 MG TAB PO SCH ×3 (06:00→18:00)
--- NOTE | 2019-11-19 06:27 | NUR ---
AM LABS SENT
[2019-11-19 06:28] LABS: Basophils # (auto) 0 10 ^3/uL (0-0.2); Eosinophils # (auto) 0 10 ^3/uL (0-0.8); Eosinophils % (auto) 0.1 % (0.0-7.0); Hemoglobin 10.1 g/dL (13.5-17.5); Lymphocytes # (auto) 0.4 10 ^3/uL (0.4-5.4); Monocytes # (auto) 0.6 10 ^3/uL (0-1.3); Platelet Count (auto) 32 10^3/uL (140-450)
[2019-11-19 06:31] LABS: Basophils % (auto) 0.1 % (0.0-2.0); Hematocrit 29.4 % (41.0-53.0); Lymphocytes % (auto) 7.1 % (10.0-50.0); Mean Corpuscular Hemoglobin 32.8 pg (28.0-32.0); Mean Corpuscular Hgb Conc. 34.5 g/dL (32.0-36.0); Mean Corpuscular Volume 95.1 fL (80.0-100.0); Monocytes % (auto) 9.2 % (0.0-12.0); Neutrophils # (auto) 5.2 10 ^3/uL (1.6-8.6); Neutrophils % (auto) 83.5 % (37.0-80.0); Nucleated Red Blood Cells % 0.1 %; Red Blood Cells 3.09 10^6/uL (4.5-5.90); Red Cell Distribution Width 14.7 % (11.8-14.3); White Blood Cell 6.2 10^3/uL (4.4-10.8)
[2019-11-19 06:50] LABS: Calcium 7.9 mg/dL (8.5-10.1); Potassium 4.4 mmol/L (3.5-5.1)
[2019-11-19] MEDS ORDERED: SODIUM CHL 0.9% 1000 ML BAG XX ONE (07:00)
--- NOTE | 2019-11-19 07:45 | NUR ---
DIALYSIS STARTED, PATIENT WILL BE RECEIVING A LONG DIALYSIS TODAY.
[2019-11-19] MEDS: ALLOPURINOL 100 MG TAB PO SCH (10:00)
[2019-11-19] MEDS: SODIUM CHLOR 0.9% PF (SALINE LOCK) 10ML VIAL/SYR IV SCH ×2 (10:00→22:00)
[2019-11-19] MEDS: ENOXAPARIN SOD 30 MG/0.3 ML SYRINGE SC SCH (10:00)
--- NOTE | 2019-11-19 10:00 | NUR ---
PATIENT CURRENTLY ON DIALYSIS. NOT TURNED AT THIS TIME.
--- NOTE | 2019-11-19 13:34 | NUR ---
DR. MCINTYRE HERE TO SEE PATIENT. SEE MD NOTES AND EMR FOR ANY NEW ORDERS.
--- NOTE | 2019-11-19 13:34 | NUR ---
DIALYSIS STOPPED, 3 LITERS REMOVED.
[2019-11-19] MEDS: PANTOPRAZOLE 40 MG/10 ML VIAL INJ IV SCH (13:42)
[2019-11-19 15:54] LABS: BUN/Creatinine Ratio 16.2; Calcium 7.8 mg/dL (8.5-10.1); Potassium 4.3 mmol/L (3.5-5.1)
[2019-11-19] MEDS: VASOPRESSIN 50 UNITS in D5W 5% 247.5 ML IV SCH (19:00)
--- NOTE | 2019-11-19 19:57 | NUR ---
[facility] INMATE FROM [facility] HERE WITH A RECENT INCREASE IN BUN AND CREATININE. HYPOTENSION: LEVOPHED MAX DOSE. WEANED OFF NEOSYNEPHRINE AT 1840 TODAY. SBP DROPPING SLOWLY. LUNGS CLEAR. 4LNP. ABDOMEN SOFT. JANI RIGHT GROIN IS CONTINUOUSLY OOZING SEROUS, WATERY FLUID. BASS IN PLACE , LOW URINE OUTPUT. DIALYSIS TODAY. REMOVED 3.5 LITERS. PITTING EDEMA IN ARMS AND LEGS. BOTH ANKLES SHACKLED. BOTH ARMS ARE WEEPING SEROUS FLUID. RAC THERE IS A LARGE AREA THAT IS RED AND DARKENED. AREA IS CLOSED AND OPEN TO AIR. LEFT MEDIAL ANKLE HAS A BROKEN BLISTER THAT IS DRAINING SEROUS FLUID. SACRAL AREA IS RED. LOOSE STOOL TODAY AND MULTIPLE STOOLS 3 DAYS AGO. PICC SHER WITH LEVOPHED RUNNING. NO MAINTENANCE FLUID. NO NUTRITION. REFUSES TO EAT. REFUSES ORAL CARE. PREVIOUS ATTEMPTS AT PLACING AN NGT: KEPT CURLING IN THE BACK OF HIS MOUTH. NUTRITION DISCUSSED WITH MD ZACHARY. DTI ON LOWER LEGS. ALL WOUNDS ARE PICTURED AND IN CHART.
--- NOTE | 2019-11-19 22:00 | NUR ---
REPOSITIONED. VERY LITTLE WEEPING FROM THE ARMS RIGHT NOW. RIGHT GROIN IS WEEPING CONTINUOUSLY. REMAINS IN ATRIAL FIB WITH A HIGHER RATE TODAY POST DIALYSIS. 2 GUARDS IN ROOM. BOTH ANKLES SHACKLED. URINE IS A TEA COLOR WITH SEDIMENT. MOANS WHEN WE TURN HIM. LEFT LEG IS ESPECIALLY TENDER.
[2019-11-20] VITALS (90 sets, daily range): BP systolic 86–125; BP diastolic 41–92
--- NOTE | 2019-11-20 | NUR ---
DOING WELL. VSS. UNABLE TO WEAN DOWN THE LEVOPHED DRIP. LUNGS CLEAR. LOW URINE OUTPUT. 2+ PITTING EDEMA IN BOTH ARMS AND LEGS. PICC LINE DRESSING IS CURRENT. NO REDNESS OR DRNG FROM THE PICC LINE SITE. JANI SITE IS WEEPING. SACRAL AREA IS BLEEDING. CLEANED AND FOAM DRESSING APPLIED. LUNGS CLEAR. 2LNP.
[2019-11-20] MEDS: ceFAZolin 1GM/50ML 50 ML IV SCH ×2 (00:52→13:51)
--- NOTE | 2019-11-20 02:00 | NUR ---
ATRIAL FIB RATE 108-130. OCCASIONAL VENTRICULAR ABERRANCIES. CHG BATH. NEW OPTIFOAM TO COCCYX. FEW SITES ARE BLEEDING. NO BM YET. LOW URINE OUTPUT.
--- NOTE | 2019-11-20 04:00 | NUR ---
FINISHED UP WITH DRESSINGS AND BATH. COMPLETE LINEN CHANGE. DTI ON RIGHT CALF, ONE IS TURNING INTO A LARGE DARK BLISTER. ABD OVER IT. HEELS ARE PINK/RED AND BLANCHABLE. GROIN IS LESS PINK OVER THE PAST FEW DAYS. REMAINS IN ATRIAL FIB RATE 120-132. NO NEW CHANGES .
[2019-11-20] MEDS: MIDODRINE HCL 10 MG TAB PO SCH ×3 (06:00→17:36)
[2019-11-20 06:42] LABS: Calcium 8.1 mg/dL (8.5-10.1); Potassium 4.6 mmol/L (3.5-5.1)
[2019-11-20 06:44] LABS: BUN/Creatinine Ratio 19.4
--- NOTE | 2019-11-20 06:49 | NUR ---
RESTLESS. TRYING TO PULL MITTENS OFF.
--- NOTE | 2019-11-20 09:21 | NUR ---
DR. SHARMA HERE TO SEE PATIENT. REMINDED MD THAT PATIENT IS REFUSING TO EAT AND REFUSING TO TAKE ANY ORAL MEDICATIONS. DR. SHARMA SPOKE WITH DR. MCINTYRE AND BOTH MD'S DECIDED TO HAVE NGT PLACED.
[2019-11-20] MEDS ORDERED: METOPROLOL TARTRATE 1MG/1ML-5ML VIAL IV ONE (09:30)
--- NOTE | 2019-11-20 09:45 | NUR ---
ATTEMPTED TO PLACE NGT INTO PATIENTS LEFT AND RIGHT NARE. THIS RN WAS UNSUCCESSFUL IN PLACING NGT. TUBE CONTINUOUSLY CURLED INTO PATIENTS MOUTH. MD MCINTYRE AND ZACHARY SILVESTRE.
--- NOTE | 2019-11-20 09:47 | NUR ---
DR. MCINTYRE HER TO SEE PATIENT. MD WAS MADE AWARE THAT PATIENT IS REFUSING ALL MEALS AND ORAL MEDICATIONS. DR. MCINTYRE SPOKE TO DR. SHARMA.
[2019-11-20] MEDS: ENOXAPARIN SOD 30 MG/0.3 ML SYRINGE SC SCH (10:00)
[2019-11-20] MEDS ORDERED: METOPROLOL TARTRATE 25 MG TAB PO SCH (10:00)
[2019-11-20] MEDS: ALLOPURINOL 100 MG TAB PO SCH (10:00)
[2019-11-20] MEDS: PHENYLEPHRINE INJ 40 MG in SODIUM CHL 0.9% 250 ML IV SCH (10:11)
[2019-11-20] MEDS: SODIUM CHLOR 0.9% PF (SALINE LOCK) 10ML VIAL/SYR IV SCH ×2 (10:22→21:59)
[2019-11-20] MEDS: PANTOPRAZOLE 40 MG/10 ML VIAL INJ IV SCH (10:22)
--- NOTE | 2019-11-20 11:36 | NUR ---
Nutrition Follow up Notes Wt.: 100.4 kg pt sleeping with guards by bedside. pt refusing to eat per RN doc. pt had HD 11/18. pt is curently on renal specific 60 gm protein 2 gm na diet with poor PO of 0% x 4 per RN doc Est [employer] needs 9309-7631 kcal (25-30 kcal/kg IBW 87.7) Est protein needs 122-150(1.2-1.5g/kg BW, CHANEL/CKD III with dialysis) Will reassess prn. Labs: BUN 72 H, CREAT 3.72 H, CA 8.1 L. Skin: BS 12, high risk, pt with multiple wounds. Please refer to wound assessment report for full details. GI: Pt had 1 BM 11/18 per ride attendant, PES: Altered nutrition related lab values r/t current medical condition aeb elev RFTs PES Altered: Overweight r/t excessive PO intake aeb 117% of IBW and BMI of 28.2 which is overweight Will continue to monitor PO intake, skin status, pertinent labs and weight trend. F/u in 3-5 days. Rec.: 1.) If TF initiated consider Nepro Carb Steady at 60 ml/hr per MD approval, with the addition of 1 prostat 2) consider renal std diet as pt on HD 3) consider nephrovite and Vit C bid. 4) continue current plan of care
[2019-11-20] MEDS: METOPROLOL TARTRATE 1MG/1ML-5ML VIAL IV SCH ×2 (12:00→17:36)
[2019-11-20] MEDS: levoFLOXacin 250MG 50 ML IV SCH (17:36)
[2019-11-20] MEDS: VASOPRESSIN 50 UNITS in D5W 5% 247.5 ML IV SCH (19:00)
[2019-11-21] VITALS (81 sets, daily range): BP systolic 59–163; BP diastolic 20–116
[2019-11-21] MEDS: ceFAZolin 1GM/50ML 50 ML IV SCH ×2 (00:34→13:35)
[2019-11-21] MEDS: PHENYLEPHRINE INJ 40 MG in SODIUM CHL 0.9% 250 ML IV SCH ×3 (02:51→14:10)
--- NOTE | 2019-11-21 04:00 | NUR ---
TRIED TO INSERT NGT BUT IT COILED IN THE THROAT.
[2019-11-21] MEDS: NOREPINEPHRINE BITARTRATE 16 MG in SODIUM CHL 0.9% 250 ML IV SCH ×2 (04:19→16:02)
--- NOTE | 2019-11-21 06:00 | NUR ---
LEVOPHED LEVOPHED DRIP TITRATED DOWN TO KEEP SBP ABOVE 90.
[2019-11-21] MEDS: METOPROLOL TARTRATE 1MG/1ML-5ML VIAL IV SCH ×2 (06:30)
[2019-11-21] MEDS: MIDODRINE HCL 10 MG TAB PO SCH ×3 (06:30→17:17)
[2019-11-21 06:49] LABS: BUN/Creatinine Ratio 21.5; Calcium 8.1 mg/dL (8.5-10.1); Potassium 4.5 mmol/L (3.5-5.1)
[2019-11-21] MEDS ORDERED: SODIUM CHL 0.9% 1000 ML BAG XX ONE (07:00)
[2019-11-21 07:13] LABS: % Iron Saturation 104.4 % (20-55)
--- NOTE | 2019-11-21 07:40 | NUR ---
PARTIAL ASSESSMENT DONE. PT LAYING IN BED RECEIVING HD, HD RN AT BEDSIDE PERFORMING HD. PT TACHYCARDIC, TACHYPNEIC, JAUNDICE, SLEEPY, SLIGHTLY HYPOTENSIVE ON LEVOPHED GTT AT 14 MCG/MIN FOR BP SUPPORT , ANASARCA AND BRUISED ON UPPER & LOWER EXTREMITIES . PT HAS TWO GUARDS AT BED. ALL ALARMS REVIEWED. INTRODUCED MY SELF TO HD RN AND OFFERED TO ADD ADDITIONAL VASOPRESSORS TO ASSIST WITH HD FLUID REMOVAL ORDERED BY MD. COMPLETE ASSESSMENT WILL BE DONE ONCE HD IS COMPLETED.
--- NOTE | 2019-11-21 08:44 | NUR ---
ADDED NEOSYNEPHRINE FOR HYPOTENSION PT WAS VERY TACHYCARDIC HR INCREASED FROM THE 120'S TO 150'S ON LEVOPHED AT 24 MCG/MIN. INSTEAD OF TITRATING LEVOPHED ANY FURTHER I ADDED NEOSYNEPHRYNE TO IMPROVE BP WITHOUT AFFECTING HR MUCH.
--- NOTE | 2019-11-21 09:45 | NUR ---
HD STOPPED PT WAS TACHYCARDIC HR INCREASED ALL THE WAY TO THE 160'S PT DIDN'T HAVE MUCH MORE INTRAVASCULAR FLUID TO BE REMOVED. ALL FLUID IS IN THE EXTRAVASCULAR SPACE, PT IS 3RD SPACING WHIPPING OUT SEROUS FLUID FROM UPPER & LOWER EXTREMITIES. HE REMOVED 1700 ML OF FLUID DURING HD.
[2019-11-21] MEDS: ALLOPURINOL 100 MG TAB PO SCH (10:00)
[2019-11-21] MEDS: SODIUM CHLOR 0.9% PF (SALINE LOCK) 10ML VIAL/SYR IV SCH ×2 (11:05→22:04)
[2019-11-21] MEDS: ENOXAPARIN SOD 30 MG/0.3 ML SYRINGE SC SCH (11:05)
[2019-11-21] MEDS: PANTOPRAZOLE 40 MG/10 ML VIAL INJ IV SCH (11:05)
--- NOTE | 2019-11-21 11:33 | NUR ---
SPOKE TO PT REGARDING NGT INSERTION PT WANTS TO BE LEFT ALONE. STATES " WHY DO YOU ALL WANT TO HURT ME". " PT REFUSED TO BE REPOSITIONED AT THIS TIME". I TOLD PT THAT NEST TIME IS HE IS SLEEPING HE WILL BE REPOSITION WITHOUT BEING ASKED ,THAT WE ARE TRYING TO PROTECT HIS SKIN FROM FURTHER SKIN BREAK DOWN.
[2019-11-21] MEDS: ALBUMIN 25% 100 ML IV SCH (17:34)
--- NOTE | 2019-11-21 18:00 | NUR ---
URINE COLLECTED SAMPLE COLLECTED AND SENT TO LAB FOR CULTURE ORDERED BY ANESTHETIST. PT ALSO STARTED ON ALBUMIN FOR BP SUPPORT.
[2019-11-21 18:22] LABS: BUN/Creatinine Ratio 19.7; Calcium 7.2 mg/dL (8.5-10.1); Potassium 3.9 mmol/L (3.5-5.1)
[2019-11-21] MEDS: VASOPRESSIN 50 UNITS in D5W 5% 247.5 ML IV SCH (19:00)
--- NOTE | 2019-11-21 20:00 | NUR ---
AT BEDSIDE. INFORMED HIM THAT WE ARE UNABLE TO INSERT NGT AND PATIENT UNABLE TO EAT OR DRINK. MD SAID HE WILL CALL FOR A GI CONSULT.
[2019-11-21] MEDS: MORPHINE SULF INJ 2 MG/ML SYRINGE 1ML IV PRN (20:17)
[2019-11-21] MEDS ORDERED: EPOETIN ALFA 10,000 UNIT/1 ML VIAL SC ONE (21:00)
--- NOTE | 2019-11-21 21:00 | NUR ---
Patient bathe/linen change/Dressing change Patient given complete bath with chlorhexidine wipes. Skin integrity assessed for any changes. Linens changed. Patient repositioned for comfort. wound pictures taken and dressing change as ordered.
[2019-11-22] VITALS (106 sets, daily range): BP systolic 81–157; BP diastolic 26–123
[2019-11-22] MEDS: ceFAZolin 1GM/50ML 50 ML IV SCH ×2 (00:42→13:50)
[2019-11-22] MEDS: ALBUMIN 25% 100 ML IV SCH ×3 (00:43→16:27)
[2019-11-22] MEDS: METOPROLOL TARTRATE 1MG/1ML-5ML VIAL IV SCH ×5 (00:46→23:47)
[2019-11-22] MEDS ORDERED: FUROSEMIDE 100 MG/10ML VIAL IV SCH (02:30)
[2019-11-22] MEDS: MIDODRINE HCL 10 MG TAB PO SCH ×3 (06:00→17:37)
--- NOTE | 2019-11-22 06:00 | NUR ---
DIALYSIS NURSE AT BEDSIDE.
[2019-11-22 06:22] LABS: Basophils # (auto) 0 10 ^3/uL (0-0.2); Eosinophils # (auto) 0 10 ^3/uL (0-0.8); Hemoglobin 8.1 g/dL (13.5-17.5); Lymphocytes # (auto) 0.4 10 ^3/uL (0.4-5.4); Monocytes # (auto) 0.3 10 ^3/uL (0-1.3); Nucleated Red Blood Cells % 0.3 %; White Blood Cell 3.8 10^3/uL (4.4-10.8)
[2019-11-22 06:24] LABS: Eosinophils % (auto) 0.1 % (0.0-7.0); Hematocrit 23.5 % (41.0-53.0); Lymphocytes % (auto) 9.4 % (10.0-50.0); Mean Corpuscular Hemoglobin 32.6 pg (28.0-32.0); Mean Corpuscular Hgb Conc. 34.5 g/dL (32.0-36.0); Mean Corpuscular Volume 94.4 fL (80.0-100.0); Neutrophils # (auto) 3.1 10 ^3/uL (1.6-8.6); Neutrophils % (auto) 82.5 % (37.0-80.0); Red Blood Cells 2.49 10^6/uL (4.5-5.90); Red Cell Distribution Width 14.8 % (11.8-14.3)
[2019-11-22 06:30] LABS: Platelet Count (auto) 11 10^3/uL (140-450)
[2019-11-22 06:42] LABS: BUN/Creatinine Ratio 20.9; Calcium 8.2 mg/dL (8.5-10.1); Potassium 3.9 mmol/L (3.5-5.1)
[2019-11-22] MEDS ORDERED: SODIUM CHL 0.9% 1000 ML BAG XX ONE (07:00)
--- NOTE | 2019-11-22 07:15 | NUR ---
REPORT IS GIVEN TO CLEMENTINA RN AND ENDORSED TO INFORM CRITICAL PLATELET LEVEL TO PRIMARY MD.
--- NOTE | 2019-11-22 07:45 | NUR ---
Opening Shift Note Assumed care of patient, awake and alert, still weak, mouth care provided. No S/S of distress/SOB, on O2 NC 2 LPM. Instructed on POC and, will continue to monitor for changes Q1hr and PRN. Dialysis nurse at the bedside, will continue to monitor BP, adjust Levophed to increase BP during HD.
--- NOTE | 2019-11-22 08:34 | NUR ---
Dr. Grace at the bedside, seen and examined patient at this time, MD already seen the lab result from this morning, plan to repeat CBC again.
--- NOTE | 2019-11-22 09:00 | NUR ---
IOnsrinivas Grace about CBC result, received order for transfusion 2 units of platelet. signed for the consent at this time. Addendum: 11/22/19 at 0950 by DARNELL DOUGLASS RN RN At 9.30 am
--- NOTE | 2019-11-22 09:03 | NUR ---
Sent CBC to Lab.
[2019-11-22 09:12] LABS: Basophils # (auto) 0 10 ^3/uL (0-0.2); Eosinophils # (auto) 0 10 ^3/uL (0-0.8); Eosinophils % (auto) 0.4 % (0.0-7.0); Lymphocytes # (auto) 0.4 10 ^3/uL (0.4-5.4); Monocytes # (auto) 0.3 10 ^3/uL (0-1.3)
[2019-11-22 09:14] LABS: Basophils % (auto) 0.1 % (0.0-2.0); Hematocrit 25.2 % (41.0-53.0); Hemoglobin 8.7 g/dL (13.5-17.5); Lymphocytes % (auto) 8.8 % (10.0-50.0); Mean Corpuscular Hemoglobin 32.4 pg (28.0-32.0); Mean Corpuscular Hgb Conc. 34.5 g/dL (32.0-36.0); Mean Corpuscular Volume 93.9 fL (80.0-100.0); Monocytes % (auto) 6.9 % (0.0-12.0); Neutrophils # (auto) 3.4 10 ^3/uL (1.6-8.6); Neutrophils % (auto) 83.8 % (37.0-80.0); Nucleated Red Blood Cells % 0.6 %; Red Blood Cells 2.68 10^6/uL (4.5-5.90); Red Cell Distribution Width 14.6 % (11.8-14.3)
[2019-11-22 09:25] LABS: Platelet Count (auto) 9 10^3/uL (140-450)
--- NOTE | 2019-11-22 09:45 | NUR ---
Received a call from GI doctor, plan to do EGD with NG placement under sedation, called GI lab for schedule plan to do around 3 pm today.
--- NOTE | 2019-11-22 09:50 | NUR ---
Dialysis done, removed total 1700 ml.
[2019-11-22] MEDS: ALLOPURINOL 100 MG TAB PO SCH (09:56)
[2019-11-22] MEDS: PANTOPRAZOLE 40 MG/10 ML VIAL INJ IV SCH (10:01)
[2019-11-22] MEDS: SODIUM CHLOR 0.9% PF (SALINE LOCK) 10ML VIAL/SYR IV SCH ×2 (10:01→22:09)
[2019-11-22] MEDS ORDERED: NOREPINEPHRINE 8 MG/250ML KIT 0 ML IV ONE (10:39)
[2019-11-22] MEDS ORDERED: diphenhdrAMINE HCL 50 MG/1 ML VL ONE (10:54)
[2019-11-22] MEDS ORDERED: LIDOCAINE VISCOUS 2% 15ML UD ONE (10:54)
[2019-11-22] MEDS ORDERED: SODIUM CHLORIDE LOCK 10 ML ONE (10:55)
[2019-11-22 11:16] LABS: INR 5.69 (0.9-1.15)
[2019-11-22] MEDS: MORPHINE SULF INJ 2 MG/ML SYRINGE 1ML IV PRN (11:19)
[2019-11-22] MEDS: NOREPINEPHRINE BITARTRATE 16 MG in SODIUM CHL 0.9% 250 ML IV SCH (11:23)
--- NOTE | 2019-11-22 11:35 | NUR ---
Morphine given before changing position. Will continue to monitor and care.
--- NOTE | 2019-11-22 13:05 | NUR ---
GI lab at the bedside.
--- NOTE | 2019-11-22 13:09 | NUR ---
Pageamanda Ayala and Dr. Posey.
--- NOTE | 2019-11-22 13:10 | NUR ---
Dr. Posey at the unit, signed the consent for EGD with NG tube placement and sedation, okay for Dr. Ayala will sign consent too.
[2019-11-22] MEDS: MIDAZOLAM HCL 5 MG/ML-1ML VIAL ONE ×2 (13:56→14:04)
[2019-11-22] MEDS: fentaNYL CITRATE 100 MCG/2 ML VL ONE ×3 (13:56→14:04)
[2019-11-22] MEDS ORDERED: phytonadione 10 MG in SODIUM CHL 0.9% 50 ML IV ONE (14:30)
--- NOTE | 2019-11-22 14:30 | NUR ---
Dr. Ayala at the bedside for Procedure. NG tube placement, #80 cms at left NARES, received orders for X ray, start Protonix iv drip, and transfuse FFP 2 units due to INR 5.69, plan repeat PT/INR 1 hour after FFP 2 units given (keep INR<2)
--- NOTE | 2019-11-22 14:40 | NUR ---
Wound care nurse at the bedside.
--- NOTE | 2019-11-22 14:45 | NUR ---
WOUND CARE NOTE: New wound care request received regarding new skin integrity issue noted by bedside nurse upon assessment. Bedside nurse took photograph of patient's multiple skin issue for reference. Patient continue resting in ICU bed in Rm. 110. Patient's eyes are closed, moan in every touch. BRIAN Riosa at bedside and reported that is patient's baseline. Patient is max assist in turning and repositioning and his Jose score is 11. Patient's INR is high 5.60 and he's receiving Frozen plasma at this time per MD order. Skin/wound assessment done with the help of patient's nurse, BRIAN Black. Patient's bilateral arm continue to display with weeping edema and erythema with multi scabs and ecchymosis. His R elbow is red and blanchable. His L elbow continue to display 0.5x0.5cm puncture wound. Wound is red, draining minimal amount of serous drainage, no odor noted. His Lt upper arm skin tear over edematous and ecchymotic skin is draining moderate amount of serosanguineous drainage. Patient has generalized edema. He developed multiple ecchymosis and blistering to bilateral lower legs and Rt foot toes in spite of offloading extremities on pillows and applying gauze roll wrap to BLE to protect skin from cuffs. Patient's bilateral heel continue to display small area of blanchable/slow to ralph redness with dry intact brown scab to R posterior ankle. His L medial ankle open abrasion is more open and moist could be related to pitting edema. Wound is red with yellow, pink lainey wound, minimal serous drainage noted, no odor noted. Patient's R sacral DTI looks evolving to full thickness wound measuring 2x2.5cm. Rt (2x4cm) and Lt (1.5x2cm) lower buttocks display open full thickness wound with no measurable depth. It appears that skin erosion from MASD progress contributed by incontinence and weeping edema complicated by high INR as wounds are has minimal sanguinous drainage. Patient's Rt groin, catheter site also noted with 0.5x4cm open wound with minimal moderate serous drainage. Cleansed wounds with wound cleanser,patted dry with gauze, applied Thera honey gel/honey gauze to open wound beds and covered wounds with Opti foam gentle dressing. To Rt groin cath site, cleansed, applied Thera honey gauze, covered with dry sterile gauze dressing. All wound stats can be found at nurse intervention wound assessment part. Repositioned patient for comfort facing his Lt side, redistributed pressure points with pillows and elevated edematous extremities on pillows. Patient tolerated well. BRIAN Black and guards at bedside. RECOMMENDATION: Continuation of all wound care order prescribed by MD, continue with skin/wound plan of care, continue monitoring by wound care while patient is hospitalized. Addendum: 11/22/19 at 1714 by Mimi Vargas RN Amended: Links added.
[2019-11-22] MEDS: PANTOPRAZOLE 40mg/50ML NS AE 50 ML IV SCH ×3 (15:07→22:34)
[2019-11-22] MEDS: VASOPRESSIN 50 UNITS in D5W 5% 247.5 ML IV SCH (15:26)
[2019-11-22] MEDS: levoFLOXacin 250MG 50 ML IV SCH (17:37)
--- NOTE | 2019-11-22 18:00 | NUR ---
Decreased Levophed to 6 mcg/min, SBP 105-120 mmHg, no fever noted, no active bleeding noted, continue Protonix and Levophed as ordered. HR 90-100/min.
--- NOTE | 2019-11-22 18:45 | NUR ---
Dr. Berman at the bedside, seen patient at this time, no new order noted.
--- NOTE | 2019-11-22 19:20 | NUR ---
OPENING NOTE RECEIVED REPORT FROM DAY SHIFT RN AND ASSUMED CARE OF PT. PT IS ASLEEP IN BED WITH EYES CLOSED. PT IS RESPONSIVE TO VOICE AND TOUCH, BUT IS UNABLE TO STATE HIS NAME// OR TELL WHERE HE IS AT. HE IS INCOHERENTLY MUMBLING AND WITHDRAWALS TO LIGHT TOUCH SAYING "OW." HE IS RUNNING A FIB ON THE MONITOR WITH STABLE BP. DOUBLE CONCENTRATED LEVOPHED RUNNING AT THIS TIME (SEE IV SPREADSHEET). PULSES PALPABLE, 2+ EDEMA NOTED IN ALL FOUR EXTREMITIES. 2L NC APPLIED, NO S/S OF RESPIRATORY DISTRESS NOTED. NG TUBE PLACED IN LEFT NARE AT 80 CM OSCAR. BOWEL SOUNDS ACTIVE. BASS CATHETER IN PLACE AND DRAINING APPROPRIATELY. SKIN ASSESSED WITH NO NEW CHANGES OTHER THAN WHAT HAS BEEN DOCUMENTED. GUARDS AT BEDSIDE. ALARMS IN PLACE. BED IS LOCKED AND IN LOWEST POSITION. 1ST UNIT OF [facility] IS TRANSFUSING AT THIS TIME.
--- NOTE | 2019-11-22 20:45 | NUR ---
1ST [facility] TRANSFUSION COMPLETE NO S/S OF TRANSFUSION REACTION NOTED. VITAL SIGNS STABLE. BLOOD BANK HAS 2ND FFP READY, WILL TRANSFUSE JUAN PABLO.
[2019-11-22] MEDS ORDERED: EPOETIN ALFA 10,000 UNIT/1 ML VIAL SC ONE (21:00)
--- NOTE | 2019-11-22 23:00 | NUR ---
2ND UNIT [facility] TRANSFUSED NO S/S OF REACTION NOTED. VITAL SIGNS STABLE AT THIS TIME.
[2019-11-23] VITALS (82 sets, daily range): BP systolic 71–129; BP diastolic 38–92
--- NOTE | 2019-11-23 00:30 | NUR ---
ATTEMPTED TO START TUBE FEEDINGS PER DIETARY RECOMMENDATION FROM 11/15 AND ACTIVE NEPRO ORDER IN [facility], BUT THERE IS NO NEPRO ON THE UNIT AT THIS TIME AND GEAR FINISHER IS UNABLE TO GET IT. MD SHARMA PUT IN A NEW DIETARY CONSULT ORDER AT 18:45 ON 11/21. WILL WAIT FOR THEM TO COME ON SHIFT AND TRY TO GET FEEDINGS INITIATED.
[2019-11-23 00:38] LABS: INR 1.99 (0.9-1.15)
[2019-11-23] MEDS: MORPHINE SULF INJ 2 MG/ML SYRINGE 1ML IV PRN (01:11)
[2019-11-23] MEDS: ceFAZolin 1GM/50ML 50 ML IV SCH ×2 (01:11→13:00)
--- NOTE | 2019-11-23 01:59 | NUR ---
WOUND CARE/DRESSING CHANGES SOILED OPTIFOAMS CHANGED. WOUNDS CLEANED WITH WOUND GROUP INSURANCE SPECIALIST SOLUTION AND GAUZE, DRIED AND THERAHONEY, OPTIFOAM REPLACED. CHUCKS REMAIN UNDER ALL EXTREMITIES DUE TO WEEPING. ALL ENTREATIES ELEVATED ON PILLOWS. STERILE DRESSING CHANGE DONE FOR FEMORAL DIALYSIS CATHETER. SIGNS OF INFECTION (SURROUNDING RED/GREEN AREA AND SKIN BREAKDOWN WITH DRAINAGE) ARE PRESENT AND WOUND CARE HAS SEEN THE PT FOR THIS. BIOPATCH IN PLACE. DRESSINGS ARE TIMED, DATED, AND INITIALED.
--- NOTE | 2019-11-23 02:05 | NUR ---
PT CARE GAVE PT CHG BATH. FULL KRISTINE AND GOWN CHANGE DONE. PT TURNED.
[2019-11-23] MEDS: PANTOPRAZOLE 40mg/50ML NS AE 50 ML IV SCH ×3 (02:10→15:27)
[2019-11-23 04:59] LABS: Basophils # (auto) 0 10 ^3/uL (0-0.2); Basophils % (auto) 0.1 % (0.0-2.0); Eosinophils # (auto) 0 10 ^3/uL (0-0.8); Eosinophils % (auto) 0.4 % (0.0-7.0); Hematocrit 19.9 % (41.0-53.0); Lymphocytes # (auto) 0.2 10 ^3/uL (0.4-5.4); Lymphocytes % (auto) 6.2 % (10.0-50.0); Mean Corpuscular Hemoglobin 32.7 pg (28.0-32.0); Mean Corpuscular Hgb Conc. 34.5 g/dL (32.0-36.0); Mean Corpuscular Volume 94.8 fL (80.0-100.0); Monocytes # (auto) 0.2 10 ^3/uL (0-1.3); Monocytes % (auto) 5.2 % (0.0-12.0); Neutrophils # (auto) 2.7 10 ^3/uL (1.6-8.6); Neutrophils % (auto) 88.1 % (37.0-80.0); Nucleated Red Blood Cells % 0.6 %; Platelet Count (auto) 53 10^3/uL (140-450); Red Cell Distribution Width 14.7 % (11.8-14.3); White Blood Cell 3.1 10^3/uL (4.4-10.8)
[2019-11-23 05:07] LABS: INR 1.85 (0.9-1.15)
[2019-11-23 05:14] LABS: Potassium 3.4 mmol/L (3.5-5.1)
[2019-11-23] MEDS: METOPROLOL TARTRATE 1MG/1ML-5ML VIAL IV SCH ×4 (05:19→23:54)
[2019-11-23 05:23] LABS: Albumin 2.6 g/dL (3.4-5.0); BUN/Creatinine Ratio 19.7; Bilirubin, Total 7.5 mg/dL (0.2-1.0); Calcium 8.1 mg/dL (8.5-10.1); Total Protein 4.9 g/dL (6.4-8.2)
[2019-11-23 05:41] LABS: Hemoglobin 6.9 g/dL (13.5-17.5)
[2019-11-23] MEDS: MIDODRINE HCL 10 MG TAB PO SCH ×3 (05:51→18:16)
--- NOTE | 2019-11-23 06:00 | NUR ---
NEPHROLOGY PAGED SPOKE WITH MD CARVAJAL. MADE AWARE OF PT CONDITION, CRITICAL HGB LAB VALUE, POTASSIUM OF 3.4, BLOOD GLUCOSE LEVELS. NEW ORDERS RECEIVED.
[2019-11-23] MEDS ORDERED: SODIUM CHLORIDE 0.9% 1,000 ML IV ONE (06:15)
[2019-11-23] MEDS ORDERED: DEXTROSE (50%) 50ML SYRG IV ONE (06:15)
[2019-11-23] MEDS: PHENYLEPHRINE INJ 40 MG in SODIUM CHL 0.9% 250 ML IV SCH (07:00)
--- NOTE | 2019-11-23 07:08 | NUR ---
[facility] TRANSFUSION BEGIN VERIFIED BY JIMMY ROWAN RN. VITAL SIGNS STABLE UPON ADMINISTRATION. WILL MAKE DAYSHIFT RN AWARE OF ONGOING TRANSFUSION.
--- NOTE | 2019-11-23 07:39 | NUR ---
REPORT GIVEN TO POLY ROME RN. MADE HER AWARE OF ONGOING BLOOD TRANSFUSION.
--- NOTE | 2019-11-23 08:00 | NUR ---
OPENING Report received from Marisabel TORRES. Care initiated and initial assessment complete.
[2019-11-23] MEDS: SODIUM CHLOR 0.9% PF (SALINE LOCK) 10ML VIAL/SYR IV SCH ×2 (09:57→23:53)
[2019-11-23] MEDS: ALLOPURINOL 100 MG TAB PO SCH (09:58)
[2019-11-23] MEDS: D5W/SOD CHL 0.45% 1,000 ML IV SCH ×2 (09:58→18:15)
--- NOTE | 2019-11-23 11:12 | NUR ---
BALTAZAR WENT HOME WITH Addendum: 11/23/19 at 1112 by Purnima Love RN RN WRONG PATIENT
--- NOTE | 2019-11-23 11:38 | NUR ---
Nutrition Follow up Notes Wt.: 101.6 kg pt sleeping with guards by bedside. per RN pt is NPO waiting to be initiated on TF support. RN informed of diet rec per MD approval. per records pt had HD 11/21 Est Energy needs 8958-7913 kcal (25-30 kcal/kg IBW 87.7) Est protein needs 122-150(1.2-1.5g/kg BW, CHANEL/CKD III with dialysis) Will reassess prn. Labs: BUN 59 H, CREAT 2.99 H, CA 8.1 L, ROEL 7.5 H, ALB 2.6 L. Skin: BS 10, high risk, pt with multiple wounds. Please refer to wound assessment report for full details. GI: Pt had 1 BM 11/18 per collar stitcher, PES: Altered nutrition related lab values r/t current medical condition aeb elev RFTs PES Altered: Overweight r/t excessive PO intake aeb 117% of IBW and BMI of 28.2 which is overweight Will continue to monitor PO intake, skin status, pertinent labs and weight trend. F/u in 2-3 days. Rec.: 1.) If TF initiated consider Nepro Carb Steady at 60 ml/hr per MD approval, with the addition of 1 prostat 2) advance diet as medically feasible. 3) consider nephrovite and Vit C bid. 4) continue current plan of care
--- NOTE | 2019-11-23 12:37 | NUR ---
BEDSIDE: ALENA Moreno bedside assessing patient. New order received to DC ernestina junior. Do not place new line at this time. Take patient to CT to assess for retroperitoneal bleeding.
--- NOTE | 2019-11-23 12:50 | NUR ---
JANI REMOVED Jani DC'd with sterile technique, catheter fully intact. Pressure held for 10 minutes and pressure dressing applied to site. Patient tolerated procedure well.
[2019-11-23 13:13] LABS: Hemoglobin 7.5 g/dL (13.5-17.5)
[2019-11-23 13:15] LABS: Hematocrit 21.9 % (41.0-53.0)
[2019-11-23] MEDS: NOREPINEPHRINE BITARTRATE 16 MG in SODIUM CHL 0.9% 250 ML IV SCH (15:27)
--- NOTE | 2019-11-23 15:50 | NUR ---
BEDSIDE: ZACHARY Posey bedside. No new orders received. Continue to monitor patients blood pressure.
[2019-11-23] MEDS: VASOPRESSIN 50 UNITS in D5W 5% 247.5 ML IV SCH (18:28)
--- NOTE | 2019-11-23 19:00 | NUR ---
CLOSING Report given to Marisabel TORRES. Care endorsed.
--- NOTE | 2019-11-23 19:30 | NUR ---
OPENING NOTE RECEIVED REPORT FROM DAY SHIFT RN AND ASSUMED CARE OF PT. PT IS ASLEEP IN BED WITH EYES CLOSED. PT IS RESPONSIVE TO VOICE AND TOUCH, BUT IS UNABLE TO STATE HIS NAME// OR TELL WHERE HE IS AT. HE IS INCOHERENTLY MUMBLING AND WITHDRAWALS TO LIGHT TOUCH SAYING "OW." HE IS RUNNING A FIB ON THE MONITOR WITH FREQUENT PVCS,WITH STABLE BP. PULSES PALPABLE, 2+ EDEMA NOTED IN ALL FOUR EXTREMITIES. 2L NC APPLIED, NO S/S OF RESPIRATORY DISTRESS NOTED. NG TUBE PLACED IN LEFT NARE AT 80 CM OSCAR. BOWEL SOUNDS ACTIVE. BASS CATHETER IN PLACE AND DRAINING APPROPRIATELY. SKIN ASSESSED WITH NO NEW CHANGES OTHER THAN WHAT HAS BEEN DOCUMENTED. GUARDS AT BEDSIDE. ALARMS IN PLACE. BED IS LOCKED AND IN LOWEST POSITION.
--- NOTE | 2019-11-23 19:45 | NUR ---
TUBE FEEDINGS INITIATED. NEPRO STARTED AT 25 ML/HR. POSITIVE PLACEMENT OF NG TUBE CONFIRMED VIA AUSCULTATION. WILL CONTINUE TO MONITOR AND ASSESS PT TOLERANCE AND INCREASE RATE.
[2019-11-24] VITALS (92 sets, daily range): BP systolic 75–129; BP diastolic 33–79
--- NOTE | 2019-11-24 | NUR ---
TUBE FEEDINGS REASSESSED PT TOLERANCE TO TUBE FEEDINGS. NO RESIDUALS NOTED. LUNGS ARE CLEAR. RATE INCREASED TO 30 ML/HR.
[2019-11-24] MEDS: ceFAZolin 1GM/50ML 50 ML IV SCH ×2 (01:00→15:12)
[2019-11-24] MEDS: PANTOPRAZOLE 40mg/50ML NS AE 50 ML IV SCH ×6 (01:00→23:20)
--- NOTE | 2019-11-24 02:30 | NUR ---
PT CARE GAVE PT BED BATH. FULL KRISTINE AND GOWN CHANGE DONE. PT TURNED.
[2019-11-24 04:37] LABS: Basophils # (auto) 0 10 ^3/uL (0-0.2); Eosinophils # (auto) 0 10 ^3/uL (0-0.8); Hemoglobin 8.1 g/dL (13.5-17.5); Lymphocytes # (auto) 0.3 10 ^3/uL (0.4-5.4); Mean Corpuscular Volume 94.5 fL (80.0-100.0); Monocytes # (auto) 0.2 10 ^3/uL (0-1.3); Neutrophils # (auto) 3.2 10 ^3/uL (1.6-8.6)
[2019-11-24 04:40] LABS: Basophils % (auto) 0.1 % (0.0-2.0); Eosinophils % (auto) 0.8 % (0.0-7.0); Hematocrit 23.8 % (41.0-53.0); Lymphocytes % (auto) 6.8 % (10.0-50.0); Mean Corpuscular Hgb Conc. 33.8 g/dL (32.0-36.0); Neutrophils % (auto) 87.3 % (37.0-80.0); Nucleated Red Blood Cells % 0.9 %; Platelet Count (auto) 55 10^3/uL (140-450); Red Blood Cells 2.52 10^6/uL (4.5-5.90); Red Cell Distribution Width 16.7 % (11.8-14.3); White Blood Cell 3.7 10^3/uL (4.4-10.8)
[2019-11-24 05:02] LABS: BUN/Creatinine Ratio 18.9; Calcium 6.9 mg/dL (8.5-10.1)
[2019-11-24] MEDS: METOPROLOL TARTRATE 1MG/1ML-5ML VIAL IV SCH ×3 (05:57→18:00)
[2019-11-24] MEDS: MIDODRINE HCL 10 MG TAB PO SCH ×3 (05:57→18:29)
[2019-11-24] MEDS: MORPHINE SULF INJ 2 MG/ML SYRINGE 1ML IV PRN (05:58)
--- NOTE | 2019-11-24 06:29 | NUR ---
TUBE FEEDINGS TOTAL TUBE FEEDING INTAKE FOR NOC SHIFT WAS 260 ML. NO RESIDUALS NOTED. NG TUBE STILL IN PLACE VIA AUSCULTATION.
[2019-11-24] MEDS ORDERED: POTASSIUM EFFERVESENT TAB 25 MEQ GT ONE ×2 (07:15→11:15)
[2019-11-24] MEDS: SODIUM CHLOR 0.9% PF (SALINE LOCK) 10ML VIAL/SYR IV SCH ×2 (07:44→21:36)
[2019-11-24] MEDS: PHENYLEPHRINE INJ 40 MG in SODIUM CHL 0.9% 250 ML IV SCH ×2 (07:44→14:11)
--- NOTE | 2019-11-24 07:53 | NUR ---
OPENING Report received from Marisabel TORRES. Care initiated and initial assessment completed.
--- NOTE | 2019-11-24 08:22 | NUR ---
ISMAEL WISEMAN: Kalpesh Gaytan MD for downgrade orders. Awaiting call back.
[2019-11-24] MEDS: ALLOPURINOL 100 MG TAB PO SCH (10:18)
[2019-11-24] MEDS: CALCITRIOL 0.25 MCG CAP PO SCH (10:18)
--- NOTE | 2019-11-24 11:54 | NUR ---
BEDSIDE: Josh Moreno bedside assessing patient. New orders received, MD placing them.
[2019-11-24] MEDS ORDERED: BUMETANIDE 2.5mg/10ml (0.25 mg/ml) INJ IV ONE (13:45)
[2019-11-24] MEDS: ALBUMIN 25% 100 ML IV SCH ×4 (15:00→20:00)
--- NOTE | 2019-11-24 15:00 | NUR ---
BEDSIDE: Kalpesh Posey bedside. No new orders received.
[2019-11-24] MEDS: NOREPINEPHRINE BITARTRATE 16 MG in SODIUM CHL 0.9% 250 ML IV SCH (15:31)
[2019-11-24] MEDS: levoFLOXacin 250MG 50 ML IV SCH (18:29)
[2019-11-24] MEDS: VASOPRESSIN 50 UNITS in D5W 5% 247.5 ML IV SCH (19:00)
--- NOTE | 2019-11-24 20:00 | NUR ---
OPENING NOTE RECEIVED REPORT FROM DAY SHIFT RN AND ASSUMED CARE OF PT. PT IS ASLEEP IN BED WITH EYES CLOSED. PT IS RESPONSIVE TO VOICE AND TOUCH, IS ABLE TO STATE HIS NAME, BUT NOT / OR TELL WHERE HE IS AT. HE IS INCOHERENTLY MUMBLING AND WITHDRAWALS TO LIGHT TOUCH SAYING "OW." HE IS RUNNING A FIB ON THE MONITOR WITH FREQUENT PVCS,WITH STABLE BP ON 4 MCG OF DOUBLE CONCENTRATED LEVOPHED. PULSES PALPABLE, 2+ EDEMA NOTED IN ALL FOUR EXTREMITIES. 4L NC APPLIED, NO S/S OF RESPIRATORY DISTRESS NOTED. NG TUBE PLACED IN LEFT NARE AT 80 CM OSCAR AND TUBE FEEDINGS RUNNING AT 30 ML/HR AND PT TOLERATING WELL WITH LITTLE TO NO RESIDUALS. BOWEL SOUNDS ACTIVE. BASS CATHETER IN PLACE AND DRAINING APPROPRIATELY. SKIN ASSESSED WITH NO NEW CHANGES OTHER THAN WHAT HAS BEEN DOCUMENTED. GUARDS AT BEDSIDE. ALARMS IN PLACE. BED IS LOCKED AND IN LOWEST POSITION.
--- NOTE | 2019-11-24 20:00 | NUR ---
TUBE FEEDING ASSESSMENT TUBE FEEDINGS CURRENTLY RUNNING AT 30 ML/HR. NO RESIDUALS NOTED. TUBE IS POSITIVELY PLACED VIA AUSCULTATION AND REINFORCED TO NOSE WITH TEGADERM DRESSING TO SECURE PLACEMENT.
[2019-11-25] VITALS (62 sets, daily range): BP systolic 79–120; BP diastolic 38–58
[2019-11-25] MEDS: ceFAZolin 1GM/50ML 50 ML IV SCH ×2 (01:53→12:24)
[2019-11-25] MEDS: MORPHINE SULF INJ 2 MG/ML SYRINGE 1ML IV PRN ×2 (01:54→05:56)
--- NOTE | 2019-11-25 02:00 | NUR ---
WOUND CARE/SKIN ASSESSMENT WHILE DOING BATH, SKIN ON BILATERAL UPPER LEGS IS NOTED TO BE JAUNDICE IN COLOR AND WEEPING EXCESSIVELY. WOUNDS ON BILATERAL ELBOWS CLEANED AND OPTIFOAMS CHANGED. RONAN PADS REMAIN IN PLACE FOR WEEPING.
--- NOTE | 2019-11-25 02:00 | NUR ---
PT CARE GAVE PT BED BATH. FULL KRISTINE AND GOWN CHANGE DONE. PT TURNED.
[2019-11-25 04:43] LABS: Calcium 7.8 mg/dL (8.5-10.1); Potassium 3.7 mmol/L (3.5-5.1)
[2019-11-25 04:45] LABS: BUN/Creatinine Ratio 21.2; Phosphorus 4.6 mg/dL (2.5-4.90); Uric Acid 6.9 mg/dL (3.5-7.2)
--- NOTE | 2019-11-25 04:57 | NUR ---
TUBE FEEDING ASSESSMENT PT CURRENTLY RUNNING NEPRO AT 45 ML/HR. LESS THAN 10 ML RESIDUALS NOTED. FEEDINGS CONTINUED.
[2019-11-25] MEDS: METOPROLOL TARTRATE 1MG/1ML-5ML VIAL IV SCH ×4 (06:00→18:00)
[2019-11-25] MEDS: PHENYLEPHRINE INJ 40 MG in SODIUM CHL 0.9% 250 ML IV SCH ×2 (06:51→23:31)
[2019-11-25] MEDS: MIDODRINE HCL 10 MG TAB PO SCH ×3 (07:14→18:23)
[2019-11-25] MEDS: PANTOPRAZOLE 40mg/50ML NS AE 50 ML IV SCH ×4 (07:35→17:30)
--- NOTE | 2019-11-25 07:50 | NUR ---
OPENING Report received from Marisabel ELLINGTON RN. Care initiated and initial assessment complete.
[2019-11-25] MEDS: ALLOPURINOL 100 MG TAB PO SCH (09:39)
[2019-11-25] MEDS: SODIUM CHLOR 0.9% PF (SALINE LOCK) 10ML VIAL/SYR IV SCH ×2 (09:39→22:30)
[2019-11-25] MEDS: CALCITRIOL 0.25 MCG CAP PO SCH (09:39)
--- NOTE | 2019-11-25 11:21 | NUR ---
Nutrition Follow up Notes Wt.: 103.9 kg pt sleeping with guards by bedside. per RN pt is NPO on EN support with Nephro carb steady @ 45 ml/hr providing 1944 kcals and 87 gm proteins. pt with fair EN support as it meets 73-88% kcals and 58-71% proteins. pt hd HD 11/21 per records Est Energy needs [id number] kcal (25-30 kcal/kg IBW 87.7) Est protein needs 122-150(1.2-1.5g/kg BW, CHANEL/CKD III with dialysis) Will reassess prn. Labs: BUN 77 H, CREAT 3.63 H, CA 7.8 L, ALB 2.6 L. Skin: BS 10, high risk, pt with multiple wounds. Please refer to wound assessment report for full details. GI: Pt had 1 BM 11/18 per drill runner, PES: Altered nutrition related lab values r/t current medical condition aeb elev RFTs PES Altered: Overweight r/t excessive PO intake aeb 117% of IBW and BMI of 28.2 which is overweight Will continue to monitor PO intake, skin status, pertinent labs and weight trend. F/u in 2-3 days. Rec.: 1.) Advance EN support with Nepro Carb Steady at 60 ml/hr per MD approval, with the addition of 1 prostat 2) advance diet as medically feasible. 3) consider nephrovite and Vit C bid. 4) continue current plan of care
[2019-11-25] MEDS: NOREPINEPHRINE BITARTRATE 16 MG in SODIUM CHL 0.9% 250 ML IV SCH (12:24)
[2019-11-25] MEDS: BUMETANIDE INJECTION 25 MG in GIVE UN-DILUTED 0 ML IV SCH ×2 (17:15→19:50)
[2019-11-25] MEDS ORDERED: SODIUM CHLORIDE 0.9% 1,000 ML IV ONE (17:15)
[2019-11-25] MEDS: VASOPRESSIN 50 UNITS in D5W 5% 247.5 ML IV SCH (18:24)
[2019-11-26] VITALS (77 sets, daily range): BP systolic 76–132; BP diastolic 18–64
[2019-11-26] MEDS: ceFAZolin 1GM/50ML 50 ML IV SCH ×2 (00:29→12:42)
[2019-11-26] MEDS: PANTOPRAZOLE 40mg/50ML NS AE 50 ML IV SCH ×6 (00:29→22:34)
[2019-11-26] MEDS: MORPHINE SULF INJ 2 MG/ML SYRINGE 1ML IV PRN ×3 (00:52→15:37)
[2019-11-26 04:59] LABS: Basophils # (auto) 0 10 ^3/uL (0-0.2); Eosinophils # (auto) 0 10 ^3/uL (0-0.8); Lymphocytes # (auto) 0.6 10 ^3/uL (0.4-5.4); Monocytes # (auto) 0.4 10 ^3/uL (0-1.3)
[2019-11-26 05:02] LABS: Basophils % (auto) 0.4 % (0.0-2.0); Eosinophils % (auto) 0.9 % (0.0-7.0); Hematocrit 25.2 % (41.0-53.0); Hemoglobin 8.8 g/dL (13.5-17.5); Lymphocytes % (auto) 14.3 % (10.0-50.0); Mean Corpuscular Hemoglobin 32.4 pg (28.0-32.0); Mean Corpuscular Hgb Conc. 34.8 g/dL (32.0-36.0); Mean Corpuscular Volume 92.9 fL (80.0-100.0); Monocytes % (auto) 10.2 % (0.0-12.0); Neutrophils % (auto) 74.2 % (37.0-80.0); Nucleated Red Blood Cells % 1.4 %; Platelet Count (auto) 59 10^3/uL (140-450); Red Blood Cells 2.71 10^6/uL (4.5-5.90); Red Cell Distribution Width 15.7 % (11.8-14.3)
--- NOTE | 2019-11-26 05:15 | NUR ---
Patient bathe/linen change Patient given complete bath. Skin integrity assessed for any changes. Linens changed. Patient repositioned for comfort.
[2019-11-26 05:22] LABS: BUN/Creatinine Ratio 23.3; Calcium 7.4 mg/dL (8.5-10.1); Potassium 3.7 mmol/L (3.5-5.1)
[2019-11-26] MEDS: METOPROLOL TARTRATE 1MG/1ML-5ML VIAL IV SCH ×4 (05:42→17:43)
[2019-11-26] MEDS: MIDODRINE HCL 10 MG TAB PO SCH ×3 (05:43→17:43)
--- NOTE | 2019-11-26 06:00 | NUR ---
MED HELD METOPROLOL 0000 DOSE AND 0600 DOSE HELD DUE TO LOW BP. AWARE.
[2019-11-26 06:17] LABS: Urine Bacteria MOD /hpf (None Seen); Urine Blood 3+ /uL (Negative); Urine Mucus FEW (None Seen); Urine Specific Gravity 1.012 (1.001-1.035); Urine WBC 99 /hpf (0 - 3)
[2019-11-26 06:29] LABS: Protein, Urine 143.2 mg/dL (0.0-11.9)
--- NOTE | 2019-11-26 07:21 | NUR ---
REPORT RECEIVED FROM TEAR DOWN MATCHER RN
--- NOTE | 2019-11-26 08:05 | NUR ---
PATIENT MEDICATED FOR PAIN
[2019-11-26] MEDS: CALCITRIOL 0.25 MCG CAP PO SCH (09:23)
[2019-11-26] MEDS: ALLOPURINOL 100 MG TAB PO SCH (09:23)
[2019-11-26] MEDS: SODIUM CHLOR 0.9% PF (SALINE LOCK) 10ML VIAL/SYR IV SCH ×2 (09:23→22:33)
--- NOTE | 2019-11-26 10:00 | NUR ---
PATIENT REPOSITIONED TOLERATED POORLY DUE TO PAIN
--- NOTE | 2019-11-26 11:37 | NUR ---
DR. CHAVEZ AT BEDSIDE
[2019-11-26] MEDS: NOREPINEPHRINE 8 MG/250ML KIT 250 ML IV SCH (11:47)
--- NOTE | 2019-11-26 13:47 | NUR ---
PARTIAL LINEN CHANGE PERFORMED
[2019-11-26] MEDS: NOREPINEPHRINE BITARTRATE 16 MG in SODIUM CHL 0.9% 250 ML IV SCH (15:31)
[2019-11-26] MEDS: BUMETANIDE INJECTION 25 MG in GIVE UN-DILUTED 0 ML IV SCH (15:38)
--- NOTE | 2019-11-26 16:08 | NUR ---
LARGE BOWEL MOVEMENT. PATIENT CLEANSED AND SACRAL DRESSING CHANGED
[2019-11-26] MEDS: PHENYLEPHRINE INJ 40 MG in SODIUM CHL 0.9% 250 ML IV SCH (16:11)
[2019-11-26] MEDS: levoFLOXacin 250MG 50 ML IV SCH (17:42)
[2019-11-26] MEDS: VASOPRESSIN 50 UNITS in D5W 5% 247.5 ML IV SCH (19:00)
--- NOTE | 2019-11-26 19:15 | NUR ---
Opening notes Assumed care, awake, generalized weakness still noted, afebrile, weeping of upper and lower extremities still noted, on room air, sat 99%, still atrial fib, with right upper arm PICC line infusing levophed, protonix and bumex drip, álvarez catheter draining to a dark gato urine. Bed in lowest position with side rails up, bed alarm on. Will continue care. 2 guards at bedside. Addendum: 11/27/19 at 0104 by Lars Mi RN nepro carb feeding @ 60 ml/hr
[2019-11-27] VITALS (85 sets, daily range): BP systolic 79–131; BP diastolic 32–66
[2019-11-27] MEDS: ceFAZolin 1GM/50ML 50 ML IV SCH ×2 (01:00→14:17)
--- NOTE | 2019-11-27 02:30 | NUR ---
Wound care Wound dressing done
--- NOTE | 2019-11-27 03:00 | NUR ---
Hygiene/ elimination Moderate amount of soft, light brown stools noted, cleansed, CHG bath given, linens and gown changed. Repositioned for comfort
[2019-11-27] MEDS: PANTOPRAZOLE 40mg/50ML NS AE 50 ML IV SCH ×5 (04:19→23:00)
[2019-11-27 04:47] LABS: Calcium 7.4 mg/dL (8.5-10.1); Potassium 3.8 mmol/L (3.5-5.1)
[2019-11-27 04:49] LABS: BUN/Creatinine Ratio 24.9; Phosphorus 5.5 mg/dL (2.5-4.90)
[2019-11-27] MEDS: METOPROLOL TARTRATE 1MG/1ML-5ML VIAL IV SCH ×5 (05:13→23:00)
[2019-11-27] MEDS: MIDODRINE HCL 10 MG TAB PO SCH ×3 (06:39→18:10)
--- NOTE | 2019-11-27 08:00 | NUR ---
AM ASSESSMENT COMPLETED. MONITOR ALARMS VERIFIED. ALL GTTS VERIFIED. ORAL CARE PROVIDED. REPOSITIONED FOR COMFORT. PT CURRENTLY ON LEVOPHED FOR B/P SUPPORT, BUMEX GTT FOR UOP, PROTONIX GTT FOR PUD (GI BLEED). RE-STARTED TF NEPRO AT 60 ML/HR) PT HAD NO RESIDUALS. EDUCATED ON POC. PT VERBALIZED UNDERSTANDING.
[2019-11-27] MEDS: PHENYLEPHRINE INJ 40 MG in SODIUM CHL 0.9% 250 ML IV SCH (08:51)
[2019-11-27] MEDS: CALCITRIOL 0.25 MCG CAP PO SCH (11:03)
[2019-11-27] MEDS: ALLOPURINOL 100 MG TAB PO SCH (11:03)
[2019-11-27] MEDS: SODIUM CHLOR 0.9% PF (SALINE LOCK) 10ML VIAL/SYR IV SCH ×2 (11:04→21:52)
[2019-11-27] MEDS: NOREPINEPHRINE 8 MG/250ML KIT 250 ML IV SCH (11:32)
--- NOTE | 2019-11-27 11:34 | NUR ---
DR. CHAVEZ ROUNDING ON PT UPDATED ON PT'S CONDITION NEW ORDERS RECEIVED TO CONTINUE BUMEX GTT, CURRENT NUTRITION AND STARTED PT ON ALBUMIN. CURRENT GGTS REVIEWED.
[2019-11-27] MEDS: CALCIUM ACETATE 667 MG CAP PO SCH ×2 (11:50→18:10)
[2019-11-27] MEDS: ALBUMIN 25% 100 ML IV SCH ×2 (11:51→21:52)
--- NOTE | 2019-11-27 11:59 | NUR ---
Nutrition Follow up Notes Wt.: 106.1 kg pt sleeping with guards by bedside. per RN pt is NPO on EN support with Nephro carb steady @ 60 ml/hr providing 2592 kcal and 117g. pt with adequate EN support as it meets 99-118% kcals and 78-96% proteins. Pt still receiving dialysis Est Energy needs 5472-4393 kcal (25-30 kcal/kg IBW 87.7) Est protein needs 122-150(1.2-1.5g/kg BW, CHANEL/CKD III with dialysis) Will reassess prn. Labs: BUN 112H, Creat 4.49H, Ca 7.4L, Alb 2.6L Skin: BS 12, high risk, pt with multiple wounds. Please refer to wound assessment report for full details. GI: Pt had 1 BM 6/2 per central office mechanic, PES: Altered nutrition related lab values r/t current medical condition aeb elev RFTs PES Altered: Overweight r/t excessive PO intake aeb 117% of IBW and BMI of 28.2 which is overweight Will continue to monitor PO intake, skin status, pertinent labs and weight trend. F/u in 2-3 days. Rec.: 1.) Advance EN support with Nepro Carb Steady at 60 ml/hr per MD approval, with the addition of 1 prostat 2) advance diet as medically feasible. 3) consider nephrovite and Vit C bid. 4) continue current plan of care
--- NOTE | 2019-11-27 12:53 | NUR ---
WEANED OF LEVOPHED AT THIS TIME. SEE IV FLOW SHEET.
[2019-11-27] MEDS: BUMETANIDE INJECTION 25 MG in GIVE UN-DILUTED 0 ML IV SCH (14:53)
[2019-11-27] MEDS: NOREPINEPHRINE BITARTRATE 16 MG in SODIUM CHL 0.9% 250 ML IV SCH (15:31)
--- NOTE | 2019-11-27 18:00 | NUR ---
DR. SHARMA ROUNDING ON PT. UPDATED ON PT'S CONDITION. HE IS AWARE PT IS OFF LEVOPHED SINCE 1400. MD STILL WANTS PT TO STAY IN ICU. STATES PT'S BP DOESN'T LAST OFF LEVOPHED FOR MORE THAN A DAY. AWARE THAT PT IS ON ALBUMIN AND BUMEX, SO FAR NO PLANS FOR HD AT THIS TIME. PT TOLERATING TF AT THIS TIME.
--- NOTE | 2019-11-27 18:10 | NUR ---
HYPOTENSION PT'S BP DROPPED TO THE 70'S. I HAD TO RE-START LEVOPHED AT 2 MCG/MIN SEE VS FLOW SHEET & IV FLOW SHEET.
[2019-11-27] MEDS: VASOPRESSIN 50 UNITS in D5W 5% 247.5 ML IV SCH (19:00)
--- NOTE | 2019-11-27 19:00 | NUR ---
REPORT GIVEN TO KNIFER UP RN.
--- NOTE | 2019-11-27 19:00 | NUR ---
Opening Shift Note Assumed care of patient, awake and alert to self. No S/S of distress/SOB or pain. Instructed on POC and to call for assist PRN, will continue to monitor for changes Q1hr and PRN.
[2019-11-27] MEDS: MORPHINE SULF INJ 2 MG/ML SYRINGE 1ML IV PRN (23:09)
[2019-11-28] VITALS (92 sets, daily range): BP systolic 71–125; BP diastolic 21–63
--- NOTE | 2019-11-28 00:11 | NUR ---
BM: Patient had a large BM. Patient was cleaned and linen change performed. Patient tolerated intervention well.
[2019-11-28] MEDS: ceFAZolin 1GM/50ML 50 ML IV SCH ×2 (01:00→12:21)
[2019-11-28] MEDS: PHENYLEPHRINE INJ 40 MG in SODIUM CHL 0.9% 250 ML IV SCH ×2 (01:31→18:11)
[2019-11-28 04:47] LABS: Basophils # (auto) 0 10 ^3/uL (0-0.2); Basophils % (auto) 0.4 % (0.0-2.0); Eosinophils # (auto) 0 10 ^3/uL (0-0.8); Hematocrit 23.6 % (41.0-53.0); Lymphocytes # (auto) 0.7 10 ^3/uL (0.4-5.4); Lymphocytes % (auto) 18.8 % (10.0-50.0); Mean Corpuscular Hgb Conc. 33.9 g/dL (32.0-36.0); Mean Corpuscular Volume 94.4 fL (80.0-100.0); Monocytes # (auto) 0.5 10 ^3/uL (0-1.3); Monocytes % (auto) 13.4 % (0.0-12.0); Neutrophils # (auto) 2.6 10 ^3/uL (1.6-8.6); Neutrophils % (auto) 66.4 % (37.0-80.0); Nucleated Red Blood Cells % 0.7 %; Platelet Count (auto) 70 10^3/uL (140-450); Red Cell Distribution Width 15.8 % (11.8-14.3); White Blood Cell 3.9 10^3/uL (4.4-10.8)
[2019-11-28] MEDS: PANTOPRAZOLE 40mg/50ML NS AE 50 ML IV SCH ×4 (04:52→20:49)
[2019-11-28 05:07] LABS: BUN/Creatinine Ratio 27.5; Calcium 7.3 mg/dL (8.5-10.1); Potassium 3.3 mmol/L (3.5-5.1)
[2019-11-28] MEDS: METOPROLOL TARTRATE 1MG/1ML-5ML VIAL IV SCH ×3 (05:32→18:00)
[2019-11-28] MEDS: MIDODRINE HCL 10 MG TAB PO SCH ×3 (05:35→18:14)
--- NOTE | 2019-11-28 08:00 | NUR ---
AM ASSESSMENT PT AWAKE , ALERT ORIENTED TO SELF, ANSWERS SOME QUESTIONS APPROPRIATELY. PT REMAINS ON LEVOPHED FOR BP SUPPORT, CURRENTLY AT 2 MCG/MIN, PROTONIX AT 8 MG/MIN, BUMEX AT 1 MG/MIN FOR RENAL FAILURE, PT BEING FOLLOWED CLOSELY BY SCHOOL COUNSELOR. ALL MONITOR ALARMS AND GTTS VERIFIED.
--- NOTE | 2019-11-28 08:30 | NUR ---
BM ELIMINATION PT HAD A LARGE BROWN BM WITH STREAK OF BLOOD. COMPLETE BED BATH GIVEN. SACRUM WORN CLEANED WITH WOUND CLEANSER PADDED DRY AND FOAM DRESSING APPLIED. ABD PAD REPLACED TO RT GROIN WHERE HD CATHETER USED TO BE INSERTED PT IS LEAKING OUT SEROUS FLUID. PARTIAL LINEN AND PT'S GOWN CHANGED. REPOSITIONED FOR COMFORT WITH BRIAN KERN'S ASSISTANCE. PT TOLERATED ALL CARE WITH SOME MOANING. PT ALWAYS MOANS WHEN TOUCHED, OR TURNED.
[2019-11-28] MEDS: CALCIUM ACETATE 667 MG CAP PO SCH ×3 (09:15→18:00)
[2019-11-28] MEDS: POTASSIUM CHL 20MEQ/100ML 100 ML IV SCH ×2 (09:15→11:22)
[2019-11-28] MEDS: MORPHINE SULF INJ 2 MG/ML SYRINGE 1ML IV PRN ×2 (10:08→15:13)
--- NOTE | 2019-11-28 10:08 | NUR ---
PAIN PT MOANING IN PAIN FACIAL GRIMACING 10/10 NON VERBAL SCALE. MEDICATED WITH 2 MG MS IVP FOR PAIN IN ABDOMEN AND ON BACK OF HIS HEAD. PT HAS HAD TWO LARGE BM'S THIS AM AND IS ON A PROTONIX GTT AT 8 MG/HR FOR GI BLEED.
[2019-11-28] MEDS: ALLOPURINOL 100 MG TAB PO SCH (10:13)
[2019-11-28] MEDS: SODIUM CHLOR 0.9% PF (SALINE LOCK) 10ML VIAL/SYR IV SCH ×2 (10:13→21:47)
[2019-11-28] MEDS: CALCITRIOL 0.25 MCG CAP PO SCH (10:13)
[2019-11-28] MEDS: ALBUMIN 25% 100 ML IV SCH ×2 (10:13→21:48)
--- NOTE | 2019-11-28 10:20 | NUR ---
PAIN UNRELIEVED BY MS. PT STILL CRYING AND MOANING IN PAIN.
--- NOTE | 2019-11-28 10:26 | NUR ---
TUBE FEEDING STOPPED AT THIS TIME PT CRYING ON PAIN STATING STOMACH HURTS. I HAD MEDICATED WITH 2 MG MS. PT HAD A LARGE BM LAST NIGHT AND ALSO THIS AM. PT REMAINS ON PROTONIX GTT AT 8MG/HR. I'LL NOTIFY GI MD.
[2019-11-28] MEDS: NOREPINEPHRINE 8 MG/250ML KIT 250 ML IV SCH ×2 (11:32→23:26)
--- NOTE | 2019-11-28 11:50 | NUR ---
PAGED DR. RENDON WHO IS REVENUE ANALYST FOR GI . TO NOTIFY HIM OF PT'S ABDOMINAL PAIN.
--- NOTE | 2019-11-28 11:59 | NUR ---
DR. KOO CALLED BACK NEW ORDERS RECEIVED FOR CARAFATE AND WILL CONTINUE MONITORING AND I WAS INSTRUCTED TO NOTIFY DR. SHARMA. LABS REVIEWED H+H AND LARGE BM'S.
--- NOTE | 2019-11-28 12:11 | NUR ---
PAGED DR. SHARMA TO REQUEST ADDITIONAL PAIN MEDICATION.
[2019-11-28] MEDS: SUCRALFATE 1 GM/10 ML ORAL SUSP PO SCH ×3 (12:20→21:48)
--- NOTE | 2019-11-28 12:20 | NUR ---
STARTED PT ON CARAFATE VIA NGT TO COAT AND PROTECT THE STOMACH FROM GI ULCERS IRRITATION PER DR. BETH MUNOZ.
--- NOTE | 2019-11-28 13:50 | NUR ---
PT' NOW SLEEPING QUIETLY, NO MORE CRYING OR MOANING IN PAIN, CARAFATE SEEMS TO HELP WITH GI SYMPTOMS.
[2019-11-28] MEDS: BUMETANIDE INJECTION 25 MG in GIVE UN-DILUTED 0 ML IV SCH (14:45)
--- NOTE | 2019-11-28 15:13 | NUR ---
PAIN PT CRYING IN PAIN AGAIN. I ASKED HIM IF HE WOULD LIKE SOME PAIN MEDICATION PT SAYS YES. I HAD TO INCREASED LEVOPHED D/T HYPOTENSION. TO BRING UP BP PRIOR TO MEDICATING PT. SEE IV FLOW SHEET.
[2019-11-28] MEDS: levoFLOXacin 250MG 50 ML IV SCH (17:14)
[2019-11-28] MEDS: VASOPRESSIN 50 UNITS in D5W 5% 247.5 ML IV SCH (18:15)
--- NOTE | 2019-11-28 18:20 | NUR ---
DR. SHARMA IN TO SEE PT . I UPDATED HIM ON PT'S INCREASED ABDOMINAL PAIN. AND MS , NOT SEEMS TO BE RELIEVING THE PAIN. PT HURTING MOANING MOST OF THE TIME. PT HAS BEEN MEDICATED 3 TIMES DURING THE SHIFT AND A RESULT I HAD T O INCREASE THE LEVOPHED. AND ALSO I HAVE NOT BEEN ABLE TO REPOSITION PT. MUCH DUE TO INCREASED PAIN. TUBE FEEDINGS ARE ON HOLD. PT HAD KCL REPLACEMENT IV SINCE KCL WAS INFUSING GI SYMPTOMS STARTED. MD DOESN'T THINK IT COULD BE RELATED SINCE KCL WAS REPLACED INTRAVENOUSLY. MD WILL INCREASE MS TO 4MG Q 4 HR.
[2019-11-28] MEDS ORDERED: MORPHINE SULF INJ 2 MG/ML SYRINGE 1ML IV PRN (18:30)
--- NOTE | 2019-11-28 19:00 | NUR ---
ENDORSED PT CARE TO RN. LENNY FREEMAN.
--- NOTE | 2019-11-28 23:10 | NUR ---
Wound care: RN attempted to perform wound care on patient but patient immediately began to yell upon RN touching the patient's skin. No movement to patient's extremities was applied yet, just mild pressure with finger and patient was still yelling "you are hurting me, leave me alone". Wound care, left alone at this time.
[2019-11-29] VITALS (80 sets, daily range): BP systolic 68–124; BP diastolic 35–79
[2019-11-29] MEDS: ceFAZolin 1GM/50ML 50 ML IV SCH ×2 (01:00→12:53)
[2019-11-29] MEDS: PANTOPRAZOLE 40mg/50ML NS AE 50 ML IV SCH ×5 (01:38→21:30)
--- NOTE | 2019-11-29 03:15 | NUR ---
Wound care: RN attempted again to perform wound care on patient but patient continues to immediately yell upon being touched, even when just repositioning his extremities. Patient was verbalizing "No" during wound care attempt.
[2019-11-29] MEDS: METOPROLOL TARTRATE 1MG/1ML-5ML VIAL IV SCH ×5 (05:42→23:40)
[2019-11-29] MEDS: MIDODRINE HCL 10 MG TAB PO SCH ×3 (05:58→17:29)
[2019-11-29] MEDS: SUCRALFATE 1 GM/10 ML ORAL SUSP PO SCH ×4 (05:58→22:00)
[2019-11-29] MEDS: CALCIUM ACETATE 667 MG CAP PO SCH ×3 (08:00→17:29)
--- NOTE | 2019-11-29 08:53 | NUR ---
LEFT NG IN PLACE AFTER PLACEMENT VERIFICATION VIA AUSCULTATION. NO GASTRIC RESIDUAL. PER REPORT PATIENT TO REMAIN NPO. FEEDINGS REMAINS ON HOLD UNTIL MD ROUNDS.
--- NOTE | 2019-11-29 08:55 | NUR ---
Randi BALBUENA HELD, PT NPO. AWAITING MD FOR VERIFICATION TO USE.
[2019-11-29] MEDS: CALCITRIOL 0.25 MCG CAP PO SCH (08:56)
[2019-11-29] MEDS: ALLOPURINOL 100 MG TAB PO SCH (08:56)
[2019-11-29] MEDS: PHENYLEPHRINE INJ 40 MG in SODIUM CHL 0.9% 250 ML IV SCH ×2 (08:56→08:58)
[2019-11-29] MEDS: VASOPRESSIN 50 UNITS in D5W 5% 247.5 ML IV SCH (08:58)
--- NOTE | 2019-11-29 09:00 | NUR ---
PHYSICAL THERAPY AT BEDSIDE.
--- NOTE | 2019-11-29 09:00 | NUR ---
WOUND CARE NOTE: IN TO SEE PATIENT AT THIS TIME FOR SKIN INTEGRITY. PATIENT HAS CURRENT JANE SCORE OF 12. PATIENT RESTING ON LOW AIRLOSS ICU MATTRESS/BED. PATIENT IS MAX ASSIST FOR ALL OF HIS ADL'S. HE HAS MULTIPLE SKIN INTEGRITY ISSUES INCLUDING ECCHYMOSIS/BLISTERS TO LIMBS/TRUNK, BILATERAL ELBOW ERYTHEMA/EDEMA (BOGGY), INTACT DTI TO BILATERAL HEELS, OPEN BLISTER/ULCER TO THE LEFT MEDIAL ANKLE, OPEN BLISTER WITH SKIN EROSION TO THE RIGHT GROIN, THIGH, EVOLVING DTI WITH MASD/SKIN EROSION TO THE SACRUM, INTERTRIGO TO GROIN, BILAT THIGHS, ABRASION/ERYTHEMA TO CHIN/NECK FROM NECK COLLAR. ALL WOUNDS PHOTOGRAPHED AND DOCUMENTED ON WOUND ASSESSMENT, LINKED TO THIS NOTE. DRESSED ALL WOUNDS PER MD ORDER. RECOMMEND: CONTINUATION WITH ALL WOUND CARE ORDERS PREVIOUSLY PRESCRIBED BY MD. WOUND CARE TEAM WILL CONTINUE TO MONITOR. Addendum: 11/29/19 at 1547 by Jaida Hugo RN Amended: Links added.
--- NOTE | 2019-11-29 09:29 | NUR ---
WOUND CARE NURSE AT BEDSIDE.
[2019-11-29 09:40] LABS: Basophils # (auto) 0 10 ^3/uL (0-0.2); Basophils % (auto) 0.7 % (0.0-2.0); Eosinophils # (auto) 0 10 ^3/uL (0-0.8); Eosinophils % (auto) 0.6 % (0.0-7.0); Hemoglobin 8.2 g/dL (13.5-17.5); Lymphocytes # (auto) 0.6 10 ^3/uL (0.4-5.4); Mean Corpuscular Hgb Conc. 33.7 g/dL (32.0-36.0); Monocytes # (auto) 0.6 10 ^3/uL (0-1.3); Nucleated Red Blood Cells % 0.3 %
[2019-11-29 09:42] LABS: Hematocrit 24.2 % (41.0-53.0); Lymphocytes % (auto) 15.2 % (10.0-50.0); Mean Corpuscular Hemoglobin 32.4 pg (28.0-32.0); Mean Corpuscular Volume 96.2 fL (80.0-100.0); Monocytes % (auto) 13.7 % (0.0-12.0); Neutrophils % (auto) 69.8 % (37.0-80.0); Platelet Count (auto) 90 10^3/uL (140-450); Red Blood Cells 2.52 10^6/uL (4.5-5.90); Red Cell Distribution Width 16.2 % (11.8-14.3); White Blood Cell 4.3 10^3/uL (4.4-10.8)
[2019-11-29 10:00] LABS: Calcium 7.8 mg/dL (8.5-10.1); Chloride 108 mmol/L (98-107); Sodium 141 mmol/L (136-145)
[2019-11-29 10:07] LABS: Alanine Aminotransferase < 6 U/L (16-61); Albumin 2.4 g/dL (3.4-5.0); Alkaline Phosphatase 235 U/L (45-117); Anion Gap 13 (5-15); Aspartate Aminotransferase 127 U/L (15-37); Carbon Dioxide 20 mmol/L (21-32); GFR African American 15 mL/min; GFR Non-African American 12 mL/min; Total Protein 4.7 g/dL (6.4-8.2)
[2019-11-29 10:16] LABS: Blood Urea Nitrogen 135 mg/dL (7-18); Glucose 48 mg/dL (74-106)
[2019-11-29] MEDS ORDERED: DEXTROSE 50% SYRINGE 50 ML IV ONE (10:23)
--- NOTE | 2019-11-29 10:29 | NUR ---
lab called with critical lab values Blood sugar via finger stick performed 2x. Blood sugar. Dextrose % given ivp. Patient alert x1 as reported, opening eye spontaneously. See follow up. aware. Addendum: 11/29/19 at 1037 by Glenys Vance RN Dr. Sanjay madsen to notify. Addendum: 11/29/19 at 1127 by Glenys Vance RN Follow up blood sugar reading 102. No further interventions at this time.
[2019-11-29] MEDS: SODIUM CHLOR 0.9% PF (SALINE LOCK) 10ML VIAL/SYR IV SCH ×2 (10:32→22:00)
[2019-11-29] MEDS: NOREPINEPHRINE 8 MG/250ML KIT 250 ML IV SCH (10:33)
--- NOTE | 2019-11-29 10:57 | NUR ---
updated Dr. Posey updated on patients status. ok to restart TF due to patients low blood suagr. Md aware of increase of levophed. Morphine d/c'd, ok to start on [place] via ng if needed. Levophed to be concentrated.
--- NOTE | 2019-11-29 10:59 | NUR ---
Tube feedings restarted TF started at 30ml/hr via left ng after placement verification. Aspiration precautions in place.
--- NOTE | 2019-11-29 11:43 | NUR ---
Nutrition Follow up Notes Wt.: 109.5 kg pt sleeping with guards by bedside. per RN pt is NPO on EN support with Nephro carb steady @ 30 ml/hr providing 1296 kcal and 58g. pt with adequate EN support as it meets 49-59% kcals and 39-48% proteins. pt last HD was on 11/21 Est Energy needs 7924-8643 kcal (25-30 kcal/kg IBW 87.7) Est protein needs 122-150(1.2-1.5g/kg BW, CHANEL/CKD III with dialysis) Will reassess prn. Labs: BUN 125 H, CREAT 4.54 H, GLU 109 H, CA 7.3 L, PHOS 5.5 H Skin: BS 12, high risk, pt with multiple wounds. Please refer to wound assessment report for full details. GI: Pt had 1 BM 11/27 per sub arc operator, PES: Altered nutrition related lab values r/t current medical condition aeb elev RFTs PES Altered: Overweight r/t excessive PO intake aeb 117% of IBW and BMI of 28.2 which is overweight Will continue to monitor PO intake, skin status, pertinent labs and weight trend. F/u in 2-3 days. Rec.: 1.) Advance EN support with Nepro Carb Steady at 60 ml/hr per MD approval, with the addition of 1 prostat if pt continues on HD. 2) consider glucerna @ 72 ml.hr if pt not on HD any more. 3) advance diet as medically feasible. 4) consider nephrovite and Vit C bid. 5) continue current plan of care.
--- NOTE | 2019-11-29 12:44 | NUR ---
UTILITY MECHANIC AT BEDSIDE DR. CHAVEZ AWARE OF CRITICAL LAB VALUES. SEE NEW ORDERS. SIGNED CONSENT FOR DIALYSIS CATHETER TO BE INSERTED. DR. WASSERMAN TO SIGN SECOND IF HE AGREES WITH TREATMENT.
[2019-11-29] MEDS: NOREPINEPHRINE BITARTRATE 16 MG in SODIUM CHL 0.9% 250 ML IV SCH (12:51)
[2019-11-29] MEDS: BUMETANIDE INJECTION 25 MG in GIVE UN-DILUTED 0 ML IV SCH (13:41)
[2019-11-29] MEDS: HYDROcodone-ACET 10/325MG TAB PO PRN (14:03)
--- NOTE | 2019-11-29 17:15 | NUR ---
Warming Measures applied. Patient currently has temp of 96.8 , warming measures in place.
--- NOTE | 2019-11-29 18:00 | NUR ---
TUBE FEEDINGS ON HOLD GASTRIC RESIDUAL NOTED AT 80ML/HR. TF HELD AT THIS TIME. ASPIRATION PRECAUTIONS IN PLACE.
--- NOTE | 2019-11-29 18:03 | NUR ---
PAGED EKG DUE TO ABNORMAL RHYTHM. EKG READING INTRAVENTRICULAR BLOCK. PAGED TO NOTIFY, NEW ORDER FOR [facility]. ELEVATOR OPERATOR FREIGHT AWARE. RESIDUE FURNACE OPERATOR TO BE CALLED IN FOR 1900.
--- NOTE | 2019-11-29 18:26 | NUR ---
WRONG PATIENT Addendum: 11/29/19 at 1930 by Glenys Vance RN RE: [id number] NOTE.
--- NOTE | 2019-11-29 18:44 | NUR ---
MD AT BEDSIDE. SECOND MD SIGNATURE OBTAINED FOR HEMODIALYSIS CATHETER. MD UPDATED. SEE NEW ORDERS.
--- NOTE | 2019-11-29 19:00 | NUR ---
PAGED DR. BROCK CALLED TO VERIFY IF HE IS ABLE TO PLACE JANI IN A.M. AWAITING CALLBACK. IF MD UNABLE TO RADIOLOGY CONSULT IN PLACE.
[2019-11-30] VITALS (94 sets, daily range): BP systolic 64–154; BP diastolic 36–126
[2019-11-30] MEDS: ceFAZolin 1GM/50ML 50 ML IV SCH ×2 (01:02→12:19)
[2019-11-30] MEDS: PANTOPRAZOLE 40mg/50ML NS AE 50 ML IV SCH ×5 (02:30→22:30)
[2019-11-30 04:23] LABS: Hematocrit 25.7 % (41.0-53.0); Hemoglobin 8.8 g/dL (13.5-17.5)
[2019-11-30] MEDS: METOPROLOL TARTRATE 1MG/1ML-5ML VIAL IV SCH (06:00)
[2019-11-30] MEDS: MIDODRINE HCL 10 MG TAB PO SCH ×3 (06:17→21:40)
[2019-11-30] MEDS: SUCRALFATE 1 GM/10 ML ORAL SUSP PO SCH ×4 (06:18→21:42)
[2019-11-30] MEDS ORDERED: SODIUM CHL 0.9% 1000 ML BAG XX ONE (07:00)
[2019-11-30] MEDS ORDERED: ALBUMIN 25% 100 ML IV PRN (07:00)
[2019-11-30] MEDS: CALCIUM ACETATE 667 MG CAP PO SCH ×3 (08:00→18:00)
[2019-11-30] MEDS: NOREPINEPHRINE BITARTRATE 16 MG in SODIUM CHL 0.9% 250 ML IV SCH ×2 (08:45→20:00)
[2019-11-30 09:21] LABS: INR 1.63 (0.9-1.15)
[2019-11-30 09:32] LABS: Anion Gap 14 (5-15); BUN/Creatinine Ratio 27.6; Calcium 7.7 mg/dL (8.5-10.1); Carbon Dioxide 20 mmol/L (21-32); Chloride 106 mmol/L (98-107); GFR African American 14 mL/min; GFR Non-African American 11 mL/min; Glucose 109 mg/dL (74-106); Potassium 4.1 mmol/L (3.5-5.1); Sodium 140 mmol/L (136-145)
[2019-11-30 09:35] LABS: Alanine Aminotransferase < 6 U/L (16-61); Alkaline Phosphatase 239 U/L (45-117); Aspartate Aminotransferase 135 U/L (15-37); Bilirubin, Total 13.9 mg/dL (0.2-1.0); Total Protein 4.7 g/dL (6.4-8.2)
[2019-11-30 09:45] LABS: Blood Urea Nitrogen 142 mg/dL (7-18)
[2019-11-30] MEDS: CALCITRIOL 0.25 MCG CAP PO SCH (10:00)
[2019-11-30] MEDS: SODIUM CHLOR 0.9% PF (SALINE LOCK) 10ML VIAL/SYR IV SCH ×2 (10:33→21:41)
[2019-11-30] MEDS: ALLOPURINOL 100 MG TAB PO SCH (10:33)
[2019-11-30] MEDS ORDERED: HEPARIN 1,000 UNITS/ml 1ML VIAL ONE (13:34)
[2019-11-30] MEDS ORDERED: LIDOCAINE 1% (LOCAL ANESTH.) PF 5ml SDV ONE (13:55)
[2019-11-30] MEDS: DOPamine 1600MCG/ML D5W 250 ML IV SCH (14:55)
--- NOTE | 2019-11-30 15:01 | NUR ---
Hemodialysis nurse at bedside.
[2019-11-30] MEDS ORDERED: PHENYLEPHRINE IV 250 ML IV ONE (15:18)
--- NOTE | 2019-11-30 15:19 | NUR ---
Dopamine stopped. Patient HR is 140-160's Afib with RVR noted. Dr. Joshua and Dr. Posey paged, awaiting call back.
--- NOTE | 2019-11-30 15:20 | NUR ---
Respiratory note: PT ASSESSED FOR PRN TX. PT FOUND ON ROOM AIR SP02 94% AND BREATH SOUNDS ARE CLEAR. NO TX INDICATED AT THIS TIME.
[2019-11-30] MEDS ORDERED: DIGOXIN (250MCG/ML) 2 ML AMPULE ONE ×2 (15:27→15:30)
--- NOTE | 2019-11-30 15:29 | NUR ---
Orders received to consult Dr. Tipton regarding patient's HR. Dr. Tipton notified regarding patient's HR, orders received.
--- NOTE | 2019-11-30 15:29 | NUR ---
Dr. Posey notified regarding patient's HR, orders received.
[2019-11-30] MEDS: PHENYLEPHRINE IV 250 ML IV SCH ×2 (15:35→21:42)
[2019-11-30] MEDS ORDERED: DIGOXIN (250MCG/ML) 2 ML AMPULE IV ONE (15:45)
[2019-11-30] MEDS ORDERED: AMIODARONE HCL 150 MG in D5W 5% 100 ML IV ONE (15:45)
[2019-11-30] MEDS ORDERED: AMIODARONE 450mg/250ml AE 250 ML IV SCH (15:46)
[2019-11-30] MEDS: VASOPRESSIN 50 UNITS in D5W 5% 247.5 ML IV SCH (17:14)
--- NOTE | 2019-11-30 17:15 | NUR ---
Per Dr. Joshua may start Vasopressin at 0.07units/min to keep MAP >65. BP 64/40
--- NOTE | 2019-11-30 17:50 | NUR ---
Dr. Posey at bedside.
--- NOTE | 2019-11-30 18:53 | NUR ---
Complete bath provided. Linens and gown changed.
[2019-11-30] MEDS: levoFLOXacin 250MG 50 ML IV SCH (19:18)
--- NOTE | 2019-11-30 20:00 | NUR ---
Opening Shift Note: Patient is A&Ox1-2, confusion present. Currently on 4 LO2 via NC; bedrest; pain level 10/10 with movement based on patient moaning and screaming. Patient is a [employer] inmate: two guards present at bedside. Bed locked in lowest position, side rails up x2, call light within reach, and bed alarm on for patient safety. IV: PICC triple lumen in RUE inserted on 11/14/19: Currently running Levophed @ 30; Andrei @ 180; Vasopressin @ 0.07; Protonix @ 10 ml/hr. Bumex and amiodarone was held by day shift RN related to low BP's during dialysis and patient HR stable in the low 100s Afib. Right groin sandi cath inserted on 11/30/[address] Ochoa; dialysis 11/30/19 with UF only. Left nare NGT with Nephro @ 30 ml/hr: residual over 60 ml; held at this time. York inserted on 11/09/19: minimal output. Multiple skin issues: see charting. Echo pending for previous Afib RVR. Patient unable to understand plan of care at this time. Will continue to round/reposition/perform oral care Q2H/prn
[2019-11-30] MEDS ORDERED: EPOETIN ALFA 10,000 UNIT/1 ML VIAL SC ONE (21:00)
[2019-11-30] MEDS: BUMETANIDE INJECTION 25 MG in GIVE UN-DILUTED 0 ML IV SCH (21:41)
[2019-11-30] MEDS: AMIODARONE 450mg/250ml AE 250 ML IV SCH (21:41)
[2019-12-01] VITALS (93 sets, daily range): BP systolic 75–182; BP diastolic 25–144
--- NOTE | 2019-12-01 | NUR ---
Bumex drip restarted: BP stable in 140s. Will continue to titrate vasopressin down.
[2019-12-01] MEDS: ceFAZolin 1GM/50ML 50 ML IV SCH ×2 (01:00→12:52)
[2019-12-01] MEDS: PANTOPRAZOLE 40mg/50ML NS AE 50 ML IV SCH ×5 (03:30→23:30)
[2019-12-01] MEDS: SUCRALFATE 1 GM/10 ML ORAL SUSP PO SCH ×4 (05:52→21:53)
[2019-12-01] MEDS: MIDODRINE HCL 10 MG TAB PO SCH ×3 (05:52→17:46)
--- NOTE | 2019-12-01 07:18 | NUR ---
SHIFT OPENING NOTE REPORT RECEIVED FROM [facility] RN
[2019-12-01] MEDS: CALCIUM ACETATE 667 MG CAP PO SCH ×3 (08:19→17:46)
[2019-12-01] MEDS: PHENYLEPHRINE IV 250 ML IV SCH (08:20)
[2019-12-01] MEDS: SODIUM CHLOR 0.9% PF (SALINE LOCK) 10ML VIAL/SYR IV SCH ×2 (09:35→21:53)
[2019-12-01] MEDS: PHENYLEPHRINE INJ 40 MG in SODIUM CHL 0.9% 250 ML IV SCH ×4 (09:36→21:00)
[2019-12-01] MEDS: ALLOPURINOL 100 MG TAB PO SCH (09:36)
[2019-12-01] MEDS: CALCITRIOL 0.25 MCG CAP PO SCH (09:36)
--- NOTE | 2019-12-01 10:00 | NUR ---
PATIENT REPOSITIONED FOR SKIN INTEGRITY AND COMFORT
--- NOTE | 2019-12-01 11:10 | NUR ---
ECHO AT BEDSIDE
[2019-12-01] MEDS: AMIODARONE 450mg/250ml AE 250 ML IV SCH (12:46)
[2019-12-01] MEDS: NOREPINEPHRINE BITARTRATE 16 MG in SODIUM CHL 0.9% 250 ML IV SCH ×2 (13:03→21:00)
--- NOTE | 2019-12-01 13:08 | NUR ---
PARTIAL LINEN CHANGE PERFORMED AT THIS TIME
[2019-12-01] MEDS: DOPamine 1600MCG/ML D5W 250 ML IV SCH (13:30)
--- NOTE | 2019-12-01 15:47 | NUR ---
ORAL CARE PATIENT BITING AT ORAL CARE WAND WHEN SUCTIONING PATIENT. WILL CONTINUE TO TRY ORAL CARE
[2019-12-01] MEDS: OCTREOTIDE ACETATE 100 MCG/ML VL SUBCUT SCH ×2 (16:29→21:53)
[2019-12-01] MEDS: BUMETANIDE INJECTION 25 MG in GIVE UN-DILUTED 0 ML IV SCH (17:15)
--- NOTE | 2019-12-01 17:21 | NUR ---
SKIN INTEGRITY OPTIFOAM DRESSINGS PLACED ON PATIENTS LEFT WRIST AND LEFT ANKLE TO PROTECT AGAINST PRESSURE ULCER FROM HAND CUFF AND LEG CUFFS
[2019-12-01] MEDS: VASOPRESSIN 50 UNITS in D5W 5% 247.5 ML IV SCH (19:00)
--- NOTE | 2019-12-01 19:10 | NUR ---
OPENING NOTE RECEIVED REPORT FROM WILD TORRES. PATIENT ON 2L NC STATING >95% SPO2 ON BEDSIDE MONITOR. AFIB 100'S ON BEDSIDE MONITOR, WITH BP 100'S SYSTOLIC MAX ON VICENTA AND LEVO. LEFT NGT PATENT TO GRAVITY. RIGHT UPPER ARM PICC LINE CDI. BASS TO GRAVITY, PATENT. MULTIPLE SKIN ISSUES, FOR MORE INFORMATION SEE INTERVENTIONS. FOR GTTS AND THEIR TITRATIONS SEE IV SPREAD SHEET. POSITIONED FOR COMFORT. ALL FALL AND SAFETY PRECAUTIONS IN PLACE. TWO FEDERAL GUARDS AT BEDSIDE.
[2019-12-02] VITALS (88 sets, daily range): BP systolic 53–136; BP diastolic 33–111
--- NOTE | 2019-12-02 | NUR ---
BED BATH COMPLETED SKIN ASSESSED AND NO NEW BREAK DOWN NOTED, WOUND CARE PROVIDED FOR WEEPING WOUNDS. COMPLETE LINEN CHANGE PROVIDED
[2019-12-02] MEDS: ceFAZolin 1GM/50ML 50 ML IV SCH ×2 (01:05→13:27)
[2019-12-02] MEDS: AMIODARONE 450mg/250ml AE 250 ML IV SCH ×2 (03:46→18:46)
[2019-12-02 04:27] LABS: Hematocrit 25.7 % (41.0-53.0); Hemoglobin 8.6 g/dL (13.5-17.5); Mean Corpuscular Hemoglobin 32.8 pg (28.0-32.0); Mean Corpuscular Hgb Conc. 33.6 g/dL (32.0-36.0); Mean Corpuscular Volume 97.5 fL (80.0-100.0); Platelet Count (auto) 140 10^3/uL (140-450); Red Blood Cells 2.64 10^6/uL (4.5-5.90); Red Cell Distribution Width 17.7 % (11.8-14.3); White Blood Cell 8.6 10^3/uL (4.4-10.8)
[2019-12-02 04:40] LABS: Albumin 1.9 g/dL (3.4-5.0); Anion Gap 13 (5-15); Calcium 8.1 mg/dL (8.5-10.1); Carbon Dioxide 20 mmol/L (21-32); Chloride 108 mmol/L (98-107); Glucose 89 mg/dL (74-106); Potassium 3.9 mmol/L (3.5-5.1); Sodium 141 mmol/L (136-145)
[2019-12-02 04:45] LABS: Alanine Aminotransferase < 6 U/L (16-61); Alkaline Phosphatase 211 U/L (45-117); Aspartate Aminotransferase 147 U/L (15-37); BUN/Creatinine Ratio 27.2; Bilirubin, Total 14.6 mg/dL (0.2-1.0); GFR African American 16 mL/min; GFR Non-African American 14 mL/min; Total Protein 4.5 g/dL (6.4-8.2)
[2019-12-02 04:48] LABS: Band Neutrophils % (manual) 0; Basophils % (manual) 0 (0.0-2.0); Blast Cells 0; Eosinophils % (manual) 0 (0-7); Metamyelocytes % 0; Myelocytes % 0; Promyelocytes % 0; Reactive Lymphocytes 0
[2019-12-02 04:59] LABS: Blood Urea Nitrogen 121 mg/dL (7-18)
[2019-12-02] MEDS: PANTOPRAZOLE 40mg/50ML NS AE 50 ML IV SCH ×4 (05:07→17:56)
[2019-12-02] MEDS: HYDROcodone-ACET 10/325MG TAB PO PRN ×2 (05:45→11:50)
[2019-12-02] MEDS: PHENYLEPHRINE INJ 40 MG in SODIUM CHL 0.9% 250 ML IV SCH ×7 (05:45→16:58)
[2019-12-02] MEDS: SUCRALFATE 1 GM/10 ML ORAL SUSP PO SCH ×4 (06:02→22:26)
[2019-12-02] MEDS: MIDODRINE HCL 10 MG TAB PO SCH ×3 (06:02→17:56)
[2019-12-02] MEDS: OCTREOTIDE ACETATE 100 MCG/ML VL SUBCUT SCH ×3 (06:02→22:26)
[2019-12-02 06:20] LABS: Lymphocytes % (manual) 9 (10.0-50.0); Monocytes % (manual) 7 (0-12)
--- NOTE | 2019-12-02 07:21 | NUR ---
REPORT RECEIVED FROM DIRECTOR INFORMATION RN
[2019-12-02] MEDS: CALCIUM ACETATE 667 MG CAP PO SCH ×3 (07:39→17:56)
[2019-12-02] MEDS ORDERED: ALBUMIN 25% 50 ML IV ONE (08:45)
[2019-12-02] MEDS ORDERED: HEPARIN 1,000 UNITS/ml 1ML VIAL IV ONE (08:45)
--- NOTE | 2019-12-02 08:45 | NUR ---
DIALYSIS NURSE AT BEDSIDE
[2019-12-02] MEDS ORDERED: ALBUMIN 25% 50 ML IV SCH (09:00)
[2019-12-02] MEDS: ALBUMIN 25% 100 ML IV SCH ×3 (09:22→11:23)
[2019-12-02] MEDS: ALLOPURINOL 100 MG TAB PO SCH (09:29)
[2019-12-02] MEDS: CALCITRIOL 0.25 MCG CAP PO SCH (09:29)
[2019-12-02] MEDS: SODIUM CHLOR 0.9% PF (SALINE LOCK) 10ML VIAL/SYR IV SCH ×2 (09:29→22:26)
--- NOTE | 2019-12-02 10:02 | NUR ---
DR. SHARMA AT BEDSIDE
--- NOTE | 2019-12-02 10:35 | NUR ---
DIALYSIS DISCONTINUED PATIENT DID NOT TOLERATED IT HEMODYNAMICALLY
--- NOTE | 2019-12-02 10:45 | NUR ---
Hold PT today per nursing.
--- NOTE | 2019-12-02 11:18 | NUR ---
DR. CHAVEZ AT BEDSIDE
[2019-12-02] MEDS: DOPamine 1600MCG/ML D5W 250 ML IV SCH (13:30)
[2019-12-02] MEDS: NOREPINEPHRINE BITARTRATE 16 MG in SODIUM CHL 0.9% 250 ML IV SCH ×2 (13:35→22:00)
--- NOTE | 2019-12-02 15:20 | NUR ---
Nutrition Follow up Notes Wt.: 110.1 kg pt sleeping with guards by bedside. per RN pt is NPO on EN support with Nephro carb steady @ 30 ml/hr providing 1296 kcal and 58g. pt with adequate EN support as it meets 49-59% kcals and 39-48% proteins. pt last HD was on 12/01 Est Energy needs 2820-0594 kcal (25-30 kcal/kg IBW 87.7) Est protein needs 122-150(1.2-1.5g/kg BW, CHANEL/CKD III with dialysis) Will reassess prn. Labs: BUN 121H, Creat 4.45H Ca 8.1L, Alb 1.9L Skin: BS 13, high risk, pt with multiple wounds. Please refer to wound assessment report for full details. GI: Pt had 1 BM 11/27 per coat operator insulator, Gastric Residual 150 ml 11/29 PES: Altered nutrition related lab values r/t current medical condition aeb elev RFTs PES Altered: Overweight r/t excessive PO intake aeb 117% of IBW and BMI of 28.2 which is overweight Will continue to monitor PO intake, skin status, pertinent labs and weight trend. F/u in 2-3 days. Rec.: 1.) Advance EN support with Nepro Carb Steady at 60 ml/hr per MD approval, with the addition of 1 prostat if pt continues on HD. . 2) advance diet as medically feasible. 3) consider nephrovite and Vit C bid. 4) continue current plan of care.
--- NOTE | 2019-12-02 16:13 | NUR ---
PARTIAL LINEN AND GOWN CHANGED AT THIS TIME
[2019-12-02] MEDS: BUMETANIDE INJECTION 25 MG in GIVE UN-DILUTED 0 ML IV SCH (17:15)
[2019-12-02] MEDS: levoFLOXacin 250MG 50 ML IV SCH (17:56)
--- NOTE | 2019-12-02 18:05 | NUR ---
ORAL CARE ATTEMPTED ORAL CARE. PATIENT CLAMPING DOWN ON TUBE NOT ALLOWING CLEANSING OF MOUTH. PATIENT EDUCATED WITH MINIMAL UNDERSTANDING
--- NOTE | 2019-12-02 19:00 | NUR ---
Opening shift note: Report received from material handler 2nd shift RN. Patient currently only alert to self and moans when moved or touched. Patient currently resting in bed comfortably at this time with no s/s of discomfort or distress.
--- NOTE | 2019-12-02 22:00 | NUR ---
ORAL CARE: PATIENT REFUSES ORAL CARE AND SHUTS HIS MOUTH CLOSED AND BITES ON YANKER WHEN ORAL CARE IS ATTEMPTED TO BE PROVIDED. RN WILL CONTINUE TO ATTEMPT TO PROVIDE ORAL CARE AND SUCTIONING TO PATIENT BUT PATIENT CONTINUES TO REFUSE AT THIS TIME.
[2019-12-02] MEDS: VASOPRESSIN 50 UNITS in D5W 5% 247.5 ML IV SCH (23:50)
--- NOTE | 2019-12-02 23:50 | NUR ---
Patient started on Vassopressin. Patient was noted with a blood pressure of 72/60 and already on max with Levo and Andrei.
[2019-12-03] VITALS (79 sets, daily range): BP systolic 62–169; BP diastolic 21–145
[2019-12-03] MEDS: PANTOPRAZOLE 40mg/50ML NS AE 50 ML IV SCH ×5 (00:03→17:34)
[2019-12-03] MEDS: PHENYLEPHRINE INJ 40 MG in SODIUM CHL 0.9% 250 ML IV SCH ×4 (01:00→17:34)
[2019-12-03] MEDS: ceFAZolin 1GM/50ML 50 ML IV SCH ×2 (01:00→12:33)
[2019-12-03 04:40] LABS: Basophils # (auto) 0 10 ^3/uL (0-0.2); Basophils % (auto) 0.3 % (0.0-2.0); Eosinophils # (auto) 0 10 ^3/uL (0-0.8); Eosinophils % (auto) 0.5 % (0.0-7.0); Hematocrit 21.4 % (41.0-53.0); Hemoglobin 7.1 g/dL (13.5-17.5); Lymphocytes # (auto) 0.7 10 ^3/uL (0.4-5.4); Lymphocytes % (auto) 8.5 % (10.0-50.0); Mean Corpuscular Hemoglobin 33.2 pg (28.0-32.0); Mean Corpuscular Hgb Conc. 33.4 g/dL (32.0-36.0); Mean Corpuscular Volume 99.2 fL (80.0-100.0); Monocytes # (auto) 0.5 10 ^3/uL (0-1.3); Monocytes % (auto) 6.8 % (0.0-12.0); Neutrophils # (auto) 6.5 10 ^3/uL (1.6-8.6); Neutrophils % (auto) 83.9 % (37.0-80.0); Nucleated Red Blood Cells % 1.9 %; Platelet Count (auto) 81 10^3/uL (140-450); Red Blood Cells 2.15 10^6/uL (4.5-5.90); Red Cell Distribution Width 19.6 % (11.8-14.3); White Blood Cell 7.7 10^3/uL (4.4-10.8)
[2019-12-03 04:53] LABS: Albumin 2.3 g/dL (3.4-5.0); Anion Gap 11 (5-15); Carbon Dioxide 21 mmol/L (21-32); Chloride 110 mmol/L (98-107); Glucose 90 mg/dL (74-106); Potassium 3.5 mmol/L (3.5-5.1); Sodium 142 mmol/L (136-145)
[2019-12-03 04:57] LABS: Alanine Aminotransferase < 6 U/L (16-61); Alkaline Phosphatase 152 U/L (45-117); Aspartate Aminotransferase 99 U/L (15-37); BUN/Creatinine Ratio 25.4; Bilirubin, Total 14.6 mg/dL (0.2-1.0); GFR African American 18 mL/min; GFR Non-African American 15 mL/min; Total Protein 4.4 g/dL (6.4-8.2)
[2019-12-03 05:05] LABS: Blood Urea Nitrogen 103 mg/dL (7-18)
[2019-12-03] MEDS: MIDODRINE HCL 10 MG TAB PO SCH ×3 (06:00→17:13)
[2019-12-03] MEDS: OCTREOTIDE ACETATE 100 MCG/ML VL SUBCUT SCH ×3 (06:00→22:00)
--- NOTE | 2019-12-03 06:30 | NUR ---
Pharmacy called to make aware of no more Bumex in pyxis and patient's Bumex currently on hold. Pharmacy to make Bumex and send to floor.
[2019-12-03] MEDS: SUCRALFATE 1 GM/10 ML ORAL SUSP PO SCH ×4 (06:32→22:00)
[2019-12-03] MEDS ORDERED: NOREPINEPHRINE 8 MG/250ML KIT 250 ML IV ONE (06:40)
--- NOTE | 2019-12-03 07:14 | NUR ---
REPORT RECEIVED FROM TOBACCO FEEDER CATCHER RN
[2019-12-03] MEDS: CALCIUM ACETATE 667 MG CAP PO SCH ×3 (07:40→17:13)
--- NOTE | 2019-12-03 07:58 | NUR ---
ORAL CARE ATTEMPTED ORAL CARE AT THIS TIME. PATIENT BITES DOWN NOT ALLOWING SUCTION WAND TO ENTER MOUTH
--- NOTE | 2019-12-03 08:51 | NUR ---
HOLD P.T. BECAUSE OF LOW BLOOD PRESSURE.
[2019-12-03] MEDS: HYDROcodone-ACET 10/325MG TAB PO PRN (09:38)
[2019-12-03] MEDS: ALLOPURINOL 100 MG TAB PO SCH (09:38)
[2019-12-03] MEDS: CALCITRIOL 0.25 MCG CAP PO SCH (09:40)
[2019-12-03] MEDS: SODIUM CHLOR 0.9% PF (SALINE LOCK) 10ML VIAL/SYR IV SCH ×2 (09:40→22:00)
[2019-12-03] MEDS: AMIODARONE 450mg/250ml AE 250 ML IV SCH (09:46)
--- NOTE | 2019-12-03 10:00 | NUR ---
ATTEMPTED ORAL CARE PATIENT CONTINUES TO BITE DOWN ON SUCTION WAND, PATIENT EDUCATED ON ORAL CARE AND CLEARING SECRETIONS WITH MINIMAL UNDERSTANDING
[2019-12-03] MEDS: VASOPRESSIN 50 UNITS in D5W 5% 247.5 ML IV SCH (13:25)
[2019-12-03] MEDS: DOPamine 1600MCG/ML D5W 250 ML IV SCH (13:30)
[2019-12-03] MEDS: NOREPINEPHRINE BITARTRATE 16 MG in SODIUM CHL 0.9% 250 ML IV SCH ×2 (15:34→23:03)
--- NOTE | 2019-12-03 16:57 | NUR ---
LARGE BOWEL MOVEMENT PATIENT CLEANSED AND COMPLETE LINEN CHANGE PERFORMED AT THIS TIME
[2019-12-03] MEDS: BUMETANIDE INJECTION 25 MG in GIVE UN-DILUTED 0 ML IV SCH (17:15)
--- NOTE | 2019-12-03 19:00 | NUR ---
Opening shift note: Report received from [facility] shift lead RN. Patient currently only moaning when moved or touched. Patient opens eyes when spoken to but most only moans when touched or turned. Patient currently resting in bed comfortably at this time with no s/s of discomfort or distress.
[2019-12-04] VITALS (41 sets, daily range): BP systolic 40–129; BP diastolic 13–59
[2019-12-04] MEDS: AMIODARONE 450mg/250ml AE 250 ML IV SCH (00:46)
[2019-12-04] MEDS: PHENYLEPHRINE INJ 40 MG in SODIUM CHL 0.9% 250 ML IV SCH ×3 (01:00→10:24)
[2019-12-04] MEDS: VASOPRESSIN 50 UNITS in D5W 5% 247.5 ML IV SCH (01:00)
[2019-12-04] MEDS: ceFAZolin 1GM/50ML 50 ML IV SCH ×2 (01:00→14:47)
[2019-12-04] MEDS: PANTOPRAZOLE 40mg/50ML NS AE 50 ML IV SCH ×2 (01:30→06:18)
--- NOTE | 2019-12-04 03:30 | NUR ---
BM: Patient had a small BM and excessive weeping of generalized skin. Patient was given a bath and complete linen change was provided. Patient's blood pressure decreased to 39/22 during bath. Patient did not tolerate bath or turning well. Patient was repositioned and provided comfort after bed bath and linen change.
[2019-12-04 04:21] LABS: Hemoglobin 7.2 g/dL (13.5-17.5); Platelet Count (auto) 80 10^3/uL (140-450)
[2019-12-04 04:23] LABS: Hematocrit 22.1 % (41.0-53.0); Mean Corpuscular Hemoglobin 33.2 pg (28.0-32.0); Mean Corpuscular Hgb Conc. 32.8 g/dL (32.0-36.0); Mean Corpuscular Volume 101.1 fL (80.0-100.0); Red Blood Cells 2.19 10^6/uL (4.5-5.90); White Blood Cell 9.8 10^3/uL (4.4-10.8)
[2019-12-04 04:34] LABS: Red Cell Distribution Width 20.2 % (11.8-14.3)
[2019-12-04 04:36] LABS: Band Neutrophils % (manual) 0; Basophils % (manual) 0 (0.0-2.0); Blast Cells 0; Eosinophils % (manual) 0 (0-7); Metamyelocytes % 0; Myelocytes % 0; Promyelocytes % 0; Reactive Lymphocytes 0
[2019-12-04 04:38] LABS: Albumin 1.9 g/dL (3.4-5.0); Anion Gap 12 (5-15); Calcium 7.8 mg/dL (8.5-10.1); Carbon Dioxide 19 mmol/L (21-32); Chloride 110 mmol/L (98-107); Glucose 136 mg/dL (74-106); Potassium 3.4 mmol/L (3.5-5.1); Sodium 141 mmol/L (136-145)
[2019-12-04 04:42] LABS: Alanine Aminotransferase < 6 U/L (16-61); Alkaline Phosphatase 167 U/L (45-117); Aspartate Aminotransferase 97 U/L (15-37); BUN/Creatinine Ratio 24.7; Bilirubin, Total 13.9 mg/dL (0.2-1.0); GFR African American 18 mL/min; GFR Non-African American 15 mL/min; Total Protein 4.3 g/dL (6.4-8.2)
[2019-12-04 04:50] LABS: Blood Urea Nitrogen 102 mg/dL (7-18)
[2019-12-04] MEDS ORDERED: PHENYLEPHRINE HCL 10 MG/ML VL ONE (04:53)
[2019-12-04] MEDS: OCTREOTIDE ACETATE 100 MCG/ML VL SUBCUT SCH ×2 (06:11→14:47)
[2019-12-04] MEDS: MIDODRINE HCL 10 MG TAB PO SCH ×2 (06:11→12:00)
[2019-12-04] MEDS: SUCRALFATE 1 GM/10 ML ORAL SUSP PO SCH ×2 (06:12→11:30)
[2019-12-04 07:13] LABS: Lymphocytes % (manual) 8 (10.0-50.0); Monocytes % (manual) 5 (0-12)
--- NOTE | 2019-12-04 09:00 | NUR ---
Pt not seen, per RN he is on comfort measures. Addendum: 12/04/19 at 1220 by Jac Shine PTA Amended: Links added.
--- NOTE | 2019-12-04 09:30 | NUR ---
LINEN CHANGE Partial linen change done secondary to patient weeping throughout entire body. Patient tolerated well.
[2019-12-04] MEDS: CALCITRIOL 0.25 MCG CAP PO SCH (10:00)
[2019-12-04] MEDS ORDERED: POTASSIUM CHL 20 Meq TABLET PO ONE (10:15)
[2019-12-04] MEDS: NOREPINEPHRINE BITARTRATE 16 MG in SODIUM CHL 0.9% 250 ML IV SCH (10:25)
--- NOTE | 2019-12-04 10:30 | NUR ---
ELIMINATION Patient had a large bowel movement, lainey care provided and partial linen change done with the assistance of Roya ARROYO and Britt TORRES. Patient tolerated well.
[2019-12-04] MEDS: CALCIUM ACETATE 667 MG CAP PO SCH ×2 (10:37→12:00)
[2019-12-04] MEDS: ALLOPURINOL 100 MG TAB PO SCH (10:38)
[2019-12-04] MEDS: SODIUM CHLOR 0.9% PF (SALINE LOCK) 10ML VIAL/SYR IV SCH (10:38)
--- NOTE | 2019-12-04 11:55 | NUR ---
Nutrition Follow up Notes Wt.: 117.8 kg pt sleeping with guards by bedside. per RN pt is NPO on EN support with Nephro carb steady @ 30 ml/hr providing 1296 kcal and 58g. pt with adequate EN support as it meets 49-59% kcals and 39-48% proteins. pt last HD was on 12/01 Est Energy needs 0555-3226 kcal (25-30 kcal/kg IBW 87.7) Est protein needs 122-150(1.2-1.5g/kg BW, CHANEL/CKD III with dialysis) Will reassess prn. Labs: BUN 102 H, CREAT 4.13 H, GLU 136 H, CA 7.6 L, ALB 1.9 L, ROEL 13.9 H Skin: BS 12, high risk, pt with multiple wounds. Please refer to wound assessment report for full details. GI: Pt had 1 BM 12/02 per advertising job titles, Gastric Residual 150 ml 11/29 PES: Altered nutrition related lab values r/t current medical condition aeb elev RFTs PES Altered: Overweight r/t excessive PO intake aeb 117% of IBW and BMI of 28.2 which is overweight Will continue to monitor PO intake, skin status, pertinent labs and weight trend. F/u in 2-3 days. Rec.: 1.) Advance EN support with Nepro Carb Steady at 60 ml/hr per MD approval, with the addition of 1 prostat if pt continues on HD. . 2) advance diet as medically feasible. 3) consider nephrovite and Vit C bid. 4) continue current plan of care.
--- NOTE | 2019-12-04 12:00 | NUR ---
ORAL CARE Attempted to perform oral care but patient closes mouth and bites of colin.
--- NOTE | 2019-12-04 13:15 | NUR ---
MD Dr. Posey at bedside updated on patient condition with new orders, MD to input into system.
[2019-12-04] MEDS: DOPamine 1600MCG/ML D5W 250 ML IV SCH (13:30)
[2019-12-04] MEDS ORDERED: SODIUM BICARBONATE 650 MG TAB PO SCH (14:00)
--- NOTE | 2019-12-04 15:13 | NUR ---
MD Dr. Posey called at [phone] left message with [facility] office cashier to call this RN back when available. Awaiting for MD to call back.
--- NOTE | 2019-12-04 15:15 | NUR ---
HOSPITALIST Hospitalist paged to come and pronounce patient. Awaiting for hospitalist to come by or call this RN.
--- NOTE | 2019-12-04 15:45 | NUR ---
NURSES EDUCATOR KILO Camp at bedside to pronounce patient at this time.
--- NOTE | 2019-12-04 16:10 | NUR ---
MD Dr. Posey office called second time was able to speak to Dr. Posey. aware of .
--- NOTE | 2019-12-04 16:15 | NUR ---
CORONERS OFFICE Called coroners office and spoke to [facility] " will call you soon."
--- NOTE | 2019-12-04 16:20 | NUR ---
[facility] Called [facility] and spoke to Jah who states " a life assurance representative will call you back for more information." referral number [id number]
--- NOTE | 2019-12-04 16:50 | NUR ---
[facility] Received phone call from [facility] spoke to Carol schwab per facility protocol. REFERENCE NUMBER: [id number]
--- NOTE | 2019-12-04 17:42 | NUR ---
CORONERS OFFICE Coroners investigation officer called. Notified that this is a prisoner from [facility] here in [place]. Information given to model and pattern supervisor then asked to speak to office at bedside. Ticket Chopper Assembler was unhappy with answers from officer Yadiel and asked him for he's supervisors number.
[2019-12-04] MEDS ORDERED: BUMETANIDE 2.5mg/10ml (0.25 mg/ml) INJ IV SCH (18:00)
--- NOTE | 2019-12-04 18:10 | NUR ---
RELEASE OF BODY Per officer Yadiel liu released body to his supervisory it specialist at his facility and . Per OFFICER Yadiel design and sales consultant will be coming to continuous pickling line pickler patient due to patient a prisoner.
--- NOTE | 2019-12-04 19:00 | NUR ---
Post mortem care provided with assistance of day shift RN.
--- NOTE | 2019-12-04 21:41 | NUR ---
RN placed a call to administrative assistant data entry office for an ETA of citrus picker for the patient.
--- NOTE | 2019-12-04 21:49 | NUR ---
Roof Bolter Operator call back: Roof Bolter Operator called back and RN spoke with Manny who informed me that the hospital has to contact the longterm who has a contracted mortuary who will merchandise pickup/receiving associate the .
--- NOTE | 2019-12-04 22:45 | NUR ---
Patient transferred to in house mortuary.
== END 2019-12-04 23:09 | disposition expired | DRG 871 ==
LOC: EDBD 11:35 → ER 11:35 → EEVIPCON 11:35 → TELE 11:36 → ICU WEST 20:02
PROVIDERS: ADMIT Internal Medicine; ATTEND Internal Medicine
PROC: 02HV33Z Insertion of Infusion Device into Superior Vena Cava, Percutaneous Approach (ICD-10-PCS; 2019-11-14)
PROC: 5A1D70Z Performance of Urinary Filtration, Intermittent, Less than 6 Hours Per Day (ICD-10-PCS; principal; 2019-11-15)
PROC: 5A1935Z Respiratory Ventilation, Less than 24 Consecutive Hours (ICD-10-PCS; 2019-11-16)
PROC: 5A1D70Z Performance of Urinary Filtration, Intermittent, Less than 6 Hours Per Day (ICD-10-PCS; 2019-11-18)
PROC: 5A09357 Assistance with Respiratory Ventilation, Less than 24 Consecutive Hours, Continuous Positive Airway Pressure (ICD-10-PCS; 2019-11-18)
PROC: 5A1935Z Respiratory Ventilation, Less than 24 Consecutive Hours (ICD-10-PCS; 2019-11-18)
PROC: 5A1D70Z Performance of Urinary Filtration, Intermittent, Less than 6 Hours Per Day (ICD-10-PCS; 2019-11-19)
PROC: 5A1D70Z Performance of Urinary Filtration, Intermittent, Less than 6 Hours Per Day (ICD-10-PCS; 2019-11-21)
PROC: 5A1D70Z Performance of Urinary Filtration, Intermittent, Less than 6 Hours Per Day (ICD-10-PCS; 2019-11-22)
PROC: 30233K1 Transfusion of Nonautologous Frozen Plasma into Peripheral Vein, Percutaneous Approach (ICD-10-PCS; 2019-11-22)
PROC: 30233R1 Transfusion of Nonautologous Platelets into Peripheral Vein, Percutaneous Approach (ICD-10-PCS; 2019-11-22)
PROC: 0DJ08ZZ Inspection of Upper Intestinal Tract, Via Natural or Artificial Opening Endoscopic (ICD-10-PCS; 2019-11-22)
PROC: 30233N1 Transfusion of Nonautologous Red Blood Cells into Peripheral Vein, Percutaneous Approach (ICD-10-PCS; 2019-11-23)
PROC: 5A1D70Z Performance of Urinary Filtration, Intermittent, Less than 6 Hours Per Day (ICD-10-PCS; 2019-11-30)
DX: A41.9 Sepsis, unspecified organism (principal); R65.21 Severe sepsis with septic shock; N17.0 Acute kidney failure with tubular necrosis; E43 Unspecified severe protein-calorie malnutrition; G93.41 Metabolic encephalopathy; I50.43 Acute on chronic combined systolic (congestive) and diastolic (congestive) heart failure; S12.9XXA Fracture of neck, unspecified, initial encounter; E87.1 Hypo-osmolality and hyponatremia; I13.0 Hypertensive heart and chronic kidney disease with heart failure and stage 1 through stage 4 chronic kidney disease, or unspecified chronic kidney disease; N39.0 Urinary tract infection, site not specified; D68.9 Coagulation defect, unspecified; I48.20 Chronic atrial fibrillation, unspecified; E86.0 Dehydration; E87.5 Hyperkalemia; I48.91 Unspecified atrial fibrillation; J44.9 Chronic obstructive pulmonary disease, unspecified; N18.3 Chronic kidney disease, stage 3 (moderate); D64.9 Anemia, unspecified; D69.6 Thrombocytopenia, unspecified; K25.9 Gastric ulcer, unspecified as acute or chronic, without hemorrhage or perforation; E87.6 Hypokalemia; K72.90 Hepatic failure, unspecified without coma; A49.01 Methicillin susceptible Staphylococcus aureus infection, unspecified site; K44.9 Diaphragmatic hernia without obstruction or gangrene; Z66 Do not resuscitate; W18.30XA Fall on same level, unspecified, initial encounter; Y93.89 Activity, other specified; Z99.2 Dependence on renal dialysis; Z87.11 Personal history of peptic ulcer disease; Z78.1 Physical restraint status; Z87.891 Personal history of nicotine dependence; Y92.89 Other specified places as the place of occurrence of the external cause; Y99.8 Other external cause status; Z68.22 Body mass index [BMI] 22.0-22.9, adult
CPT/HCPCS: 36415; 36569; 43235; 70450; 71045; 73560; 74176; 76775; 80048; 80053; 80074; 80202; 80307; 81001; 82306; 82550; 82570; 82728; 82962; 83520; 83540; 83550; 83605; 83735; 83880; 83970; 84100; 84132; 84156; 84300; 84443; 84484; 84550; 85007; 85014; 85018; 85025; 85027; 85610; 85730; 86038; 86256; 86850; 86900; 86901; 86920; 87040; 87077; 87081; 87086; 87088; 87147; 87186; 87493; 90935; 93005; 93306; 94640; 96365; 96367; 96368; 96375; 96376; 97530; C9113; G0378; J0610; J0690; J0885; J1642; J1815; J2250; J2405; J2543; J3430; J3480; J7060; P9047